=== PATIENT | female | born 1990 | race Caucasian/White ===

== ENCOUNTER → 2016-05-27 | Outpatient (CLI) | payer OTHER ==
[~2016-05-27] MED LIST: CEPH500C PO; FLUO20CA35 PO; IBUP-1050 PO; INSDGI SC; INSUINJ5 SC; LORA10TA5 PO; METF750T PO; MTR/600 PO; ZLF/50 PO; [UNRECOGNIZED DRUG - CODE] SQ
[2016-05-27 14:47] LABS: PREG INTERNAL NEGATIVE QC NEG CLEAR BACKGROUND; PREG INTERNAL POSITIVE QC POS CONTROL LINE
[2016-05-27 15:06] LABS: ALT/SGPT 18 U/L (12-78); AST/SGOT 6 U/L (15-37); BLOOD UREA NITROGEN 17 mg/dl (7-18); BUN/CREATININE RATIO 20.6 (10-20); CALCIUM 9.5 mg/dl (8.5-10.1); CARBON DIOXIDE 21 mmol/L (21-32); CHLORIDE 98 mmol/L (98-107); CHOLESTEROL 294 mg/dl (0-200); CREATININE 0.83 mg/dl (0.60-1.20); GLUCOSE 405 mg/dl (70-99); POTASSIUM 4.3 mmol/L (3.5-5.1); SODIUM 131 mmol/L (136-145); TRIGLYCERIDES 184 mg/dl (0-150); VERY LOW DENSITY LIPOPROT CALC 37 mg/dl
[2016-05-27 15:13] LABS: ALB/GLOB RATIO 0.9 (0.9-2); ALKALINE PHOSPHATASE 130 U/L (45-117); CHOLESTEROL/HDL RATIO 4.9; HDL CHOLESTEROL 60 mg/dl; LDL CHOLESTEROL CALCULATED 197 mg/dl
[2016-05-27 15:18] LABS: BETA-HYDROXYBUTYRATE 2.45 mg/dL (0.2-2.81)
[2016-05-27 19:28] LABS: CREATININE RANDOM URINE < 13.0 mg/dl
[2016-05-28 06:02] LABS: ESTIMATED AVERAGE GLUCOSE 369 mg/dl; HA1C FLAG Normal (Normal)
== END | disposition home or self-care (01) ==
LOC: C.LAB1850 13:49
PROVIDERS: ATTEND Internal Medicine
DX: E11.65 Type 2 diabetes mellitus with hyperglycemia (principal)

== ENCOUNTER → 2016-07-09 | Outpatient (CLI) | payer OTHER ==
[~2016-07-09] MED LIST changes: +BUSP-8 PO; +HYDR-5688 PO
[2016-07-09 16:27] LABS: THYROID STIMULATING HORMONE 1.71 uIu/ml (0.300-4.500)
[2016-07-14 04:22] LABS: ISLET CELL AB NEGATIVE (NEGATIVE); MICROSOMAL AB <1 IU/ML (<9)
== END | disposition home or self-care (01) ==
LOC: C.LAB1850 14:49
PROVIDERS: ATTEND Internal Medicine Endocrinology, Diabetes & Metabolism
DX: E11.65 Type 2 diabetes mellitus with hyperglycemia (principal)

== ENCOUNTER → 2016-08-24 | Outpatient (CLI) | payer OTHER | END | disposition home or self-care (01) | LOC: C.PAPS 07:56 | PROVIDERS: ATTEND Physician Assistant | DX: Z01.419 Encounter for gynecological examination (general) (routine) without abnormal findings (principal) ==

== ENCOUNTER 2016-09-11 18:13 | Emergency (ER) | payer OTHER ==
[~2016-09-11] VITALS: Ht 163.8 cm; Wt 107.9 kg
[~2016-09-11 18:13] MED LIST changes: -BUSP-8 PO; -CEPH500C PO; -HYDR-5688 PO; -INSUINJ5 SC; -LORA10TA5 PO; -METF750T PO; -MTR/600 PO; -ZLF/50 PO
[2016-09-11 18:15] VITALS: TEMP 36.6; Ht 163.8 cm; Wt 107.9 kg
[2016-09-11] MEDS ORDERED: XYLOCAINE 1%/SOD BICARB 20 ML VIAL INFIL ONE (18:31)
--- NOTE | 2016-09-11 18:37 | EMERGENCY ROOM VISIT NOTE ---
History Report prepared by Elva: Massiel Mir Under the Supervision of: Dr. Jagdish Mo M.D. First contact with patient: 18:24 Chief Complaint: WOUND INFECTION Stated Complaint: CYST, LEFT SIDE OF VAGINA Nursing Triage Summary: Pt states, "I have a really bad painful on the left side of my vagina and it got bigger over the past two days. I've had lots of these." Denies drainage. History of Present Illness The patient is a 26 year old female who presents to the Emergency Room with complaints of a worsening cyst to her vagina that appeared five days ago. She currently rates her discomfort as a 6/10 in severity. The patient reports that she has a history of previous cysts, noting that she has had them drained in the emergency department in the past. She states that over the last two days her pain has worsened. The patient states that she typically gets the cysts from ingrown hairs. She denies any fever or chills. The patient states that she is a diabetic and her blood glucose levels have been running 300-400 mg/dL. Source of History: patient Onset: five days ago Position: other (vagina) Symptom Intensity: 6/10 Quality: other (cyst) Timing: worsening Associated Symptoms: No fevers, No chills Review of Systems All systems have been listed, reviewed, and are negative other than those previously mentioned. Please see Additional Medical History Sheet. Past Medical & Surgical Medical Problems: (1) Abscess of labia (2) Abscess packing removal (3) Anxiety (4) Bronchitis (5) delivery delivered (6) De Quervain's tenosynovitis (7) Diab Selena Wo Compl, Type Ii Or Unspec Type, Not Uncntrld (8) Diabetes mellitus affecting in third trimester (9) Encounter for wound re-check (10) Fall (11) Hypertension Nos (12) Left groin pain (13) Lumbar strain (14) Migraine (15) Nausea & vomiting (16) Non-reassuring heart tones complicating , antepartum (17) Obesity (BMI 30.0-34.9) (18) Pain, dental (19) Preeclampsia (20) (21) Proteinuria affecting in third trimester, antepartum (22) Skin abscess (23) Type 2 diabetes mellitus affecting in third trimester, antepartum Surgical Problems: (1) H/O section (2) No significant past surgical history Family History Cancer Diabetes mellitus FATHER MOTHER SISTER, Onset:15's - 20 Heart disease FATHER ([place] MOTHER ( of [place]) GRANDFATHER [place] Hypertension Stroke GRANDMOTHER Social History Smoking Status: Never Smoker Alcohol Use: none Drug Use: none Marital Status: Housing Status: lives with family Occupation Status: unemployed Current/Historical Medications Scheduled Cephalexin Monohydrate (Keflex), 500 MG PO QID Insulin Glargine (Lantus), 50 UNITS SC BID Insulin Glulisine (Apidra), 30 UNITS SC TIDM Loratadine (Claritin), 10 MG PO DAILY Metformin Hcl (Glucophage Er), 750 MG PO DAILY Sertraline HCl (Sertraline HCl), 50 MG PO DAILY Scheduled PRN Ibuprofen (Ibuprofen), 600 MG PO Q6H PRN for Pain Allergies Coded Allergies: No Known Allergies (Unverified , 12/02/15) Physical Exam Vital Signs Date Time Temp Pulse Resp B/P (MAP) Pulse Ox O2 Delivery O2 Flow Rate FiO2 09/11/16 20:07 104 20 159/100 98 09/11/16 18:15 36.6 99 18 149/92 95 Room Air Physical Exam GENERAL: Patient awake, alert, oriented x 3. Patient follows commands. Patient does not appear toxic. Patient is adequately hydrated and well- nourished. SKIN: No erythema, pallor, cyanosis or rash HEENT: Normal head, pupils equal, reactive to light and accommodation. Ears normal. Oral cavity and posterior pharynx appear normal. Neck: Without adenopathy, no neck vein distention. LUNGS: Clear to auscultation. No wheezes, no rales, no rhonchi. HEART: No murmurs. No gallops. No rubs ABDOMEN: No masses, no rebound, no hepatomegaly or splenomegaly. GENITALIA: Small quarter sized sebaceous folliculi cyst just lateral to the labia major on the left. EXTREMITIES: No signs of trauma. No pedal or pretibial edema. No calf or thigh tenderness. NEUROLOGIC: Cranial nerves II-XII within normal limits. No gross motor sensory function deficits. Medical Decision & Procedures Laboratory Results 09/11/16 18:40 Red Blood Count 4.61, Mean Corpuscular Volume 82.9, Mean Corpuscular Hemoglobin 28.2, Mean Corpuscular Hemoglobin Concent 34.0, Mean Platelet Volume 11.5, Neutrophils (%) (Auto) 64.8, Lymphocytes (%) (Auto) 26.8, Monocytes (%) (Auto) 5.7, Eosinophils (%) (Auto) 1.7, Basophils (%) (Auto) 0.8, Neutrophils # (Auto) 5.34, Lymphocytes # (Auto) 2.21, Monocytes # (Auto) 0.47, Eosinophils # (Auto) 0.14, Basophils # (Auto) 0.07 09/11/16 18:40 Test 09/11/16 18:40 White Blood Count 8.25 K/uL (4.8-10.8) Red Blood Count 4.61 M/uL (4.2-5.4) Hemoglobin 13.0 g/dL (12.0-16.0) Hematocrit 38.2 % (37-47) Mean Corpuscular Volume 82.9 fL (80-100) Mean Corpuscular Hemoglobin 28.2 pg (25-34) Mean Corpuscular Hemoglobin Concent 34.0 g/dl (32-36) Platelet Count 267 K/uL (130-400) Mean Platelet Volume 11.5 fL (7.4-10.4) Neutrophils (%) (Auto) 64.8 % Lymphocytes (%) (Auto) 26.8 % Monocytes (%) (Auto) 5.7 % Eosinophils (%) (Auto) 1.7 % Basophils (%) (Auto) 0.8 % Neutrophils # (Auto) 5.34 K/uL (1.4-6.5) Lymphocytes # (Auto) 2.21 K/uL (1.2-3.4) Monocytes # (Auto) 0.47 K/uL (0.11-0.59) Eosinophils # (Auto) 0.14 K/uL (0-0.5) Basophils # (Auto) 0.07 K/uL (0-0.2) RDW Standard Deviation 37.0 fL (36.4-46.3) RDW Coefficient of Variation 12.2 % (11.5-14.5) Immature Granulocyte % (Auto) 0.2 % Immature Granulocyte # (Auto) 0.02 K/uL (0.00-0.02) Anion Gap 8.0 mmol/L (3-11) Est Creatinine Clear Calc Drug Dose 128.5 ml/min Estimated GFR () 117.0 Estimated GFR (Non- 100.9 BUN/Creatinine Ratio 13.4 (10-20) Calcium Level 8.1 mg/dl (8.5-10.1) Beta-Hydroxybutyric Acid 2.13 mg/dL (0.2-2.81) Laboratory results as stated above per my review. Medications Administered Medications (Trade) Dose Ordered Sig/Mercedes Route Start Time Stop Time Status Last Admin Dose Admin Insulin Human Regular (novoLIN-R U-100 PER UNIT) 10 units NOW STAT SC 09/11/16 20:12 09/11/16 20:14 DC 09/11/16 20:22 10 UNITS Cephalexin Monohydrate (Keflex Cap) 500 mg NOW ONCE PO 09/11/16 20:15 09/11/16 20:16 DC 09/11/16 20:20 500 MG Ibuprofen (Motrin Tab) 600 mg NOW STAT PO 09/11/16 20:12 09/11/16 20:14 DC 09/11/16 20:20 600 MG Procedure Incision & Drainage Indication: Abscess. Location: lateral to left labia majora Verbal consent was obtained after the risks and benefits were explained, including but not limited to bleeding, scarring, infection, pain, and bone/joint /nerve damage. At this time, the risks of the procedure are less than the risks of NOT performing the procedure. A time out was taken and the correct patient and site identified. The skin was prepped with betadine and a sterile field set. The wound was anesthetized with 2 ml of 1% lidocaine without epinephrine. The abscess cavity was entered with a number 11 blade and a large amount of white purulent material expressed. Copious irrigation was performed using normal saline. The wound was explored for foreign bodies and none found. 1 cm incision and was bluntly dissected with scissors and packed with plain gauze. Debridement was not performed. Packing placed and a sterile dressing applied. Detailed wound care instructions and signs and symptoms of worsening infection reviewed with the patient. No complications and the patient tolerated the procedure well. ED Course 1824: Past medical records reviewed. The patient was evaluated in room A12B. A complete history and physical examination was performed. 1830: Ordered Lidocaine HCl 20 ml INFIL. 1852: I performed the I&D at this time. See procedure note for further detail. 2008: I reevaluated the patient and she is resting comfortably. I discussed the exam findings with her. 2011: Ordered Motrin Tab 600 mg PO, Insulin Human Regular 10 units SC. 2014: Ordered Keflex Cap 500 mg PO. Medical Decision Nurses notes reviewed. Medical history sheet reviewed. Differential diagnosis includes but is not limited to: cellulitis, abscess, Bartholin's cyst. The patient is assessed near her Vulva. She has had this in that location the past. She is also had cysts on her arms. She has a history hiradenitis suppurativa. This was I&D and a large amount of his release. Culture was sent. A small amount of packing was placed. The patient will be placed on Keflex. I do not believe she needs Bactrim at this time. Patient has had multiple cultures past which has not grown out any MRSA. Labs were also evaluated. Blood sugar is over 400. She was given 10 units of subcutaneous insulin. Patient was taken regular Lantus insulin tonight. This was also given ibuprofen and Keflex. She will continue those medications at home. Medication Reconciliation: I attest that I have personally reviewed the patient' s current medication list. Blood Pressure Screening: Patient was found to have an elevated blood pressure and was referred to their primary doctor for recheck and further treatment. Impression Primary Impression: Hidradenitis Additional Impression: Skin abscess Scribe Attestation The scribe's documentation has been prepared under my direction and personally reviewed by me in its entirety. I confirm that the note above accurately reflects all work, treatment, procedures, and medical decision making performed by me. Departure Information Dispostion Home / Self-Care Prescriptions Cephalexin Monohydrate (Keflex) 500 Mg Cap 500 MG PO QID, #20 CAP Prov: Jagdish Mo M.D. 09/11/16 Referrals Oren Patton M.D. (PCP) Forms HOME CARE DOCUMENTATION FORM, IMPORTANT VISIT INFORMATION, WORK / SCHOOL INSTRUCTIONS Patient Instructions My [facility] Additional Instructions Apply warmth soaks to the affected area 3 times a day. Keflex 4 times a day and return in 2 days to have the packing removed. Have your blood pressure rechecked by your family physician within the next 10 days. Check your blood sugar tonight before going to bed and then recheck your blood sugars frequently over the next 48 hours. Problem Qualifiers
[2016-09-11] MEDS ORDERED: METF750T PO (18:56)
[2016-09-11] MEDS ORDERED: MTR/600 PO (18:56)
[2016-09-11] MEDS ORDERED: LORA10TA5 PO (18:56)
[2016-09-11] MEDS ORDERED: INSUINJ5 SC (18:56)
[2016-09-11] MEDS ORDERED: ZLF/50 PO (18:56)
[2016-09-11] MEDS ORDERED: INSDGI SC (18:56)
[2016-09-11 19:02] LABS: BASO % 0.8 %; BASO ABS # 0.07 K/uL (0-0.2); COMPLETE YES; EOS % 1.7 %; HEMATOCRIT 38.2 % (37-47); IG% 0.2 %; LYMPH % 26.8 %; LYMPH ABS # 2.21 K/uL (1.2-3.4); MEAN CELL VOLUME 82.9 fL (80-100); MEAN CORPUSCULAR HEMOGLOBIN 28.2 pg (25-34); MEAN PLATELET VOLUME 11.5 fL (7.4-10.4); MONO % 5.7 %; NEUT % 64.8 %; PLATELET COUNT 267 K/uL (130-400); RED BLOOD COUNT 4.61 M/uL (4.2-5.4); WHITE BLOOD COUNT 8.25 K/uL (4.8-10.8)
[2016-09-11 19:28] LABS: BUN/CREATININE RATIO 13.4 (10-20); CALCIUM 8.1 mg/dl (8.5-10.1); CREATININE 0.81 mg/dl (0.60-1.20); POTASSIUM 4.2 mmol/L (3.5-5.1)
[2016-09-11 19:41] LABS: BETA-HYDROXYBUTYRATE 2.13 mg/dL (0.2-2.81)
[2016-09-11] MEDS ORDERED: CEPH500C PO (20:05)
[2016-09-11] MEDS ORDERED: NovoLIN-R INSULIN PER UNIT CHARGE SC STA (20:12)
[2016-09-11] MEDS ORDERED: IBUPROFEN 600 MG TAB PO STA (20:12)
[2016-09-11] MEDS ORDERED: CEPHALEXIN MONOHYDRATE 250 MG CAP PO ONE (20:15)
[2016-09-11 20:39] VITALS: BP 132/87; PULSE 84; O2SAT 95
== END 2016-09-11 21:11 | disposition home or self-care (01) ==
LOC: C.EDB 18:14 → C.EDA 21:11
DX: L73.2 Hidradenitis suppurativa (principal); N76.0 Acute vaginitis; E11.9 Type 2 diabetes mellitus without complications; I10 Essential (primary) hypertension; F41.9 Anxiety disorder, unspecified; Z83.3 Family history of diabetes mellitus; Z82.49 Family history of ischemic heart disease and other diseases of the circulatory system; Z82.3 Family history of stroke

== ENCOUNTER 2017-01-31 10:35 | Emergency (ER) | payer OTHER ==
[~2017-01-31] VITALS: Ht 162.6 cm; Wt 104.2 kg
[~2017-01-31 10:35] MED LIST changes: +CEPH500C PO; -FLUO20CA35 PO; -IBUP-1050 PO; +INSUINJ5 SC; +LORA10TA5 PO; +METF750T PO; +MTR/600 PO; +ZLF/50 PO; -[UNRECOGNIZED DRUG - CODE] SQ
[2017-01-31 10:49] VITALS: TEMP 37.1; Ht 162.6 cm; Wt 104.2 kg
[2017-01-31] MEDS ORDERED: HYDROCODONE/ACETAMOPHEN 5/325MG TAB PO STA (10:56)
[2017-01-31] MEDS ORDERED: BUSP-8 PO (11:06)
--- NOTE | 2017-01-31 11:32 | DIAGNOSTIC IMAGING REPORT ---
R KNEE 3 VIEWS CLINICAL HISTORY: R knee pain s/p twisting trauma. Pain. COMPARISON: None. DISCUSSION: The bones and joint spaces appear intact. There is no evidence of dislocation or bony disease. small joint effusion. Small old avulsion from the medial patella. Potential small flake like avulsion medial patella possibly acute to subacute. IMPRESSION: 1. Small flake like avulsion medial patella. Small joint effusion. The above report was generated using voice recognition software. It may contain grammatical, syntax or spelling errors. Electronically signed by: Stone David M.D. 01/31/2017 11:31 AM Dictated Date/Time: 01/31/2017 11:29 AM
[2017-01-31] MEDS ORDERED: HYDR-5688 PO (11:59)
--- NOTE | 2017-01-31 12:00 | EMERGENCY ROOM VISIT NOTE ---
History First contact with patient: 10:51 Chief Complaint: KNEEPAIN Stated Complaint: RIGHT KNEE PAIN-INJURED ON TUESDAY History of Present Illness The patient is a 27 year old female who presents to the Emergency Room via private vehicle with complaints of "right knee pain, injured on Tuesday". The patient states that Tuesday she was going [place] an amusement park, when she was attempting to get into the van and twisted her right knee. She points to the lateral medial aspects as a location of pain that she currently rates as a 5/ 10. She denies any chance of . Review of Systems A complete 6-point Review of Systems was discussed with the patient, with pertinent positives and negatives listed in the History of Present Illness. All remaining Review of Systems questions can be considered negative unless otherwise specified. Past Medical/Surgical History Medical Problems: (1) Abscess of labia (2) Abscess packing removal (3) Anxiety (4) Bronchitis (5) delivery delivered (6) De Quervain's tenosynovitis (7) Diab Selena Wo Compl, Type Ii Or Unspec Type, Not Uncntrld (8) Diabetes mellitus affecting in third trimester (9) Encounter for wound re-check (10) Fall (11) Hypertension Nos (12) Left groin pain (13) Lumbar strain (14) Migraine (15) Nausea & vomiting (16) Non-reassuring heart tones complicating , antepartum (17) Obesity (BMI 30.0-34.9) (18) Pain, dental (19) Preeclampsia (20) (21) Proteinuria affecting in third trimester, antepartum (22) Skin abscess (23) Type 2 diabetes mellitus affecting in third trimester, antepartum Surgical Problems: (1) H/O section (2) No significant past surgical history Family History Cancer Diabetes mellitus FATHER MOTHER SISTER, Onset:15's - 20 Heart disease FATHER ([place]) MOTHER ( of [place]) GRANDFATHER ([place]) Hypertension Stroke GRANDMOTHER Social History Smoking Status: Never Smoker Alcohol Use: none Drug Use: none Marital Status: Housing Status: lives with family Occupation Status: unemployed Current/Historical Medications Scheduled Buspirone Hcl (Buspirone Hcl), 10 MG PO BID Insulin Glargine (Lantus), 50 UNITS SC BID Insulin Glulisine (Apidra), 60 UNITS SC TIDM Loratadine (Claritin), 10 MG PO DAILY Metformin Hcl (Glucophage Er), 750 MG PO DAILY Scheduled PRN Hydrocodone/Acetaminophen 5MG/325MG ([place] 5MG/325MG), 1-2 TABLET PO Q6 PRN for Pain Physical Exam Vital Signs Date Time Temp Pulse Resp B/P (MAP) Pulse Ox O2 Delivery O2 Flow Rate FiO2 01/31/17 12:10 82 16 131/99 98 01/31/17 10:49 37.1 74 18 149/96 98 Room Air Physical Exam VITAL SIGNS - Vital signs and nursing notes were reviewed. Stable. GENERAL - 27-year-old female appearing her stated age who is in no acute distress. Communicates well with provider and answers questions appropriately. SKIN - Without rashes. Skin overlying the right knee is unremarkable. EXTREMITIES - No clubbing or peripheral cyanosis. No pretibial edema present. There is tenderness to palpation overlying the patient's right anterior and medial and lateral aspects of the anterior knee. There is also some posterior knee tenderness. +5/5 strength noted in UE/LE bilaterally. She is neurovascularly intact in the right lower extremity. Medical Decision & Procedures ER Provider Diagnostic Interpretation: R KNEE 3 VIEWS CLINICAL HISTORY: R knee pain s/p twisting trauma. Pain. COMPARISON: None. DISCUSSION: The bones and joint spaces appear intact. There is no evidence of dislocation or bony disease. small joint effusion. Small old avulsion from the medial patella. Potential small flake like avulsion medial patella possibly acute to subacute. IMPRESSION: 1. Small flake like avulsion medial patella. Small joint effusion. The above report was generated using voice recognition software. It may contain grammatical, syntax or spelling errors. Electronically signed by: Stone David M.D. 01/31/2017 11:31 AM Dictated Date/Time: 01/31/2017 11:29 AM Medications Administered Medications (Trade) Dose Ordered Sig/Mercedes Route Start Time Stop Time Status Last Admin Dose Admin Acetaminophen/ Hydrocodone Bitart ([place] 5/325 Tab) 1 tab NOW STAT PO 01/31/17 10:56 01/31/17 10:57 DC 01/31/17 11:08 1 TAB Medical Decision Patient was seen and evaluated as above. She presents to us today with right knee pain status post twisting injury. The posterior knee pain did not start until after the injury. I do not suspect DVT. X-ray was obtained after her verifying no chance of . She was given [place] for her pain while here in the emergency department as well as ice. X-ray results as above. There is a small avulsion which may be acute/subacute. Regardless, she'll be splinted with a knee immobilizer, made nonweightbearing with crutches. She is to follow with her established orthopedic surgeon. She'll be given a small prescription of [place] for pain which was beneficial for her while in the emergency department. She was educated upon management, educated upon worrisome symptoms which to return, had questions answered prior to discharge, and was discharged home in good condition. In the evaluation and treatment of this patient, the following differential diagnoses were considered: Patellar Fracture, Tibial Plateau Fracture, Distal Femur Fracture, ACL Injury, PCL Injury, Collateral Ligament Injury, Pes Anserine Bursitis, Maison[place]uve Fracture. [place] Drug Monitoring Program Search Results: patient reviewed within database, no issues identified Impression Primary Impression: Knee pain Departure Information Dispostion Home / Self-Care Condition GOOD Prescriptions Hydrocodone/Acetaminophen 5MG/325MG ([place] 5MG/325MG) Tab 1-2 TABLET PO Q6 Y for Pain, #15 TAB For Initial Treatment Prov: Carlo Ott PA-C 01/31/17 Referrals Oren Patton M.D. (PCP) Yassine Canela V.D.O. Patient Instructions My [facility] Additional Instructions You have been treated in the Emergency Department for Knee Pain. You have received pain medicine in the emergency department which impairs your ability to operate a vehicle. It is illegal for you to drive after receiving these medicines. You have been prescribed NORCO to be used for pain control. This is a narcotic medication. You cannot drive or consume alcohol while on this medicine. This medicine should only be used for pain that cannot be controlled with over-the- counter pain medicines. For pain control, you can use the following [id number] medicines (if >12 yo): - Regular strength (325mg/tab) Tylenol (acetaminophen) 2 tabs every 4-6 hours as needed. Do not exceed 12 tablets in a 24 hour period. Avoid taking more than 3 grams (3000 mg) of Tylenol per day. This includes any other sources of acetaminophen you may take on a regular basis. Not with NORCO!! - Regular strength (200 mg/tab) Advil (ibuprofen) 1-2 tabs every 4-6 hours as needed. Do not exceed a dose of 3200 mg per day. If this is a recent injury (<24 hrs), ice can be applied to the area of pain for the first 3 days to help decrease pain and inflammation. Ice massages can be performed by freezing water in a paper cup, peeling back the cup to expose the ice and then massaging over the affected area. You have been provided the number for an Orthopaedic Surgeon. You should call this number as soon as possible to establish a follow-up visit from today's Emergency Department visit. Keep the knee brace in place until cleared by Orthopedics. Use the crutches you have been provided to keep ALL weight off of the knee until weight bearing is tolerable. Return to the Emergency Department if your current symptoms worsen despite treatment course outlined above.
[2017-01-31 12:10] VITALS: BP 131/99; PULSE 82; O2SAT 98
== END 2017-01-31 12:10 | disposition home or self-care (01) ==
LOC: C.EDB 10:36 → C.EDD 12:10
DX: M25.561 Pain in right knee (principal); I10 Essential (primary) hypertension; E11.9 Type 2 diabetes mellitus without complications; F41.9 Anxiety disorder, unspecified; Z87.828 Personal history of other (healed) physical injury and trauma; Z86.19 Personal history of other infectious and parasitic diseases; Z91.81 History of falling

== ENCOUNTER 2017-04-23 16:50 | Emergency (ER) | payer OTHER ==
[~2017-04-23] VITALS: Ht 162.6 cm; Wt 101.5 kg
[~2017-04-23 16:50] MED LIST changes: +BUSP-8 PO; -CEPH500C PO; +HYDR-5688 PO; -INSDGI SC; +INSDGI SQ; -LORA10TA5 PO; +LORA10TA6 PO; -MTR/600 PO; -ZLF/50 PO
[2017-04-23 16:59] VITALS: TEMP 37; Ht 162.6 cm; Wt 101.5 kg
[2017-04-23] MEDS ORDERED: BUSP-8 PO (17:16)
[2017-04-23] MEDS ORDERED: HYDR-5688 PO ×2 (17:17→18:21)
[2017-04-23] MEDS ORDERED: LIDO/EPINEPHRINE/SOD BICARB 20 ML VIAL INFIL ONE (17:30)
[2017-04-23] MEDS ORDERED: HYDROCODONE/ACETAMOPHEN 5/325MG TAB PO ONE (17:30)
[2017-04-23] MEDS ORDERED: CEPH500C2 PO (18:21)
--- NOTE | 2017-04-23 18:23 | EMERGENCY ROOM VISIT NOTE ---
ED Visit Note First contact with patient: 17:08 CHIEF COMPLAINT: Infection in the left groin 2 days HISTORY OF PRESENT ILLNESS: Patient is a 27-year-old white female who presents to the emergency department for evaluation of a suspected abscess in her left groin area. She has a history of hidradenitis, and has had multiple abscesses, some of which have required I&D. The patient reports that she wore new underwear about 3 days ago, and they were a little tight. She states that the abscess developed the following day in the crease of her left groin where the underwear was squeezing. She has been sitting in a hot tub, but symptoms are not improving. The area is slowly getting larger, more painful and tender. No fever, chills, or loss of appetite. She found an old prescription for Olga, and has taken a few tablets for discomfort. The patient rates her discomfort a 8/10. REVIEW OF SYSTEMS: Review of systems as per HPI. All other systems reviewed were negative. At least 6 systems reviewed. PMH: Electronic medical records are reviewed and summarized as above/below. See Problem List. SOCIAL HISTORY: Patient lives at home with her family. PHYSICAL EXAM: Vital Signs: Reviewed Nurse's notes. CONSTITUTIONAL: Patient is a well appearing, uncomfortable, 27-year-old white female who is awake and alert and in no acute distress. INTEGUMENTARY: There is an indurated area in the left inguinal crease which measures about 3 x 5 cm. It is tender and fluctuant but there is no pointing or drainage. There is some surrounding erythema, no overt cellulitic changes. EMERGENCY DEPARTMENT COURSE: The patient was seen and examined as above. Old records are reviewed. She does not have a history of MRSA. She was medicated with 2 Olga tablets orally prior to I&D procedure. Using saline and Betadine cleansing, lidocaine anesthesia, and sterile technique, the abscess cavity was incised with a number 11 scalpel blade. Purulent material drained and more was expressed. Culture was obtained and is pending. The abscess cavity was decompressed, irrigated copiously with normal saline solution, and probed for loculations. Abscess was then packed with plain gauze packing in Betadine. Absorbent dressing was applied. The patient was placed on Keflex pending the culture results. She rated her discomfort a 1/10 at discharge. The abscess does not involve the perirectal or perianal areas. The labia are spared. Medication reconciliation: I attest that I have personally reviewed the patient' s current medication list. Blood pressure screening : Patient was found to have normal blood pressure on screening and does not require follow-up. Patient was reviewed in the [facility] Prescription Drug Monitoring Program, and there were no red flags noted. Problem List Medical Problems: (1) Abscess of labia Status: Resolved (2) Abscess packing removal Status: Resolved (3) Anxiety Status: Chronic (4) Bronchitis Status: Resolved (5) delivery delivered Status: Resolved (6) De Quervain's tenosynovitis Status: Chronic (7) Diab Selena Wo Compl, Type Ii Or Unspec Type, Not Uncntrld Status: Chronic (8) Diabetes mellitus affecting in third trimester Status: Resolved (9) Encounter for abscess packing removal Status: Resolved (10) Encounter for wound re-check Status: Resolved (11) Encounter for wound re-check Status: Resolved (12) Fall Status: Resolved (13) Hidradenitis Status: Chronic (14) Hypertension Nos Status: Chronic (15) Insulin dependent diabetes mellitus Status: Resolved (16) Knee pain Status: Resolved (17) Left groin pain Status: Resolved (18) Lumbar strain Status: Resolved (19) Lymphangitis Status: Resolved (20) Migraine Status: Resolved (21) Nausea & vomiting Status: Resolved (22) Non-reassuring heart tones complicating , antepartum Status: Resolved (23) Normal psychiatric assessment Status: Resolved (24) Obesity (BMI 30.0-34.9) Status: Chronic (25) Pain, dental Status: Resolved (26) Paronychia of right ring finger Status: Resolved (27) Paronychia of right ring finger Status: Resolved (28) Preeclampsia Status: Resolved (29) Status: Resolved (30) Proteinuria affecting in third trimester, antepartum Status: Resolved (31) Skin abscess Status: Resolved (32) Type 2 diabetes mellitus affecting in third trimester, antepartum Status: Resolved Surgical Problems: (1) H/O section Status: Chronic (2) No significant past surgical history Status: Resolved Current/Historical Medications Scheduled Buspirone Hcl (Buspirone Hcl), 20 MG PO HS Cephalexin Monohydrate (Keflex), 500 MG PO TID Insulin Glargine (Lantus), 50 UNITS SQ BID Insulin Glulisine (Apidra), 60 UNITS SC TIDM Loratadine (Claritin), 10 MG PO DAILY Metformin Hcl (Glucophage Er), 750 MG PO DAILY Scheduled PRN Hydrocodone/Acetaminophen 5MG/325MG (Olga 5MG/325MG), 1 TAB PO TID PRN for Pain Hydrocodone/Acetaminophen 5MG/325MG (Olga 5MG/325MG), 1-2 TABLETS PO Q4 PRN for Pain Allergies Coded Allergies: No Known Allergies (Unverified , 01/31/17) Vital Signs Date Time Temp Pulse Resp B/P (MAP) Pulse Ox O2 Delivery O2 Flow Rate FiO2 04/23/17 18:40 85 20 149/90 95 Room Air 04/23/17 16:59 37.0 103 20 140/95 96 Room Air Medications Administered Medications (Trade) Dose Ordered Sig/Mercedes Route Start Time Stop Time Status Last Admin Dose Admin Acetaminophen/ Hydrocodone Bitart (Olga 5/325 Tab) 2 tab NOW ONCE PO 04/23/17 17:30 04/23/17 17:31 DC 04/23/17 17:46 2 TAB Cephalexin Monohydrate (Keflex Cap) 500 mg NOW ONCE PO 04/23/17 18:30 04/23/17 18:31 DC 04/23/17 18:40 500 MG Departure Information Impression Primary Impression: Skin abscess Prescriptions Hydrocodone/Acetaminophen 5MG/325MG (Olga 5MG/325MG) Tab 1-2 TABLETS PO Q4 Y for Pain, #20 TAB For Initial Treatment Prov: Paola Ruiz PA 04/23/17 Cephalexin Monohydrate (KEFLEX) 500 Mg Cap 500 MG PO TID, #30 CAP Prov: Paola Ruiz PA 04/23/17 Referrals No Doctor, Assigned (PCP) Patient Instructions My [facility] Additional Instructions DO NOT drive, drink alcohol, operate machinery, or perform dangerous activities today. You were given medications in the ER that can affect your ability to safely function or operate a vehicle. Hydrocodone/Acetaminophen (Olga) 5/325 mg: Take 1-2 pills every four hours for breakthrough pain. Avoid alcohol, operating machinery or dangerous equipment, working on ladders or roofs, DRIVING, or situations where being under the influence may be dangerous. It is recommended to use an ockf-sxd-dtyzjpx stool softener such as Colace, 100mg twice daily while taking this medication to avoid constipation. Cephalexin(Keflex) 500mg: Take one pill 3 times daily for 10 days for your skin infection. All antibiotics can cause diarrhea. If this occurs and you feel worse or it does not resolve in 1-2 days follow up with your doctor or return to the Emergency Department as this could be signs of serious underlying problems. Any medication can cause an allergic reaction, stop the pills immediately and return to the ER for rash, hives, breathing difficulties, or swelling. Ibuprofen(Motrin, Advil) may be used for fever or pain. Use 600mg every six hours as needed. Take with food. Avoid using more than 2400mg in a 24 hour period. Do not use 2400mg per day for more than three consecutive days without physician direction. Prolonged inappropriate use can lead to stomach upset or ulcers. (AND/OR) Acetaminophen(Tylenol) may be used for fever or pain. Use 1000mg every six hours as needed. Avoid using more than 3000mg in a 24 hour period. Warm compresses to the affected area 4 times daily for 15-20 minutes. Dressing changes daily, more often if the area becomes saturated or soiled. May shower, be careful to not inadvertently removed the packing in changes. Rest and drink plenty of fluids. Continue current medications. Packing removal in 48 hours. Return to the ER for severe pain, persistent fevers, spreading redness, or any worsening of your condition. Follow up with your primary physician within 2-3 days for a recheck of the current condition.
[2017-04-23] MEDS ORDERED: CEPHALEXIN MONOHYDRATE 250 MG CAP PO ONE (18:30)
[2017-04-23 18:40] VITALS: BP 149/90; PULSE 85; O2SAT 95
== END 2017-04-23 18:43 | disposition home or self-care (01) ==
LOC: C.EDB 16:51 → C.EDC 18:43
DX: L02.214 Cutaneous abscess of groin (principal); F41.9 Anxiety disorder, unspecified; M65.4 Radial styloid tenosynovitis [de Quervain]; E11.9 Type 2 diabetes mellitus without complications; L73.2 Hidradenitis suppurativa; I10 Essential (primary) hypertension; E66.9 Obesity, unspecified; Z79.4 Long term (current) use of insulin; Z79.84 Long term (current) use of oral hypoglycemic drugs

== ENCOUNTER → 2017-05-03 | Outpatient (CLI) | payer OTHER ==
[~2017-05-03] MED LIST changes: +CEPH500C2 PO
[2017-05-03 10:48] LABS: ALBUMIN 3.6 gm/dl (3.4-5.0); ALKALINE PHOSPHATASE 123 U/L (45-117); ALT/SGPT 16 U/L (12-78); AST/SGOT 4 U/L (15-37); BLOOD UREA NITROGEN 11 mg/dl (7-18); CALCIUM 8.9 mg/dl (8.5-10.1); CARBON DIOXIDE 23 mmol/L (21-32); CHOLESTEROL 223 mg/dl (0-200); CREATININE 0.79 mg/dl (0.60-1.20); GLUCOSE 375 mg/dl (70-99); LDL CHOLESTEROL CALCULATED 156 mg/dl; SODIUM 132 mmol/L (136-145)
[2017-05-03 12:17] LABS: HEMOGLOBIN A1C 13.9 % (4.5-5.6)
[2017-05-05 16:38] LABS: C-PEPTIDE** TC 372 1.33 NG/ML (0.80-3.85)
== END | disposition home or self-care (01) ==
LOC: C.LAB1850 09:21
PROVIDERS: ATTEND Internal Medicine Endocrinology, Diabetes & Metabolism
DX: E11.65 Type 2 diabetes mellitus with hyperglycemia (principal)

== ENCOUNTER → 2017-05-04 | Outpatient (CLI) | payer OTHER ==
--- NOTE | 2017-05-04 12:58 | DIAGNOSTIC IMAGING REPORT ---
SOFT TISS HEAD/NECK-THYROID CLINICAL HISTORY: 27 years-old Female with E04.9 Enlarged [id number]. COMPARISON: CTA of the chest 12/02/2015 TECHNIQUE: Multiple real time sonographic images of the thyroid were obtained accessing vega scale appearance and color doppler flow. FINDINGS: MEASUREMENTS: Right lobe: 5.5 x 1.4 x 1.8 cm Left lobe: 5.0 x 1.4 x 1.4 cm Isthmus: 0.3 cm PARENCHYMA: The thyroid parenchymal echotexture is homogeneous. NODULES: No discrete nodules are appreciated. IMPRESSION: Homogeneous thyroid parenchyma without focal nodule identified. The above report was generated using voice recognition software. It may contain grammatical, syntax or spelling errors. Electronically signed by: Micheal Saldivar M.D. 05/04/2017 12:56 PM Dictated Date/Time: 05/04/2017 12:55 PM
== END | disposition home or self-care (01) ==
LOC: C.ULTR 12:32
PROVIDERS: ATTEND Internal Medicine Endocrinology, Diabetes & Metabolism
DX: E04.9 Nontoxic goiter, unspecified (principal)

== ENCOUNTER → 2017-06-16 | Outpatient (CLI) | payer OTHER ==
[2017-06-16 14:02] LABS: HEP C IGG 13 YRS+OLDER_RFLX NEG (NEG)
== END | disposition home or self-care (01) ==
LOC: C.LAB1850 11:06 → EDBD 11:06
PROVIDERS: ATTEND Physician Assistant
DX: Z11.3 Encounter for screening for infections with a predominantly sexual mode of transmission (principal); L29.8 Other pruritus; R39.9 Unspecified symptoms and signs involving the genitourinary system

== ENCOUNTER 2019-01-19 05:12 | Inpatient (IN) ==
--- NOTE | 2019-01-17 15:28 | PAT Medication Instructions ---
Medication Instructions Date of Service January 17, 2019 Home Medications Medication Instructions Recorded insulin syringe U-100 with needle #200 ea 12/26/18 1 mL 31 gauge x 08/24" loratadine 10 mg tablet 10 mg PO QAM #30 tab 01/16/19 aspirin 81 mg tablet,delayed release 81 mg PO DAILY vitamin,calcium,snuknfno-cziu-hxjpk acid tablet 1 tab PO QAM ranitidine 150 mg tablet 150 mg PO BID insulin glargine [Basaglar KwikPen U-100 Insulin] 40 unit SUBCUT QAM insulin lispro [Admelog U-100 Insulin lispro] See Rx Instructions .ROUTE .COMPLEX insulin glargine [Basaglar KwikPen U-100 Insulin] 50 unit SUBCUT HS levothyroxine 50 mcg PO QAM loratadine 10 mg tablet 10 mg PO QAM ASK your prescriber and surgeon aspirin 81 mg tablet,delayed release 81 mg PO DAILY DO NOT take the morning of surgery vitamin,calcium,teptupfi-zvgh-dkttf acid tablet 1 tab PO QAM insulin lispro [Admelog U-100 Insulin lispro] See Rx Instructions .ROUTE .COM PLEX loratadine 10 mg tablet 10 mg PO QAM Take morning of surgery With a small sip of water, OTHERWISE NOTHING TO EAT OR DRINK AFTER MIDNIGHT: ranitidine 150 mg tablet 150 mg PO BID levothyroxine 50 mcg PO QAM Take evening before surgery ranitidine 150 mg tablet 150 mg PO BID insulin lispro [Admelog U-100 Insulin lispro] See Rx Instructions .ROUTE .COMPLEX insulin glargine [Basaglar KwikPen U-100 Insulin] 50 unit SUBCUT HS Insulin Dependent Diabetic Patients * Test your blood sugar the morning of surgery * If Blood Sugar is GREATER THAN 150, take HALF of your regular dose of: insulin glargine [Basaglar KwikPen U-100 Insulin] take 20 units * If Blood Sugar is LESS THAN 150, DO NOT TAKE ANY: insulin glargine [Basaglar KwikPen U-100 Insulin] Other Notes If you have any questions please call us at [phone] or [phone] or [phone] or [phone]
--- NOTE | 2019-01-18 15:26 | Anesthesiology Consultation ---
Date of Service January 18, 2019 Assessment & Plan (1) Encounter for pre-operative examination: Per OB, no preop labs to be drawn at [facility]- to draw AM DOS. Chart Review Chart Review: Acceptable Risk for Surgery (pending preop labs AM DOS) and Patient seen in Pre Admission Testing Teaching & Discussion Pre-Anesthesia Teaching/Discussion Notes: Instructed NPO after midnight before surgery,except medications with 15 cc of water. Medication instructions provided according to the [facility] guidelines. History Surgery Operation Date: 01/19/19 07:30 Proposed Procedures p Section in LD - Nani Burns MD, FACOG Height/Weight Height: 5 ft 4.5 in Weight: 131 kg Allergies Allergy/AdvReac Type Severity Reaction Status Date / Time No Known Allergies Allergy Verified 01/18/19 13:47 Medications Home Medications Medication Instructions Recorded Confirmed Last Taken aspirin 81 mg tablet,delayed 81 mg PO DAILY 11/08/18 01/18/19 12/29/18 09:30 release 1 tab PO QAM 11/08/18 01/18/19 12/29/18 09:30 vitamin,calcium,ukoottek-vbos-jqrcp acid tablet ranitidine 150 mg tablet 150 mg PO BID 11/15/18 01/18/19 12/29/18 09:30 insulin glargine [Basaglar KwikPen 40 unit SUBCUT QAM 12/16/18 01/18/19 12/29/18 09:30 U-100 Insulin] insulin lispro [Admelog U-100 See Rx Instructions .ROUTE .COMPLEX 12/16/18 01/18/19 12/28/18 20:00 Insulin lispro] insulin syringe U-100 with needle #200 ea 12/26/18 01/18/19 Unknown 1 mL 31 gauge x 5/16" insulin glargine [Basaglar KwikPen 50 unit SUBCUT HS 01/10/19 01/18/19 Unknown U-100 Insulin] levothyroxine 50 mcg PO QAM 01/10/19 01/18/19 Unknown loratadine 10 mg tablet 10 mg PO QAM #30 tab 01/16/19 01/18/19 Unknown Past Medical History Medical History Acid reflux related Anxiety Depression Diabetes dx age 12; IDDM History of pre-eclampsia in prior , currently on ASA Hypothyroidism Morbid obesity Exercise / Class Metabolic Activity III < 4 Walking/Shop/Light housework Past Family History Family History Mother Anxiety Lung disease Myocardial infarction Heart disease Hypertension Hyperlipidemia Diabetes Father Anxiety Lung disease Myocardial infarction Heart disease Hypertension Multiple sclerosis Diabetes Grandmother (Maternal) Cancer Colorectal cancer Ovarian cancer Sister Diabetes Grandmother (Paternal) Transient ischemic attack (TIA) Past Surgical History Surgical History History of hand surgery (Resolved) left for trigger finger H/O section 12/09/2014 2/2 distress; "good pain control" with SAB perioperatively H/O sinus surgery 2006 H/O tooth extraction top 2 wisdom teeth-2010 History of gynecologic surgery CO2 laser ablation of vulvar lesion History of tonsillectomy as a child Past Anesthesia History No Hx of Anesthesia Complications and No Family Hx of Anesthesia Complications History of PONV No Hx of PONV and No Hx of Motion Sickness Social History Smoking Status: Never smoker Do You Dip or Chew Tobacco: No Hx Alcohol Use: No alcohol intake frequency: holidays/special occasions only Hx Substance Use: No substance use type: does not use Review of Systems related reflux. Patient denies chest pain, shortness of breath, cough, wheezing, palpitations. Physical Exam Vital Signs VITALS BP 140/90 (BP 144/100 at OB visit 01/17*) P TEMP 98.5 SP02 94%RA RESP 16 PHYSICAL Full neck and c-spine range of motion. Full TMJ range of motion. TMD 3.5 finger breaths Mallampati Score 2 Dentition: missing sides/molars Lungs: clear throughout to auscultation Cardiac: regular rate and rhythm, no murmurs noted Spine: normal Extremities: no edema Testing Laboratory Results 01/17/19 WBC 7.26 H/H 12.0/36.7 PLATELETS 254 SODIUM 133 POTASSIUM 4.5 CHLORIDE 105 CO2 18 BUN 17 CREATININE 0.96 GLUCOSE 299 12/06/18 TSH 1.020 01/05/19 HGBA1C 8.8%
--- NOTE | 2019-01-18 18:08 | History & Physical Report ---
Date of Service January 18, 2019 Assessment & Plan (1) Gestational hypertension without significant proteinuria: plan repeat C/S at 37 weeks because of gestational HTN & poorly controlled IDDM Present on Admission?: Yes (2) Diabetes mellitus type 2 with complications, uncontrolled: (3) H/O section complicating : patient is a 28 yo white female with Gestational HTN, & IDDM poorly controlled during this resulting in suspected macrosomia plan is to proceed with repeat C/S The procedure & it's risks were reviewed at length with the patient & her & all questions were answered to their satisfaction. Present on Admission?: Yes History of Present Illness Chief Complaint: patient is a 28 yo white female EDC 02/07/19 who presents for repeat C/S at 37 weeks because of gestational HTN & poorly controlled diabetes mellitus pre-dating this .she is now on insulin and blood sugars are still poorly controlled. Patient states that her sugars now are under 200. Besides the gestational HTN, DM & hypothyroidism, this was complicated by mild constriction of the aortic arch in the fetus. After consultaton marina Ulices, the conclusion was that she could be delivered at [facility]. This was also approved by the pediatric hospitalist service. Growth scans have been >75%tile with the last EFW at >98%tile. NST's have been reactive except for 2 incidences of a single moderate variable noted on the NST requiring prolonged monitoring at L&D. Todays NST has been reactive. First C/S was done for NRFHT and she is now agreeable for repeat C/S at 37 weeks. A(+) Rubella- Immune. HIV/RPR/HepB -negative anatomy complete & normal except for heart anatomy as noted above. GC/chlam not detected GBS-positive Primary Care Provider: Oren Patton MD Allergies Allergy/AdvReac Type Severity Reaction Status Date / Time No Known Allergies Allergy Verified 01/18/19 13:47 Home Medications Home Medications Medication Instructions Recorded Confirmed Type aspirin 81 mg tablet,delayed 81 mg PO DAILY 11/08/18 01/18/19 History release 1 tab PO QAM 11/08/18 01/18/19 History vitamin,calcium,rowkwves-snsu-ikfnq acid tablet ranitidine 150 mg tablet 150 mg PO BID 11/15/18 01/18/19 History insulin glargine [Basaglar KwikPen 40 unit SUBCUT QAM 12/16/18 01/18/19 History U-100 Insulin] insulin lispro [Admelog U-100 See Rx Instructions .ROUTE .COMPLEX 12/16/18 01/18/19 History Insulin lispro] insulin syringe U-100 with needle #200 ea 12/26/18 01/18/19 Rx 1 mL 31 gauge x 5/16" insulin glargine [Basaglar KwikPen 50 unit SUBCUT HS 01/10/19 01/18/19 History U-100 Insulin] levothyroxine 50 mcg PO QAM 01/10/19 01/18/19 History loratadine 10 mg tablet 10 mg PO QAM #30 tab 01/16/19 01/18/19 Rx Patient History Medical History Acid reflux related Anxiety Depression Diabetes dx age 12; IDDM History of pre-eclampsia in prior , currently on ASA Hypothyroidism Morbid obesity Surgical History History of hand surgery (Resolved) left for trigger finger H/O section 12/09/2014 2/2 distress; "good pain control" with SAB perioperatively H/O sinus surgery 2006 H/O tooth extraction top 2 wisdom teeth-2010 History of gynecologic surgery CO2 laser ablation of vulvar lesion History of tonsillectomy as a child Family History Mother Anxiety Lung disease Myocardial infarction Heart disease Hypertension Hyperlipidemia Diabetes Father Anxiety Lung disease Myocardial infarction Heart disease Hypertension Multiple sclerosis Diabetes Grandmother (Maternal) Cancer Colorectal cancer Ovarian cancer Sister Diabetes Grandmother (Paternal) Transient ischemic attack (TIA) Social History Preferred Language: Burundian Communication Ability: Effective Visual Impairment: No Limitations Hearing Ability: Normal Can Sterilizer Required: No Beliefs That Will Affect Care: None marital status: Current Living Situation: Spouse Current Living Situation Comment: AND SON current occupational status: other current occupation: Homemaker Other Information That Helps Us Care for You: No Feels Safe at Home: Yes Smoking Status: Never smoker Do You Dip or Chew Tobacco: No ; Second Hand Exposure: Yes ; Hx Alcohol Use: No Hx Substance Use: No caffeine: Yes Dental Care, Regularly: Yes Physical Activity Frequency: Does not Exercise Seatbelt Use: always Review of Systems All systems reviewed & are unremarkable except as noted in HPI & below Physical Exam Constitutional: WD/WN, vitals as above Respiratory: normal respiratory effort, lungs clear to auscultation Cardiovascular: RRR, no murmur, no edema Extremities: + edema (trace pedal edema); no calf tenderness Gastrointestinal (Abdomen): normal bowel sounds, soft, nontender, no hepatosplenomegaly Inspection/Auscultation: + significant pannus and + abdominal surgical scar (low transverse scar well healed- pannus edematous) Psychiatric: A+Ox3, euthymic affect Genitourinary: OB Exam Abdomen: + fundal height (46 cm), + heart tones, + vertex and + estimated weight (9-10 pounds) OB Exam Monitor Tracing: + external FHT monitor used, + external uterine monitor used, + category I and + normal FHT variability cervix exam declined
[2019-01-19] MEDS ORDERED: LACTATED RINGER'S 1,000 ML IV SCH ×3 (05:30→18:00)
[2019-01-19] MEDS ORDERED: CITRIC ACID/SODIUM CITRATE 15 ML UDC PO SCH (06:00)
[2019-01-19] MEDS ORDERED: CEFAZOLIN 3000MG 65 ML IV SCH (06:00)
[2019-01-19 06:11] LABS: Basophils # (auto) 0.06 K/uL (0-0.2); Basophils % (auto) 0.7 %; Eosinophils # (auto) 0.09 K/uL (0-0.5); Eosinophils % (auto) 1.1 %; Hemoglobin 11.4 g/dL (12.0-16.0); Immature Granulocytes # (auto) 0.03 K/uL (0.00-0.02); Immature Granulocytes % (auto) 0.4 %; Lymphocytes # (auto) 2.92 K/uL (1.2-3.4); Lymphocytes % (auto) 34.7 %; Mean Corpuscular Volume 82.7 fL (80-100); Mean Platelet Volume 12.2 fL (7.4-10.4); Monocytes % (auto) 5.9 %; Neutrophils # (auto) 4.81 K/uL (1.4-6.5); Neutrophils % (auto) 57.2 %; Platelet Count 284 K/uL (130-400); RDW Coefficient of Variation 12.6 % (11.5-14.5); RDW Standard Deviation 37.7 fL (36.4-46.3); Red Blood Count 4.23 M/uL (4.2-5.4); White Blood Count 8.41 K/uL (4.8-10.8)
[2019-01-19 06:14] LABS: Mean Corpuscular Hgb Conc 32.6 g/dL (32-36)
[2019-01-19] MEDS ORDERED: fentaNYL citrate 100 MCG/2 ML VIAL ONE (07:31)
[2019-01-19] MEDS ORDERED: MoRPHine SULFATE PF 1 MG/ML 10 ML AMP/VIAL ONE (07:31)
--- NOTE | 2019-01-19 07:39 | History & Physical Bridge Note ---
Date of Service January 19, 2019 History & Physical Bridge Note I have examined the patient, reviewed the History & Physical and in the interval since the performance of the History & Physical I have noted the following changes of clinical significance: no changes noted
[2019-01-19] MEDS ORDERED: ONDANSETRON INJ 2 MG/ML 2 ML VIAL ONE (08:06)
[2019-01-19] MEDS ORDERED: OXYTOCIN 10 UNITS/ML VIAL ONE (08:06)
[2019-01-19] MEDS ORDERED: MoRPHine SULFATE PF 1 MG/ML 10 ML AMP/VIAL INT SPINAL ONE (08:55)
[2019-01-19] MEDS ORDERED: LACTATED RINGER'S 500 ML IV PRN (08:55)
[2019-01-19] MEDS ORDERED: NALOXONE HCL 1 MG in SODIUM CHLORIDE 0.9% 1000ML 1,000 ML IV PRN (08:55)
[2019-01-19] MEDS ORDERED: NALOXONE HCL 0.08 MG in SYRINGE 1.8 ML IV PRN (08:55)
[2019-01-19] MEDS ORDERED: HYDROmorphone INJ 0.5 MG/0.5 ML SYR IV PRN (08:55)
[2019-01-19] MEDS ORDERED: ONDANSETRON INJ 2 MG/ML 2 ML VIAL IV PRN (08:55)
[2019-01-19] MEDS ORDERED: ePHEDrine sulfate 50 MG/ML AMP IV PRN (08:55)
[2019-01-19] MEDS ORDERED: NALOXONE HCL 0.4 MG/1 ML VIAL/CARP IV PRN (08:55)
[2019-01-19] MEDS ORDERED: ACETAMINOPHEN 1000 MG/100 ML IV IV PRN (08:55)
[2019-01-19] MEDS ORDERED: DiphenhydrAMINE HCL 50 MG/ML VIAL IV PRN (08:55)
[2019-01-19] MEDS ORDERED: MAGNESIUM HYDROXIDE SUSP 30 ML UDC PO PRN (08:57)
[2019-01-19] MEDS ORDERED: SENNA 8.6 MG TAB PO PRN (08:57)
[2019-01-19] MEDS ORDERED: HYDROCORTISONE ACETATE 25 MG SUPP PR PRN (08:57)
[2019-01-19] MEDS ORDERED: DIPHTHERIA/TETANUS/PERTUSSIS 0.5 ML SYR/VIAL IM ONE (08:57)
[2019-01-19] MEDS ORDERED: SUPERCREAM 0.870% 15 GM JAR EXT PRN (08:57)
[2019-01-19] MEDS ORDERED: BENZOCAINE 20% AER SPR 82.5 GM CAN EXT PRN (08:57)
[2019-01-19] MEDS ORDERED: SODIUM CHLORIDE 0.9% 1000ML 1,000 ML IV SCH (09:00)
[2019-01-19] MEDS ORDERED: NO NARCOTICS OR SEDATIVES SCH (09:00)
[2019-01-19] MEDS ORDERED: DC INTRASPINAL MORPHINE SCH (09:00)
[2019-01-19] MEDS ORDERED: OXYTOCIN 20 UNITS in LACTATED RINGER'S 1,000 ML IV SCH (09:00)
[2019-01-19] MEDS ORDERED: DiphenhydrAMINE HCL 50 MG/ML VIAL ONE (09:03)
--- NOTE | 2019-01-19 09:12 | Post Operative Brief Note ---
PG Immediate Post Op with CF Date of Surgery January 19, 2019 Pre & Post Diagnosis Operation Date: 01/19/19 07:30 Pre-Op Diagnosis: History of Section Post-Op Diagnosis: History of Section; repeat low transverse section; delivery of live male child at 0824 Procedure Operation Date: 01/19/19 07:30 Actual Procedures p Section in LD - Nani Burns MD, FACOG Surgeon Nani Burns MD, FACOG Relay Worker Nafisa Carlos MD, Brenton cOhoa PGY-1 Estimated Blood Loss 750 Findings Consistent with Post-Op Diagnosis Drains Gonzáles Catheter (inserted after spinal with return of clear yellow urine)
[2019-01-19] MEDS: OXYTOCIN 20 UNITS in LACTATED RINGER'S 1,000 ML IV SCH ×2 (09:47→19:42)
[2019-01-19] MEDS: NALBUPHINE HCL INJ 10 MG/ML AMP IV PRN ×2 (10:10→11:30)
--- NOTE | 2019-01-19 11:45 | Anesthesiology Progress Note ---
Date of Service January 19, 2019 Anesthesia Post Procedure Vital Signs Vital Signs: Temp Pulse Pulse Resp BP Pulse Ox 01/19/19 11:24 77 97 01/19/19 11:19 72 97 01/19/19 11:18 75 160/91 H 01/19/19 11:14 69 97 01/19/19 11:09 66 96 01/19/19 11:04 67 97 01/19/19 10:59 71 95 01/19/19 10:57 84 92 01/19/19 10:54 72 97 01/19/19 10:49 65 151/96 H 96 01/19/19 10:44 63 96 01/19/19 10:39 73 97 01/19/19 10:34 81 87 L 01/19/19 10:29 66 96 01/19/19 10:24 72 97 01/19/19 10:19 61 95 01/19/19 10:15 65 132/92 01/19/19 10:14 63 96 01/19/19 10:11 70 94 01/19/19 10:09 64 96 01/19/19 10:06 70 168/73 H 01/19/19 10:04 80 97 01/19/19 09:59 72 97 01/19/19 09:55 72 149/96 H 01/19/19 09:54 70 96 01/19/19 09:49 72 97 01/19/19 09:45 70 135/92 01/19/19 09:44 77 96 01/19/19 09:39 81 96 01/19/19 09:35 71 134/75 01/19/19 09:34 72 96 01/19/19 09:31 66 92 01/19/19 09:29 65 96 01/19/19 09:25 67 133/71 01/19/19 09:24 68 95 01/19/19 09:19 72 96 01/19/19 09:15 67 133/77 01/19/19 09:14 36.1 C L 69 69 20 97 01/19/19 06:34 83 169/94 H 01/19/19 06:20 81 159/93 H 01/19/19 06:03 96 H 167/90 H 01/19/19 05:28 36.8 C 97 H 18 144/88 H Transfer of Care Handoff Completed per policy Notes Mental Status: alert / awake / arousable and participated in evaluation Nausea / Vomiting: adequately controlled Pain: adequately controlled Airway Patency, RR, SpO2: stable & adequate BP & HR: stable & adequate Hydration State: stable & adequate Neuraxial Anesthesia: was administered and sensory block is resolving Anesthetic Complications: no major complications apparent and Pt Satisfied with anesthetic care
--- NOTE | 2019-01-19 12:08 | Operative Report ---
DATE OF OPERATION: 01/19/2019 SURGEON: Nani Nobles MD. AVIATION NEUROPSYCHOLOGIST: Nafisa Carlos MD and Brenton Ochoa, PGY-1. PREOPERATIVE DIAGNOSES: Intrauterine at 37 weeks, history of gestational hypertension and poorly controlled insulin-dependent diabetes mellitus. POSTOPERATIVE DIAGNOSES: Intrauterine at 37 weeks, history of gestational hypertension and poorly controlled insulin-dependent diabetes mellitus. Delivery of a viable male infant, 10 pounds 5 ounces, Apgars 9 and 9. PROCEDURE: Repeat low transverse section. ESTIMATED BLOOD LOSS: 700 Ml. ANESTHESIA: Subarachnoid block. HISTORY: The patient is a 28-year-old 2, para 1-0-0-1 white female, EDC of 02/07/2019 who presented for repeat section at 37 weeks because of the diagnosis of gestational hypertension and poorly controlled diabetes mellitus. Diabetes mellitus predated this . She is now on insulin, but blood sugars are still poorly controlled, although the patient now states that her sugars are now consistently under 200. She is now presenting for repeat section. First section was done for nonreassuring heart rate pattern. She understands the risks of procedure and is willing to proceed. GROSS FINDINGS: Uterus is gravid and consistent with a term in size. Bilateral ovaries and fallopian tubes are grossly normal. There were some omental adhesions to the anterior abdominal wall, but otherwise there was minimal scar tissue present. DESCRIPTION OF PROCEDURE: After the patient received adequate subarachnoid block, she was prepped and draped in the usual sterile fashion. A low transverse skin incision was made through the scalpel and carried to the fascia with the same scalpel. The fascial incision was then extended with Samuel scissors. The rectus muscles were bluntly divided in the midline and the peritoneum was elevated and entered bluntly. The omental adhesions were taken down off the anterior abdominal wall. The rectus muscles were divided on the midline with Samuel scissors. The Stanley retractor was then placed in the abdomen. The bladder was taken down off the anterior surface of the uterus and placed behind the bladder blade. Lower uterine segment was entered with the scalpel and extended transversely. Clear fluid was obtained when membranes were ruptured. The was delivered from the vertex presentation with moderate fundal pressure, the rest of the infant was delivered through the incision. There was spontaneous crying. The was moving all 4 limbs upon delivery. The cord was then clamped and cut and the was handed off to Dr. Savanah Tian who was in attendance as permanent waver. The placenta was expressed intact with a 3-vessel cord. The uterine cavity was then explored and found to be free of any placental tissue or membranes. The uterus was then closed in 2 layers in a running locking imbricating fashion. Bleeding along the uterine incision site was controlled with the Bovie. The uterus was then gently placed back inside the abdominal cavity and the incision was examined once more and continued to have excellent hemostasis. Some clot was removed from the anterior cul-de-sac. Otherwise, there was no clot or fluid in the cul-de-sac or in the lateral gutters. The rectus muscles were then brought together in the midline with individual stitches of 0 Monocryl. The fascia was closed in a running fashion with 0 Vicryl. The Claire fascia was closed in a running fashion with 3-0 catgut. Skin edges were reapproximated with 4-0 Vicryl in a subcuticular manner after vigorously irrigating the adipose layer. Urine was clear at the end of the case. Mother and infant are doing well after delivery. I attest to the content of the Intraoperative Record and any orders documented therein. Any exception s are noted below.
[2019-01-19] MEDS: KETOROLAC 30 MG/ML VIAL IV PRN ×2 (12:53→19:43)
[2019-01-19] MEDS: SIMETHICONE 80 MG CHEW PO SCH ×3 (12:53→21:06)
[2019-01-19] MEDS ORDERED: DEXTROSE 50% 50 ML SYRINGE IV STA (15:54)
[2019-01-19] MEDS ORDERED: Nursing to Pharmacy Communication ONE (18:35)
[2019-01-19] MEDS ORDERED: DEXTROSE 50% 50 ML SYRINGE IV ONE (18:45)
[2019-01-19] MEDS: DOCUSATE SODIUM 100 MG CAP PO SCH (21:06)
[2019-01-20] MEDS ORDERED: ONDANSETRON INJ 2 MG/ML 2 ML VIAL IV PRN (02:55)
[2019-01-20] MEDS ORDERED: PROMETHAZINE HCL 25 MG in SODIUM CHLORIDE 0.9% 50 ML IV PRN (02:55)
[2019-01-20] MEDS ORDERED: DiphenhydrAMINE HCL 50 MG/ML VIAL IV PRN (02:55)
[2019-01-20] MEDS ORDERED: KETOROLAC 30 MG/ML VIAL IV PRN (02:55)
[2019-01-20] MEDS ORDERED: MEPERIDINE HCL 50 MG/ML CARP IV PRN (02:55)
[2019-01-20] MEDS: OXYCODONE/ACETAMINOPHEN 5mg/325mg TAB PO PRN (03:11)
[2019-01-20] MEDS: GLUCOSE 10 TABS/TUBE PO PRN ×2 (03:18→06:29)
--- NOTE | 2019-01-20 06:34 | Obstetrical Progress Note ---
Date of Service January 20, 2019 Assessment & Plan (1) : 28 yo s/p C/S @ 37w3d, w/ gHTN, IDDM gHTN - Blood pressure 152/98 today - continue to monitor while inpatient IDDM - poorly controlled - some low glucose to the 50's today - not currently getting insulin POD# 1 - GBS positive, Blood Type A+ - Feels well today. Eating well, voiding well, ambulating well. - Pain well controlled. - Routine postoperative care - After discharge will have [address] Max Nobles. Supervising Physician Co-Signing Physician Notes Resident Physician Supervision Note: I interviewed and examined the patient. Discussed with Dr. Ochoa and agree with findings and plan as documented in the note. Any exceptions or clarifications are listed here: [None] Documented By: Nani Burns MD, FACOG Subjective Doing well this morning. Reports some itching that occurred after delivery. She did not want to use Benadryl due to a concern for her breast milk not coming in. is going okay now. Pain is well controlled. Review of Systems Review of Systems: Denies fever, chills, sweats Denies shortness of breath, difficulty breathing, chest pain, palpitations, chest pressure. Denies breast pain. Denies dysuria. Denies headache. Physical Exam Physical Exam: General: Alert, oriented. No acute distress. Cardiac: Regular rate and rhythm, no murmurs/rubs/gallops. Respiratory: Clear to auscultation anterior and posteriorly, no wheezes/rales/rhonchi. No increased work of breathing. Symmetrical chest rise. No respiratory distress. Abdomen: Soft, nontender, nondistended. Bowel sounds present. Uterus: Uterine fundus firm, palpable 1 cm below umbilicus. Lower Extremities: No lower extremity edema or swelling. No deep calf pain. Angeli's negative bilaterally. Results & Data Vital Signs (Past 12 Hours) Vital Signs Temp Pulse Resp BP Pulse Ox 01/20/19 03:00 36.8 C 86 18 152/98 H 96 01/20/19 02:27 16 95 01/20/19 01:36 16 95 01/19/19 23:00 37.2 C 95 H 18 156/96 H 96 01/19/19 22:01 18 95 01/19/19 21:00 16 95 01/19/19 20:10 16 97 01/19/19 19:30 36.5 C 87 16 151/82 H 100 PG Care Time/CCT Total # of Minutes Spent Total Time Spent with Patient: Total time spent is greater than 50% in coordinat ion of care (as documented) at patient's floor/unit and/or counseling patient: Resident Activity Tracking Resident Involvement: Resident Care Provided Care Provided: Adult Hospital Medicine
[2019-01-20] MEDS: LEVOTHYROXINE SODIUM 50 MCG TABLET PO SCH (06:35)
[2019-01-20 06:42] LABS: Basophils # (auto) 0.04 K/uL (0-0.2); Basophils % (auto) 0.4 %; Eosinophils # (auto) 0.13 K/uL (0-0.5); Eosinophils % (auto) 1.4 %; Hematocrit (blood only) 36.8 % (37-47); Hemoglobin 12.1 g/dL (12.0-16.0); Immature Granulocytes # (auto) 0.01 K/uL (0.00-0.02); Immature Granulocytes % (auto) 0.1 %; Lymphocytes # (auto) 1.82 K/uL (1.2-3.4); Lymphocytes % (auto) 19.2 %; Mean Corpuscular Hemoglobin 27.5 pg (25-34); Mean Corpuscular Hgb Conc 32.9 g/dL (32-36); Mean Corpuscular Volume 83.6 fL (80-100); Monocytes # (auto) 0.59 K/uL (0.11-0.59); Monocytes % (auto) 6.2 %; Neutrophils # (auto) 6.87 K/uL (1.4-6.5); Neutrophils % (auto) 72.7 %; Platelet Count 254 K/uL (130-400); RDW Coefficient of Variation 12.8 % (11.5-14.5); RDW Standard Deviation 38.6 fL (36.4-46.3); White Blood Count 9.46 K/uL (4.8-10.8)
[2019-01-20] MEDS: DOCUSATE SODIUM 100 MG CAP PO SCH ×2 (08:18→21:48)
[2019-01-20] MEDS: PRENATAL VITAMIN 1 TAB PO SCH (08:18)
[2019-01-20] MEDS: SIMETHICONE 80 MG CHEW PO SCH ×4 (08:18→22:38)
[2019-01-20] MEDS: FERROUS SULFATE 325 MG TAB PO SCH (08:18)
--- NOTE | 2019-01-20 11:00 | Anesthesiology Progress Note ---
Date of Service January 20, 2019 Anesthesia Post Procedure Vital Signs Vital Signs: Temp Pulse Pulse Resp BP BP Pulse Ox 01/20/19 08:00 98.8 F 86 16 145/86 H 97 01/20/19 03:00 98.2 F 86 18 152/98 H 96 01/20/19 02:27 16 95 01/20/19 01:36 16 95 01/19/19 23:00 99.0 F 95 H 18 156/96 H 96 01/19/19 22:01 18 95 01/19/19 21:00 16 95 01/19/19 20:10 16 97 01/19/19 19:30 97.7 F 87 16 151/82 H 100 01/19/19 18:00 21 96 01/19/19 17:00 19 97 01/19/19 16:00 19 95 01/19/19 15:15 97.7 F 87 20 133/84 94 01/19/19 14:00 18 95 01/19/19 13:00 16 95 01/19/19 12:00 97.3 F L 75 18 142/97 H 95 01/19/19 11:24 77 97 01/19/19 11:19 72 97 01/19/19 11:18 75 160/91 H 01/19/19 11:14 69 97 01/19/19 11:09 66 96 01/19/19 11:04 67 97 Pulse Ox 01/20/19 08:00 01/20/19 03:00 01/20/19 02:27 01/20/19 01:36 01/19/19 23:00 01/19/19 22:01 01/19/19 21:00 01/19/19 20:10 01/19/19 19:30 01/19/19 18:00 01/19/19 17:00 01/19/19 16:00 01/19/19 15:15 94 01/19/19 14:00 01/19/19 13:00 01/19/19 12:00 01/19/19 11:24 01/19/19 11:19 01/19/19 11:18 01/19/19 11:14 01/19/19 11:09 01/19/19 11:04 Transfer of Care Handoff Completed per policy Notes Mental Status: alert / awake / arousable and participated in evaluation Nausea / Vomiting: adequately controlled Pain: adequately controlled Airway Patency, RR, SpO2: stable & adequate BP & HR: stable & adequate Hydration State: stable & adequate Neuraxial Anesthesia: was administered and sensory block resolved Anesthetic Complications: no major complications apparent and Pt Satisfied with anesthetic care
[2019-01-20] MEDS: IBUPROFEN 600 MG TAB PO PRN ×2 (15:37→21:48)
[2019-01-20] MEDS ORDERED: bisacodyL 5 MG TABEC PO SCH (20:00)
[2019-01-20] MEDS ORDERED: PHARMACY GLYCEMIC MGMT CONSULT PRN (20:45)
[2019-01-20] MEDS ORDERED: GLUCAGON FOR INJ 1 MG VIAL IM PRN (21:00)
[2019-01-20] MEDS ORDERED: DEXTROSE 50% 50 ML SYRINGE IV PRN (21:00)
[2019-01-20] MEDS ORDERED: GLUCOSE 10 TABS/TUBE PO PRN (21:00)
[2019-01-20] MEDS ORDERED: INSULIN GLARGINE SOLOSTAR 100 UNITS/ML 3 ML PEN SC ONE (21:00)
[2019-01-20] MEDS ORDERED: GLUCOSE 40% GEL 15 GM TUBE PO PRN (21:00)
[2019-01-20] MEDS ORDERED: CARBOHYDRATES FOR HYPOGLYCEMIA PO PRN (21:00)
[2019-01-20] MEDS: INSULIN ASPART 100 UNITS/ML 3 ML PEN SC SCH (22:38)
[2019-01-21] MEDS: INSULIN ASPART 100 UNITS/ML 3 ML PEN SC SCH ×7 (00:30→20:54)
[2019-01-21] MEDS: IBUPROFEN 600 MG TAB PO PRN ×5 (04:39→23:23)
[2019-01-21] MEDS: OXYCODONE/ACETAMINOPHEN 5mg/325mg TAB PO PRN ×5 (04:40→23:23)
[2019-01-21 06:31] LABS: Hematocrit (blood only) 33.1 % (37-47); Hemoglobin 10.7 g/dL (12.0-16.0)
[2019-01-21] MEDS: LEVOTHYROXINE SODIUM 50 MCG TABLET PO SCH (07:08)
[2019-01-21] MEDS: SIMETHICONE 80 MG CHEW PO SCH ×4 (07:49→20:54)
[2019-01-21] MEDS: FERROUS SULFATE 325 MG TAB PO SCH (07:49)
[2019-01-21] MEDS: PRENATAL VITAMIN 1 TAB PO SCH (07:49)
[2019-01-21] MEDS: DOCUSATE SODIUM 100 MG CAP PO SCH ×2 (07:50→20:54)
--- NOTE | 2019-01-21 08:23 | Obstetrical Progress Note ---
Date of Service January 21, 2019 Assessment & Plan (1) Gestational hypertension: (2) Diabetes mellitus affecting : (3) Delivery by section: (4) Depression, : reviewed mood with pt, will try to look up in allscripts record what was given to her by pcp. will need 2wk pp check for mood, given bps, will need at least that for bps. routine pp care. she is breast pumping. she is enc to move, will consider d/c REUBEN dressing before d/c as not draining anything. pain control adeq. pharmacy helping with her insulin dosing, plan was to get her to 2pm appt with endo tomorrow. will see if that can work out. pt with known poor control. will monitor mood through today. offered support for her concerns. Day #:: 2 Subjective Ambulation: ambulating normally Voiding: no voiding problems Passing Gas:: Yes Diet Tolerance:: regular diet Lochia:: Small Feeding Type:: breast feeding no pain issues. tearful this am as concerned baby may have issue with aorta and [facility] [place] this happened with her first baby and was stressful. has h/o depression and asking to restart med used about a year ago given by PCP--thinks it was buspar. no hi or si. Physical Exam Constitutional WD/WN, vitals as above Respiratory normal respiratory effort, lungs clear to auscultation Cardiovascular Rate/Rhythm: regular rate and regular rhythm Gastrointestinal (Abdomen) Inspection/Auscultation: abdomen normal to inspection and + abdominal surgical incision (with REUBEN dressing, no new drainage for 2 days) Percussion/Palpation: abdomen soft (obese); abdomen nontender fundus firm 2 cm below umbilicus Musculoskeletal nt calves tr edema Neurologic grossly normal Psychiatric Orientation: alert and oriented x 3 Eye Contact: good eye contact Speech: normal rate/rhythm/volume of speech Affect: + tearful affect Mood: + depressed mood Suicidal Thoughts: denies suicidal thoughts Homicidal Thoughts: denies homicidal thoughts Results & Data Vital Signs (Past 12 Hours) Vital Signs Temp Pulse Resp BP Pulse Ox 01/21/19 07:25 97.5 F L 79 18 144/89 H 97 01/20/19 23:55 97.9 F 85 18 144/86 H 01/20/19 21:45 98.1 F 92 H 18 147/98 H 97
[2019-01-21] MEDS ORDERED: bisacodyL 10 MG SUPP PR PRN (08:57)
--- NOTE | 2019-01-21 13:51 | Pharmacy Report ---
Glycemic Control Consultation - Date of Service January 21, 2019 - Scope Scope: Glycemic Pharmacist consulted by Dr Victor on 01/20 for glycemic control and to write orders per [facility] inpatient glycemic control protocol - Objective Weight: 130.635 kg Accuchecks BSG (last 24hrs): 01/20/19 01/20/19 01/21/19 17:07 20:30 00:04 POC Glucose 177 H 249 H 141 H 01/21/19 01/21/19 01/21/19 04:02 04:04 04:33 POC Glucose 54 L* 50 L* 83 01/21/19 07:55 POC Glucose 99 - Recent Pertinent Medications Outpatient Anti-diabetic Regimen: * Basaglar 40 qAM and 50 qPM (note: she thinks this is dosing/likely noncompliance), Admelog/lispro 75 units per sliding scale at meal time * A1c = [] % [date] Risk Factors for Insulin Resistance: * Recent Surgery: s/p C section * Diet: T2DM - Assessment & Plan Assessment & Plan: ASSESSMENT: * 28 year old now s/p C section on 01/19. PMHx significant for gHTN, type 2 diabetes. * Pharmacy consulted for high BSG of 249 mg/dL last evening. Of note, patient's BSGs have been low since admission. Outpatient dose likely too much had taken doses prior to admission on 01/18 pm. * During hospital stay did not require any insulin on 01/19 * 01/20 BSGs starting to rise - novolog scale added for HS on 01/20 pm and also ordered 20 units of Lantus * BSG this AM low at 54 mg/dL, continue to be lower at lunch 77 mg/dL - will loosen CR. Do not feel patient needs any more Lantus for today, will need to reassess tomorrow PLAN FOR INPATIENT GLYCEMIC CONTROL: * Basal insulin * Lantus- reassess 10/14 AM * Bolus insulin * NovoLog per scale ACHS or Q6hrs while NPO * Goal Range: Low 110 mg/dL - High 140 mg/dL * Correction Factor: 20 mg/dL/unit * Nutritional / Prandial insulin per carb ratio of 1 unit per 8 grams CHO consumed PLAN FOR DISCHARGE: * Feel that patient likely noncompliant, would recommend a dose decrease on discharge to help avoid hypoglycemia * Please note that the plan above was derived based on current level of insulin resistance and hospital stress. These recommendations are appropriate for inpatient admission only. Plan of care upon discharge will need to be reassessed to avoid potential outpatient hypo/hyperglycemia. Thank you.
--- NOTE | 2019-01-22 05:28 | Obstetrical Progress Note ---
Date of Service January 22, 2019 Assessment & Plan (1) : 28 yo s/p C/S @ 37w3d, w/ gHTN, IDDM gHTN - Blood pressure 154/98 today - continue to monitor while inpatient PP Depression - Started on Buspirone - Patient states mood improved - given warning signs - close follow up with PCP IDDM - poorly controlled - ISS while inpatient POD# 3 - GBS positive, Blood Type A+ - Feels well today. Eating well, voiding well, ambulating well. - Pain well controlled. - Routine postoperative care - After discharge will have [address] Burns. Supervising Physician Co-Signing Physician Notes Resident Physician Supervision Note: I was present with Dr. Dinero during the history and exam. I discussed the case with the resident and agree with the findings and plan as documented in the note. Any exceptions or clarifications are listed here: doing better today mood heredia, wants to stick with the buspar and have told her to see PCP in next 2wks- 4wks for this medicine management. Looks like her bps are high, will start labetalol bid and will need office apt with us in one wk from d/c. baby not ready to go home and pt will stay in house. she will miss planned apt with endo today for her dm. she will call them and rearrange. pharm helping with her glycemic control which is improved. REUBEN dressing removed, incision c/d/i, obese abdomen, ff 2 down. nt calves. routine care today. discussed above with her nurse as well. Documented By: Nelia Victor MD, FACOG Subjective Doing well this morning. Her son will not need to be transferred to [facility]. She describes her mood as better. She was having some 5/10 pain in her right lower quadrant that she describes as muscular in nature and started yesterday. She has been getting up on the right side of the bed and attributes the pain to this. Review of Systems Review of Systems: Denies fever, chills, sweats Denies shortness of breath, difficulty breathing, chest pain, palpitations, chest pressure. Denies breast pain. Denies dysuria. Denies headache. Physical Exam Physical Exam: General: Alert, oriented. No acute distress. Cardiac: Regular rate and rhythm, no murmurs/rubs/gallops. Respiratory: Clear to auscultation anterior and posteriorly, no wheezes/rales/rhonchi. No increased work of breathing. Symmetrical chest rise. No respiratory distress. Abdomen: Soft, nontender, nondistended. Bowel sounds present. Uterus: Uterine fundus firm, palpable 1 cm below umbilicus. Lower Extremities: No lower extremity edema or swelling. No deep calf pain. Angeli's negative bilaterally. surgical incision: intact, clean, dry. No warmth, erythema, discharge. Results & Data Vital Signs (Past 12 Hours) Vital Signs Temp Pulse Resp BP Pulse Ox 01/21/19 23:20 36.7 C 82 16 154/98 H 99 01/21/19 20:45 36.6 C 89 16 150/90 H 96 PG Care Time/CCT Total # of Minutes Spent Total Time Spent with Patient: Total time spent is greater than 50% in coordination of care (as documented) at patient's floor/unit and/or counseling patient: Resident Activity Tracking Resident Involvement: Resident Care Provided Care Provided: Adult Hospital Medicine
[2019-01-22] MEDS: LEVOTHYROXINE SODIUM 50 MCG TABLET PO SCH (06:40)
[2019-01-22] MEDS: IBUPROFEN 600 MG TAB PO PRN ×4 (06:41→23:14)
[2019-01-22] MEDS: OXYCODONE/ACETAMINOPHEN 5mg/325mg TAB PO PRN ×4 (06:42→23:15)
--- NOTE | 2019-01-22 08:18 | Pharmacy Report ---
Pharmacy Glycemic Short Note 2 - Date of Service January 22, 2019 - Glycemic Short BSG Results (Last 24 hours): 01/21/19 01/21/19 16:31 20:52 POC Glucose 93 175 H OUTPATIENT ANTIDIABETIC REGIMEN: non-compliance noted w/ outpatient regimen * Basaglar 40 units in AM, 50 units in PM * Admelog 75 units ?? with meals + SS * Pre- regimen: * Basaglar 50 units BID (misses doses 50% of the time) * Apidra 10 units with meals (up to 20 units with breakfast) ASSESSMENT: 01/22 * Patient is a type 2 diabetic (confirmed from outpatient records), diagnosed at the age of 12 and follows with [facility] Endocrinology * She has a history of non-compliance with her outpatient doses and heavy CHO consumption as an outpatient * Her pre- insulin regimen is noted above, which was obtained from [employer] * She is POD 3 s/p , and insulin requirements continue to remain low in the period. At about 24-48 hours , the effects of on glucose and insulin tend to subside and insulin therapy can be resumed/increased. 20 units of Lantus ordered 01/20 PM caused hypoglycemia but now BSGs are slowly increasing without basal on board. * Fasting BSG = 139 mg/dL; will resume Lantus at 1/2 the previous dose given. Note that this is still significantly less than pre- outpatient regimen. Will provide an additional order for PM Lantus if her BSGs increase to > 180 mg/dL by this evening. * Postprandial BSGs started to increase once Lantus wore off yesterday so will tighten Novolog parameters to insulin calculator estimates using wt/stress level of 2 01/21 * 28 year old now s/p C section on 01/19. PMHx significant for gHTN, type 2 diabetes. * Pharmacy consulted for high BSG of 249 mg/dL last evening. Of note, patient's BSGs have been low since admission. Outpatient dose likely too much had taken doses prior to admission on 01/18 pm. * During hospital stay did not require any insulin on 01/19 * 01/20 BSGs starting to rise - novolog scale added for HS on 01/20 pm and also ordered 20 units of Lantus * BSG this AM low at 54 mg/dL, continue to be lower at lunch 77 mg/dL - will loosen CR. Do not feel patient needs any more Lantus for today, will need to reassess tomorrow PLAN FOR INPATIENT GLYCEMIC CONTROL: * Basal insulin - resume at 1/2 of previous dose this AM, further dosing tonight if BSGs are > 180 mg/dL * Lantus 10 units this AM, then * Lantus BID per the following scale: * Hold for BSG < 180 * 10 units for BSG 180 or above * Bolus insulin - tighten CR and add 02 check * NovoLog per scale ACHS or Q6hrs while NPO * Goal Range: Low 110 mg/dL - High 140 mg/dL * Correction Factor: 20 mg/dL/unit * Nutritional / Prandial insulin per carb ratio of 1 unit per 6 grams CHO consumed PLAN FOR DISCHARGE: * Recommend to resume pre- regimen on discharge, with close f/u with outpatient endo * It was noted that she missed her endo appt so this will need rescheduled
[2019-01-22] MEDS: PRENATAL VITAMIN 1 TAB PO SCH (08:33)
[2019-01-22] MEDS: DOCUSATE SODIUM 100 MG CAP PO SCH ×2 (08:34→21:03)
[2019-01-22] MEDS: FERROUS SULFATE 325 MG TAB PO SCH (08:34)
[2019-01-22] MEDS: SIMETHICONE 80 MG CHEW PO SCH ×4 (08:34→21:03)
[2019-01-22] MEDS: INSULIN ASPART 100 UNITS/ML 3 ML PEN SC SCH ×4 (08:45→21:01)
[2019-01-22] MEDS ORDERED: LABETALOL HCL 100 MG TAB PO SCH (09:00)
[2019-01-22] MEDS ORDERED: INSULIN GLARGINE SOLOSTAR 100 UNITS/ML 3 ML PEN SC SCH ×2 (09:15→21:00)
[2019-01-22] MEDS: LABETALOL HCL 100 MG TAB PO SCH (19:41)
[2019-01-22 20:20] LABS: Basophils # (auto) 0.06 K/uL (0-0.2); Basophils % (auto) 0.6 %; Eosinophils # (auto) 0.27 K/uL (0-0.5); Eosinophils % (auto) 2.8 %; Hematocrit (blood only) 35.5 % (37-47); Hemoglobin 11.5 g/dL (12.0-16.0); Immature Granulocytes # (auto) 0.02 K/uL (0.00-0.02); Immature Granulocytes % (auto) 0.2 %; Lymphocytes # (auto) 2.78 K/uL (1.2-3.4); Lymphocytes % (auto) 28.9 %; Mean Corpuscular Hemoglobin 27.3 pg (25-34); Mean Corpuscular Hgb Conc 32.4 g/dL (32-36); Mean Corpuscular Volume 84.1 fL (80-100); Mean Platelet Volume 11.2 fL (7.4-10.4); Monocytes # (auto) 0.61 K/uL (0.11-0.59); Monocytes % (auto) 6.3 %; Neutrophils # (auto) 5.89 K/uL (1.4-6.5); Neutrophils % (auto) 61.2 %; Platelet Count 342 K/uL (130-400); RDW Standard Deviation 39.6 fL (36.4-46.3); Red Blood Count 4.22 M/uL (4.2-5.4); White Blood Count 9.63 K/uL (4.8-10.8)
[2019-01-22 20:42] LABS: Albumin Level 2.2 gm/dl (3.4-5.0); BUN Creatinine Ratio 21.9 (10-20); Calcium 9.2 mg/dl (8.5-10.1); Creatinine Clr Calc Pharmacy 112.2 ml/min; Est GFR (African American) 87.3; Est GFR (Non-African American) 75.3; Potassium 4.4 mmol/L (3.5-5.1)
[2019-01-22 20:45] LABS: Albumin Globulin Ratio 0.4 (0.9-2); Bilirubin,Total 0.2 mg/dl (0.2-1); Total Protein 7.2 gm/dl (6.4-8.2)
[2019-01-23] MEDS ORDERED: INSULIN ASPART 100 UNITS/ML 3 ML PEN SC ONE (02:00)
--- NOTE | 2019-01-23 06:04 | Obstetrical Progress Note ---
Date of Service January 23, 2019 Assessment & Plan (1) : 28 yo s/p C/S @ 37w3d, w/ gHTN, IDDM gHTN - Blood pressure 138/82 today - Labetalol BID - follow up appointment with PCP in 2-4 weeks PP Depression - Started on Buspirone - Patient states mood improved - given warning signs, online resources provided - close follow up with PCP and OB IDDM - poorly controlled - ISS while inpatient, pharmacy onboard - rescheduled Endocrine appointment for the 24th - patient in communication with Endocrinology for outpatient insulin management POD# 4 - GBS positive, Blood Type A+ - Feels well today. Eating well, voiding well, ambulating well. - Pain well controlled. - Routine postoperative care - After discharge will have [address] Burns. Supervising Physician Co-Signing Physician Notes Resident Physician Supervision Note: I was present with Dr. Ochoa during the history and exam. I discussed the case with the resident and agree with the findings and plan as documented in the note. Any exceptions or clarifications are listed here: POD#4. Discharge today. In addition to plans as above, patient noted a boil on left labia majora. Rx keflex given. Will need to recheck in office when she presents later this week for BP check. Documented By: Jihan Wilkins, DO Subjective Doing well this morning. Her son will not need to be transferred to [facility] [place]. She describes her mood as better. Her pain is improved. No questions or concerns today. Review of Systems Review of Systems: Denies fever, chills, sweats Denies shortness of breath, difficulty breathing, chest pain, palpitations, chest pressure. Denies breast pain. Denies dysuria. Denies headache. Physical Exam Physical Exam: General: Alert, oriented. No acute distress. Cardiac: Regular rate and rhythm, no murmurs/rubs/gallops. Respiratory: Clear to auscultation anterior and posteriorly, no wheezes/rales/rhonchi. No increased work of breathing. Symmetrical chest rise. No respiratory distress. Abdomen: Soft, nontender, nondistended. Bowel sounds present. Uterus: Uterine fundus firm, palpable 2 cm below umbilicus. Lower Extremities: No lower extremity edema or swelling. No deep calf pain. Angeli's negative bilaterally. surgical incision intact, clean, dry. No warmth, erythema, discharge, or dehiscence. Results & Data Vital Signs (Past 12 Hours) Vital Signs Temp Pulse Resp BP BP Pulse Ox 01/22/19 23:30 36.5 C 89 18 138/82 97 01/22/19 19:05 37 C 84 20 162/89 H 163/95 H 95 PG Care Time/CCT Total # of Minutes Spent Total Time Spent with Patient: Total time spent is greater than 50% in coordination of care (as documented) at patient's floor/unit and/or counseling patient: Resident Activity Tracking Resident Involvement: Resident Care Provided Care Provided: OB Delivery
[2019-01-23] MEDS: LEVOTHYROXINE SODIUM 50 MCG TABLET PO SCH (06:14)
[2019-01-23] MEDS: IBUPROFEN 600 MG TAB PO PRN ×2 (06:16→12:44)
[2019-01-23] MEDS: OXYCODONE/ACETAMINOPHEN 5mg/325mg TAB PO PRN ×2 (06:16→12:43)
[2019-01-23] MEDS: DOCUSATE SODIUM 100 MG CAP PO SCH (08:29)
[2019-01-23] MEDS: PRENATAL VITAMIN 1 TAB PO SCH (08:30)
[2019-01-23] MEDS: SIMETHICONE 80 MG CHEW PO SCH ×2 (08:30→13:12)
[2019-01-23] MEDS: FERROUS SULFATE 325 MG TAB PO SCH (08:30)
[2019-01-23] MEDS: LABETALOL HCL 100 MG TAB PO SCH (08:59)
[2019-01-23] MEDS: INSULIN ASPART 100 UNITS/ML 3 ML PEN SC SCH ×2 (09:40→13:06)
--- NOTE | 2019-01-23 11:14 | Pharmacy Report ---
Pharmacy Glycemic Short Note 2 - Date of Service January 23, 2019 - Glycemic Short BSG Results (Last 24 hours): 01/22/19 01/22/19 01/22/19 08:01 11:36 17:13 Glucose POC Glucose 139 H 173 H 116 H 01/22/19 01/22/19 01/23/19 20:10 20:49 01:53 Glucose 113 H POC Glucose 109 H 141 H 01/23/19 07:43 Glucose POC Glucose 153 H OUTPATIENT ANTIDIABETIC REGIMEN: non-compliance noted w/ outpatient regimen before * Basaglar 40 units in AM, 50 units in PM * Admelog 70 units with meals + SS * Pre- regimen: * Basaglar 50 units BID (misses doses 50% of the time) * Apidra 10 units with meals (up to 20 units with breakfast) ASSESSMENT: 01/23 * Rayna continues to require minimal insulin but needs are slowly increasing * Her total daily dose on 01/21 was 43 units (including 20 units of Lantus given the evening prior). Her total daily dose was 41 units on 01/22. * I spoke to her at length this AM regarding her outpatient requirements. She reports being VERY noncompliant prior to (sometimes only taking basal doses 3x/week), also had a large amount of soda consumption. During , she improved significantly in her compliance with insulin doses and diet. She also started on a CGM a few months ago and this has helped her BSG control. Will plan to discharge her on a conservative regimen since her current needs are reduced secondary to being and . In addition, her glycemic control is significantly improved compared to prepartum control due to changes noted. She does not count carbs but is comfortable with using a sliding scale in addition to her meal doses. I explained to her that her discharge regimen may need to be titrated up over time and use of her CGM will aid in this. CDE also spoke with her and provided additional instructions. She will f/u with CDE upon discharge. 01/22 * Patient is a type 2 diabetic (confirmed from outpatient records), diagnosed at the age of 12 and follows with [facility] [place] [facility] * She has a history of non-compliance with her outpatient doses and heavy CHO consumption as an outpatient * Her pre- insulin regimen is noted above, which was obtained from [employer] * She is POD 3 s/p , and insulin requirements continue to remain low in the period. At about 24-48 hours , the effects of on glucose and insulin tend to subside and insulin therapy can be resumed/increased. 20 units of Lantus ordered 01/20 PM caused hypoglycemia but now BSGs are slowly increasing without basal on board. * Fasting BSG = 139 mg/dL; will resume Lantus at 1/2 the previous dose given. Note that this is still significantly less than pre- outpatient regimen. Will provide an additional order for PM Lantus if her BSGs increase to > 180 mg/dL by this evening. * Postprandial BSGs started to increase once Lantus wore off yesterday so will tighten Novolog parameters to insulin calculator estimates using wt/stress level of 2 01/21 * 28 year old now s/p C section on 01/19. PMHx significant for gHTN, type 2 diabetes. * Pharmacy consulted for high BSG of 249 mg/dL last evening. Of note, patient's BSGs have been low since admission. Outpatient dose likely too much had taken doses prior to admission on 01/18 pm. * During hospital stay did not require any insulin on 01/19 * 01/20 BSGs starting to rise - novolog scale added for HS on 01/20 pm and also ordered 20 units of Lantus * BSG this AM low at 54 mg/dL, continue to be lower at lunch 77 mg/dL - will loosen CR. Do not feel patient needs any more Lantus for today, will need to reassess tomorrow PLAN FOR INPATIENT GLYCEMIC CONTROL: * Basal insulin - increase * Lantus 20 units qAM * Bolus insulin - loosen * NovoLog per scale ACHS or Q6hrs while NPO * Goal Range: Low 110 mg/dL - High 140 mg/dL * Correction Factor: 25 mg/dL/unit * Nutritional / Prandial insulin per carb ratio of 1 unit per 10 grams CHO consumed PLAN FOR DISCHARGE: Basaglar 30 units once daily Admelog 10 units with each meal plus sliding scale Blood Sugar 70-150 administer 0 units Blood Sugar 151-200 administer 2 units Blood Sugar 201-250 administer 4 units Blood Sugar 251-300 administer 6 units Blood Sugar 301-350 administer 8 units Blood Sugar 351-400 administer 10 units Blood Sugar >400 administer 12 units and call MD Resume CGM on discharge for close monitoring of BSG. Patient to f/u with outpatient endo on 02/01, sooner if CDE able to make appt.
[2019-01-23] MEDS ORDERED: INSULIN GLARGINE SOLOSTAR 100 UNITS/ML 3 ML PEN SC SCH (11:15)
--- NOTE | 2019-01-23 22:32 | Discharge Summary ---
PRINCIPAL DIAGNOSES: Intrauterine at 37 weeks, history of gestational hypertension, and poorly controlled insulin-dependent diabetes. PRINCIPAL PROCEDURE: Repeat low transverse section. HISTORY AND HOSPITAL COURSE: The patient is a 28-year-old 2, para 1-0-0-1 white female who presented at 37 weeks because of the diagnosis of gestational hypertension and poorly controlled diabetes, for repeat section. This was done without complications with delivery of a viable male , 10 pounds 5 ounces. Initially her postoperative course was uncomplicated. Her blood sugars remained very low in the 50s, which was symptomatic for her. She was given D50 IV as well as oral glucose. Her sugars now on day 3 had begun to climb and she is being followed by endocrine for management of her blood sugars. Also during this admission, her blood pressures also began to increase and she was begun on labetalol 100 mg b.i.d. initially and then this was increased to 200 mg b.i.d. She remained afebrile throughout her hospital course. Platelet count was 342,000 on the most recent CBC. Hemoglobin on admission was 11.4, first postop day hemoglobin 12.1, second postop day hemoglobin 10.7, and then third postop day hemoglobin 11.5, hematocrit 35.5. Her PIH labs were within normal limits. She had a REUBEN dressing placed at the time of her surgery. This was removed on her third postop day. There was minimal drainage on the dressing and it was felt that it could be removed as there was no significant drainage from the incision. She also was developing symptoms of depression and anxiety. She had been on BuSpar prior to being . The patient still had a prescription of the BuSpar and this was restarted during her hospital stay, which has apparently been effective in controlling her depression and anxiety at this point. She is able to ambulate without difficulty, voiding without any issues. She was eating regular diet by her first postop day. She did have vomiting and nausea on the evening of her surgery. She is being sent home in good condition with prescriptions for her BuSpar, the labetalol 200 mg b.i.d., and insulin per endocrine. She is going to be seen in the office in a week for assessment of her incision as well as a blood pressure check. She is to call for temperature of 101 degrees or higher, heavy vaginal bleeding, burning with urination, increased redness, drainage, or pain in her incision, symptoms of PIH which include visual changes with headache, epigastric pain, sudden increase in facial swelling or peripheral swelling, or any other concerns. [id number]
== END 2019-01-23 13:54 | disposition home or self-care (01) | DRG 786 ==
LOC: 4S1 05:12 → EDSTATUS 08:50 → 4N 12:04 → 4S2 01-20 18:48

== ENCOUNTER 2019-09-16 23:17 | Observation (INO) ==
[2019-09-16] MEDS ORDERED: FAMOTIDINE 20MG IV PUSH 20 MG/5 ML SYR IV STA (23:34)
[2019-09-16] MEDS ORDERED: KETOROLAC 30 MG/ML VIAL IV STA (23:34)
[2019-09-16] MEDS ORDERED: ONDANSETRON INJ 2 MG/ML 2 ML VIAL IV STA (23:34)
[2019-09-16] MEDS ORDERED: SODIUM CHLORIDE 0.9% 1000ML 1,000 ML IV SCH (23:45)
[2019-09-17 00:14] LABS: Basophils # (auto) 0.07 K/uL (0-0.2); Basophils % (auto) 0.6 %; Eosinophils # (auto) 0.17 K/uL (0-0.5); Eosinophils % (auto) 1.3 %; Hematocrit (blood only) 42.6 % (37-47); Hemoglobin 14.3 g/dL (12.0-16.0); Immature Granulocytes # (auto) 0.04 K/uL (0.00-0.02); Immature Granulocytes % (auto) 0.3 %; Lymphocytes % (auto) 17.4 %; Mean Corpuscular Hemoglobin 28.8 pg (25-34); Mean Corpuscular Hgb Conc 33.6 g/dL (32-36); Mean Corpuscular Volume 85.9 fL (80-100); Mean Platelet Volume 12.6 fL (7.4-10.4); Monocytes # (auto) 0.49 K/uL (0.11-0.59); Monocytes % (auto) 3.9 %; Neutrophils # (auto) 9.64 K/uL (1.4-6.5); Neutrophils % (auto) 76.5 %; Platelet Count 328 K/uL (130-400); RDW Coefficient of Variation 12.5 % (11.5-14.5); Red Blood Count 4.96 M/uL (4.2-5.4); White Blood Count 12.61 K/uL (4.8-10.8)
[2019-09-17 00:22] LABS: Appearance Urine Clear (Clear); Bilirubin Urine Negative (Negative); Blood Urine Negative (Negative); Color Urine Yellow; Glucose Urine UA 3+ (Negative); Ketones Urine 1+ (Negative); Leukocyte Esterase Urine Negative (Negative); Nitrite Urine Negative (Negative); Protein Urine Negative (Negative); Specific Gravity Urine 1.042 (1.000-1.030); Urobilinogen Urine Negative (Negative)
[2019-09-17 00:42] LABS: Albumin Globulin Ratio 0.8 (0.9-2); Albumin Level 3.6 gm/dl (3.4-5.0); BUN Creatinine Ratio 18.8 (10-20); Bilirubin,Total 0.2 mg/dl (0.2-1); Calcium 9.1 mg/dl (8.5-10.1); Creatinine Clr Calc Pharmacy 93.3 ml/min; Est GFR (African American) 81.8; Est GFR (Non-African American) 70.6; Globulin 4.5 gm/dl (2.5-4.0); Potassium 4.7 mmol/L (3.5-5.1); Total Protein 8.1 gm/dl (6.4-8.2)
[2019-09-17] MEDS ORDERED: NovoLIN-R INSULIN PER UNIT CHARGE SC STA (00:57)
[2019-09-17] MEDS ORDERED: SODIUM CHLORIDE 0.9% 1000ML 1,000 ML IV SCH (01:00)
--- NOTE | 2019-09-17 02:01 | Emergency Department Note ---
History of Present Illness General Chief complaint: Abdominal Pain Stated complaint: ABD PAIN, BACK PAIN Time Seen by Provider: 09/16/19 23:24 History of Present Illness Maximum Pain Intensity: 3 This is a 29-year-old female presenting to the emergency department for evaluation of abdominal pain that has been slowly worsening over the past 3 to 4 hours. The patient states her symptoms significantly worsened after eating dinner this evening. She feels very bloated and gassy. She has mild nausea but no vomiting. She feels like she is using the bathroom as normal. There is a past history of section x2, but she still has her gallbladder and appendix. She has not had any fevers or chills. She is diabetic. She rates her current discomfort a 3/10. No chest pain, chest tightness, or shortness of breath. She denies chance of . Home Medications Home Medications Medication Instructions Recorded Confirmed Type loratadine 10 mg tablet 10 mg PO QAM #30 tab 01/16/19 09/16/19 Rx blood-glucose sensor #3 ea 04/26/19 08/13/19 History insulin syringe-needle U-100 1 mL ea 04/26/19 08/13/19 History 31 gauge x 5/16" pen needle, diabetic 32 gauge x #500 ea 05/03/19 08/13/19 Rx 5/32" multivitamin 1 tab PO QAM 06/20/19 09/16/19 History insulin glargine 100 unit/mL (3 60 units SQ BID 90 Days #108 ml 08/17/19 09/16/19 Rx mL) subcutaneous pen buspirone 15 mg tablet 15 mg PO BID #60 tab 08/20/19 09/16/19 Rx levothyroxine 50 mcg tablet 50 mcg PO QAM #30 tab 08/22/19 09/16/19 Rx Ranitidine 150 mg PO DAILY PRN 09/16/19 09/16/19 History insulin lispro [Admelog SoloStar 0 units SUBCUT AC 09/16/19 09/16/19 History U-100 Insulin] Allergies Allergy/AdvReac Type Severity Reaction Status Date / Time No Known Allergies Allergy Verified 09/16/19 23:45 Past Med/Surg History Medical History Acid reflux related Anxiety Depression Dermatofibroma Diabetes dx age 12; IDDM Dyslipidemia Hidradenitis suppurativa (Acute) History of hypertension with last and current History of pre-eclampsia PRIOR Hypothyroidism Insomnia Morbid obesity Trigger finger Surgical History H/O section 12/09/2014 2/2 distress; "good pain control" with SAB perioperatively H/O section complicating H/O sinus surgery 2006 H/O tooth extraction top 2 wisdom teeth-2010 History of gynecologic surgery CO2 laser ablation of vulvar lesion History of hand surgery (Resolved) left for trigger finger History of tonsillectomy as a child S/P carpal tunnel release Social History Preferred Language: Icelandic Communication Ability: Effective Visual Impairment: No Limitations Hearing Ability: Normal Mineral Resources Inspector Required: No Beliefs That Will Affect Care: None marital status: Current Living Situation: Spouse Current Living Situation Comment: AND SON current occupational status: other current occupation: Homemaker Feels Safe at Home: Yes Smoking Status: Never smoker Second Hand Exposure: Yes ( CHILD) ; Hx Alcohol Use: No Hx Substance Use: No caffeine: Yes Dental Care, Regularly: Yes Physical Activity Frequency: Does not Exercise Seatbelt Use: always Review of Systems A total of 10 systems reviewed and were otherwise negative Physical Exam Vital Signs Vital Signs - 24 hr 09/16/19 23:20 09/17/19 00:58 09/17/19 02:00 Temperature 37.0 C Temperature Source Oral Pulse Rate 88 Pulse Rate [Finger] 80 83 Respiratory Rate 18 20 18 Respiratory Effort / Characteristics Non-Labored Spontaneous Non-Labored Spontaneous Non-Labored Spontaneous Respiratory Depth Normal Normal Normal Respiratory Pattern Regular Blood Pressure 172/115 H Blood Pressure [Left Arm] 121/80 137/84 Blood Pressure Mean 134 Blood Pressure Mean [Left Arm] 93 101 Blood Pressure Position Sitting Blood Pressure Position [Left Arm] Pulse Oximetry 97 97 96 Oxygen Delivery Method Room Air Room Air Room Air Sepsis Recent Fever Within 48 Hours No Sepsis Action Taken by Nursing No Action Required 09/17/19 03:30 Temperature Temperature Source Pulse Rate Pulse Rate [Finger] 86 Respiratory Rate 18 Respiratory Effort / Characteristics Respiratory Depth Respiratory Pattern Blood Pressure Blood Pressure [Left Arm] 139/88 Blood Pressure Mean Blood Pressure Mean [Left Arm] 105 Blood Pressure Position Blood Pressure Position [Left Arm] Sitting Pulse Oximetry 96 Oxygen Delivery Method Room Air Sepsis Recent Fever Within 48 Hours Sepsis Action Taken by Nursing VITALS: Vitals are noted on the nurse's note and reviewed by myself. Vital signs stable. GENERAL: Well-developed, well-nourished, white female, who mildly uncomfortable but overall pleasant and cooperative. HEAD: Normocephalic atraumatic. EYES: Pupils equal round and reactive to light and accommodation. Conjunctivae without injection, sclerae without icterus. Extraocular movements intact. NOSE: Patent, turbinates without inflammation or discharge. MOUTH: Mucous membranes moist. Tonsils are not enlarged. Pharynx without erythema, blood, or exudate. Uvula midline. Airway patent. NECK: Supple without nuchal rigidity. No lymphadenopathy. No thyromegaly. Cervical spine is nontender. HEART: Regular rate and rhythm without murmurs gallops or rubs. LUNGS: Clear to auscultation bilaterally without wheezes, rales or rhonchi. No retractions or accessory muscle use. ABDOMEN: Positive normal bowel sounds x 4. Soft, nontender, without masses or organomegaly. No guarding or rebound tenderness. MUSCULOSKELETAL: No muscle atrophy, erythema, or edema noted. Full range of motion in all extremities. NEURO: Patient was alert and oriented to person place and time. CN II through XII grossly intact. Course Administered Medications Discontinued Medications Sodium Chloride (Nss 1000ml) 1,000 mls @ 999 mls/hr IV .Q1H1M ANGELITA Stop: 09/17/19 00:45 Last Infusion: 09/17/19 01:06 Dose: 0 mls/hr Documented by: [id number] Admin: 09/16/19 23:54 Dose: 999 mls/hr Documented by: [id number] Famotidine (Pepcid 20mg Iv Push) 20 mg in 5 mls @ 2.5 mls/min IV NOW STA Stop: 09/16/19 23:35 Last Admin: 09/16/19 23:57 Dose: 2.5 mls/min Documented by: [id number] Sodium Chloride (Nss 1000ml) 1,000 mls @ 999 mls/hr IV .Q1H1M ANGELITA Stop: 09/17/19 02:00 Last Infusion: 09/17/19 02:19 Dose: 0 mls/hr Documented by: [id number] Admin: 09/17/19 01:06 Dose: 999 mls/hr Documented by: [id number] Insulin Human Regular (Novolin R U-100 Per Unit) 10 units SC NOW STA Stop: 09/17/19 00:58 Last Admin: 09/17/19 01:05 Dose: 10 units Documented by: [id number] Cosigned by: [id number] Ketorolac Tromethamine (Toradol) 30 mg IV NOW Stop: 09/16/19 23:35 Last Admin: 09/16/19 23:55 Dose: 30 mg Documented by: [id number] Ondansetron HCl (Zofran) 4 mg IV NOW STA Stop: 09/16/19 23:35 Last Admin: 09/16/19 23:55 Dose: 4 mg Documented by: [id number] Medical Decision Making Differential Diagnosis Differential diagnosis: Etiologies such as biliary colic, cholecystitis, hepatitis, pancreatitis, cardiac disease, pancreatitis, gastritis, peptic ulcer disease, appendicitis, cystitis, diverticulitis, mesenteric ischemia, inflammatory bowel disease, ileus, bowel obstruction, testicular/adnexal torsion, aortic pathology, shingles, as well as others were considered Laboratory Data Result diagrams: 09/16/19 23:53 09/16/19 23:53 Lab Results 09/16/19 09/16/19 09/16/19 Range/Units 23:53 23:53 23:58 WBC 12.61 H (4.8-10.8) K/uL RBC 4.96 (4.2-5.4) M/uL Hgb 14.3 (12.0-16.0) g/dL Hct 42.6 (37-47) % MCV 85.9 (80-100) fL MCH 28.8 (25-34) pg MCHC 33.6 (32-36) g/dL RDW Std Deviation 39.0 (36.4-46.3) fL RDW Coeff of [place] 12.5 (11.5-14.5) % Plt Count 328 (130-400) K/uL MPV 12.6 H (7.4-10.4) fL Immature Gran % (Auto) 0.3 % Neut % (Auto) 76.5 % Lymph % (Auto) 17.4 % [place] % (Auto) 3.9 % Eos % (Auto) 1.3 % Baso % (Auto) 0.6 % Immature Gran # (Auto) 0.04 H (0.00-0.02) K/uL Neut # (Auto) 9.64 H (1.4-6.5) K/uL Lymph # (Auto) 2.20 (1.2-3.4) K/uL [place] # (Auto) 0.49 (0.11-0.59) K/uL Eos # (Auto) 0.17 (0-0.5) K/uL Baso # (Auto) 0.07 (0-0.2) K/uL Sodium 129 L (136-145) mmol/L Potassium 4.7 (3.5-5.1) mmol/L Chloride 97 L (98-107) mmol/L Carbon Dioxide 23 (21-32) mmol/L Anion Gap 9.0 (3-11) BUN 20 H (7-18) mg/dl Creatinine 1.07 (0.6-1.2) mg/dl Est Cr Clr Drug Dosing 93.3 ml/min Est GFR ( Amer) 81.8 Est GFR (Non-Af Amer) 70.6 BUN/Creatinine Ratio 18.8 (10-20) Glucose 620 H* (70-99) mg/dl POC Glucose (70-99) mg/dl Calcium 9.1 (8.5-10.1) mg/dl Total Bilirubin 0.2 (0.2-1) mg/dl AST 8 L (15-37) U/L ALT 21 (12-78) U/L Alkaline Phosphatase 133 H (45-117) U/L Total Protein 8.1 (6.4-8.2) gm/dl Albumin 3.6 (3.4-5.0) gm/dl Globulin 4.5 H (2.5-4.0) gm/dl Albumin/Globulin Ratio 0.8 L (0.9-2) Lipase 88 (73-393) U/L Beta-Hydroxybutyric Acd (0.2-2.81) mg/dl Specimen Hemolysis Urine Color Yellow Urine Appearance Clear (Clear) Urine pH 5.0 (4.5-7.5) Ur Specific [place] 1.042 H (1.000-1.030) Urine Protein Negative (Negative) Urine Glucose (UA) 3+ H (Negative) Urine Ketones 1+ H (Negative) Urine Blood Negative (Negative) Urine Nitrite Negative (Negative) Urine Bilirubin Negative (Negative) Urine Urobilinogen Negative (Negative) Ur Leukocyte Esterase Negative (Negative) POC Ur Test (NEG) 09/17/19 09/17/19 09/17/19 Range/Units 01:34 02:10 02:11 WBC (4.8-10.8) K/uL RBC (4.2-5.4) M/uL Hgb (12.0-16.0) g/dL Hct (37-47) % MCV (80-100) fL MCH (25-34) pg MCHC (32-36) g/dL RDW Std Deviation (36.4-46.3) fL RDW Coeff of B[place]heva (11.5-14.5) % Plt Count (130-400) K/uL MPV (7.4-10.4) fL Immature Gran % (Auto) % Neut % (Auto) % Lymph % (Auto) % [place] % (Auto) % Eos % (Auto) % Baso % (Auto) % Immature Gran # (Auto) (0.00-0.02) K/uL Neut # (Auto) (1.4-6.5) K/uL Lymph # (Auto) (1.2-3.4) K/uL [place] # (Auto) (0.11-0.59) K/uL Eos # (Auto) (0-0.5) K/uL Baso # (Auto) (0-0.2) K/uL Sodium (136-145) mmol/L Potassium (3.5-5.1) mmol/L Chloride (98-107) mmol/L Carbon Dioxide (21-32) mmol/L Anion Gap (3-11) BUN (7-18) mg/dl Creatinine (0.6-1.2) mg/dl Est Cr Clr Drug Dosing ml/min Est GFR ( Amer) Est GFR (Non-Af Amer) BUN/Creatinine Ratio (10-20) Glucose (70-99) mg/dl POC Glucose 448 H* 453 H* (70-99) mg/dl Calcium (8.5-10.1) mg/dl Total Bilirubin (0.2-1) mg/dl AST (15-37) U/L ALT (12-78) U/L Alkaline Phosphatase (45-117) U/L Total Protein (6.4-8.2) gm/dl Albumin (3.4-5.0) gm/dl Globulin (2.5-4.0) gm/dl Albumin/Globulin Ratio (0.9-2) Lipase (73-393) U/L Beta-Hydroxybutyric Acd 5.65 H (0.2-2.81) mg/dl Specimen Hemolysis Urine Color Urine Appearance (Clear) Urine pH (4.5-7.5) Ur Specific [place] (1.000-1.030) Urine Protein (Negative) Urine Glucose (UA) (Negative) Urine Ketones (Negative) Urine Blood (Negative) Urine Nitrite (Negative) Urine Bilirubin (Negative) Urine Urobilinogen (Negative) Ur Leukocyte Esterase (Negative) POC Ur Test (NEG) 09/17/19 09/17/19 Range/Units 03:27 Unknown WBC (4.8-10.8) K/uL RBC (4.2-5.4) M/uL Hgb (12.0-16.0) g/dL Hct (37-47) % MCV (80-100) fL MCH (25-34) pg MCHC (32-36) g/dL RDW Std Deviation (36.4-46.3) fL RDW Coeff of B[place]heva (11.5-14.5) % Plt Count (130-400) K/uL MPV (7.4-10.4) fL Immature Gran % (Auto) % Neut % (Auto) % Lymph % (Auto) % [place] % (Auto) % Eos % (Auto) % Baso % (Auto) % Immature Gran # (Auto) (0.00-0.02) K/uL Neut # (Auto) (1.4-6.5) K/uL Lymph # (Auto) (1.2-3.4) K/uL [place] # (Auto) (0.11-0.59) K/uL Eos # (Auto) (0-0.5) K/uL Baso # (Auto) (0-0.2) K/uL Sodium (136-145) mmol/L Potassium (3.5-5.1) mmol/L Chloride (98-107) mmol/L Carbon Dioxide (21-32) mmol/L Anion Gap (3-11) BUN (7-18) mg/dl Creatinine (0.6-1.2) mg/dl Est Cr Clr Drug Dosing ml/min Est GFR ( Amer) Est GFR (Non-Af Amer) BUN/Creatinine Ratio (10-20) Glucose (70-99) mg/dl POC Glucose 366 H* (70-99) mg/dl Calcium (8.5-10.1) mg/dl Total Bilirubin (0.2-1) mg/dl AST (15-37) U/L ALT (12-78) U/L Alkaline Phosphatase (45-117) U/L Total Protein (6.4-8.2) gm/dl Albumin (3.4-5.0) gm/dl Globulin (2.5-4.0) gm/dl Albumin/Globulin Ratio (0.9-2) Lipase (73-393) U/L Beta-Hydroxybutyric Acd (0.2-2.81) mg/dl Specimen Hemolysis Urine Color Urine Appearance (Clear) Urine pH (4.5-7.5) Ur Specific [place] (1.000-1.030) Urine Protein (Negative) Urine Glucose (UA) (Negative) Urine Ketones (Negative) Urine Blood (Negative) Urine Nitrite (Negative) Urine Bilirubin (Negative) Urine Urobilinogen (Negative) Ur Leukocyte Esterase (Negative) POC Ur Test NEG (NEG) Imaging Data Radiologist's Impression: Preliminary Findings Only See Final Report For Complete Findings US RUQ: Fatty liver with sparing around the gallbladder fossa Contracted gallbladder CBD 2 mm Preliminary Findings Only See Final Report For Complete Findings CT ABDOMEN & PELVIS Without Contrast: Mild fatty liver. Mild splenomegaly at 6.3 x 13.3 cm Distended small bowel loops with a caliber of 3.5 cm. Consider ileus versus mid small bowel obstruction. MDM Narrative Physical exam and history were performed. Nursing notes, EMR, and Medication List were personally reviewed. Patient appears to have abdominal pain, nausea, and vomiting bringing her to the ER. On examination she does not appear toxic and her abdomen is fairly benign. Her symptoms seem to have worsened after eating. IV access was established and labs were obtained. She was given IV fluids, IV Pepcid, IV Toradol, and IV Zofran for comfort. She was sent to ultrasound for further evaluation of her symptoms. Patient's blood work is as above and was reviewed. She does have a slightly elevated white blood cell count of 12.6. She does not have a significant anemia. Her glucose is markedly elevated at 620 with an elevated beta hydroxy of 5.65. Urine is with glucose but no gross evidence of infection. She is not . Ultrasound was reviewed by myself and radiology showing no acute process. Because of her symptoms I did elect perform a CT scan, which does reveal some dilated small bowel loops concerning for possible ileus or small bowel obstruction. Clinically I do not suspect a small bowel obstruction, although she does have 2 sections in the past which could be a cause for this. The patient was reevaluated multiple times throughout the course of her stay. She did have a large amount of food emesis x1 episode here in the ER, and this did seem to somewhat improve her abdominal discomfort. The patient was given 10 units subcu insulin as well as additional fluids. I had a lengthy discussion with the patient regarding her findings. Some of her symptoms tonight may be from her not taking her insulin the past 2 weeks. She states that her father unexpectedly, and she has been dealing with the estate. The patient did have improvement of her sugar after fluids and insulin, but overall does not seem well for discharge home. I did discuss the case with the on-call hospitalist who agreed to evaluate the patient here in the department. Please see their dictation for further patient course, plan, and disposition. The chart was completed utilizing [employer] Speech Voice Recognition Software. Grammatical errors, random word insertions, pronoun errors, and incomplete sentences are an occasional consequence of this system due to software limitations, ambient noise, and hardware issues. Any formal questions or concerns about the content, text, or information contained within the body of this dictation should be directly addressed to the provider for clarification. . Impression & Plan Hyperglycemic crisis in diabetes mellitus, Abdominal pain, Nausea and vomiting Discharge Plan Visit Data Chief Complaint: Abdominal Pain Stated Complaint: ABD PAIN, BACK PAIN ED Provider: Grazyna Grant ED Midlevel Provider: Mark Galindo Discharge Problem: Hyperglycemic crisis in diabetes mellitus, Abdominal pain, Nausea and vomiting Patient Disposition: Admitted As Inpatient Discharge Instructions Interventions: ED Discharge Assessment Last Done: 09/17/19 03:52 Forms Stand Alone Forms: [facility] Prescriptions Prescriptions: No Action loratadine [Allergy Relief (loratadine)] 10 mg tablet 10 mg PO QAM Qty: 30 RF: 5 (DME) pen needle, diabetic [BD Ultra-Fine Iza Pen Needle] 32 gauge x 5/32" needle See Rx Instructions .ROUTE .MEDSUPPLY Qty: 500 RF: 3 Basaglar KwikPen U-100 Insulin 100 unit/mL (3 mL) insulin pen 60 units SQ BID 90 Days Qty: 108 RF: 3 buspirone 15 mg tablet 15 mg PO BID Qty: 60 RF: 3 (DME) insulin syringe-needle U-100 [BD Insulin Syringe Ultra-Fine] 1 mL 31 gauge x 5/16 syringe See Dose Instructions [id number] .MEDSUPPLY RF: 0 (DME) Dexcom G6 Sensor Device See Rx Instructions .ROUTE .MEDSUPPLY Qty: 3 RF: 0 levothyroxine 50 mcg tablet 50 mcg PO QAM Qty: 30 RF: 0 Ranitidine 150 mg PO DAILY PRN (Reason: INDIGESTION/HEARTBURN) RF: 0 insulin lispro [Admelog SoloStar U-100 Insulin] 100 unit/mL insulin pen 0 units subcut AC RF: 0 multivitamin Tablet,Chewable 1 tab PO QAM RF: 0 Referrals Referrals: Oren Patton MD [Primary Care Provider] - Discharge Problem: Abdominal pain Qualifiers: Abdominal location: generalized Qualified Code(s): R10.84 - Generalized abdominal pain Nausea and vomiting Qualifiers: Vomiting type: unspecified Vomiting Intractability: non-intractable Qualified Code(s): R11.2 - Nausea with vomiting, unspecified
[2019-09-17 02:21] LABS: Beta-Hydroxybutyrate 5.65 mg/dl (0.2-2.81)
--- NOTE | 2019-09-17 03:48 | History & Physical Report ---
Date of Service September 17, 2019 Assessment & Plan (1) Hyperglycemia: Patient with poorly controlled DM-II presenting with hyperglycemia. Last HgbA1C on 04/26/19 = 12.4. Patient does not seem to routinely check her blood sugars and has been missing her insulin recently. She was unable to tell me how much insulin she is supposed to take daily. She has fatty liver most likely secondary to her diabetes. Blood sugars have come down considerably with IVF and 10u insulin 448 --> 366. No anion gap -Admit to medical floor -Lantus 30u BID - will give first dose on arrival to the floor (she has 60 u listed as home medication but I worry that she may be non-adherent to her regimen and am not comfortably administering this amount for now) -ISS with CF=18, CR=7 -Continue IVF - NSS at 125mL/hr x 2 liters -Check blood sugar q 4 hours -Check A1C -Diabetes Education - reteaching/training appreciated. Patient may also benefit from Nutritional Counseling at a later date Present on Admission?: Yes (2) Abdominal pain: Improved. Patient reports some significant constipation of late, no BM x 1 week. She had a large BM today. CT with concern for SBO. Patient passing gas, normoactive bowel sounds present -Zofran PRN Nausea -NPO for now -IVF and electrolyte repletion -Will defer Surgical Evaluation for now Present on Admission?: Yes (3) Anxiety: Chronic -Continue Buspirone 15mg po BID Present on Admission?: Yes (4) Hypothyroidism: Chronic -Continue Synthroid 50mcg po daily F/E/N - NSS at 125mL/hr, monitor electrolytes and replete as needed, NPO for now given concern for possible bowel obstruction Ppx - Lovenox Code - Full Dispo - Admit to medical floor Admission and Anticipated Discharge Date Admission Date: 09/17/19 Anticipated date of discharge: 09/18/19 History of Present Illness Chief Complaint: Hyperglycemia Primary Care Provider: Oren Patton MD Rayna Nataly is a 29yo C female with history fo DM, HLP, Hypothyroidism presenting with abdominal pain, hyperglycemia. Patient's father recently due to complications from prostate cancer. Since then, Rayna hasn't been taking care of herself. She has not been checking her blood sugars or taking her medications as prescribed. This evening she had dinner around 19:30 consisting of pasta, garlic bread and coca cola after which she developed severe, diffuse crampy abdominal pain, 10/10 in severity. She took TUMS x 4 and Ranitidine with no relief. She had a large episode of emesis in the ER with improvement in abdominal pain. Now with some mild epigastric discomfort only. Patient reports some recent constipation. She had a hard BM today that was her first one in a week - typically has 2-3 BMs per day. She is passing gas but none in the last few hours. No additional complaints at this time. ER Course: Pepcid 20mg IV, Iinsulin 10u SQ, Toradol, NSS x 2 L Allergies Allergy/AdvReac Type Severity Reaction Status Date / Time No Known Allergies Allergy Verified 09/16/19 23:45 Home Medications Home Medications Medication Instructions Recorded Confirmed Type loratadine 10 mg tablet 10 mg PO QAM #30 tab 01/16/19 09/16/19 Rx blood-glucose sensor #3 ea 04/26/19 08/13/19 History insulin syringe-needle U-100 1 mL ea 04/26/19 08/13/19 History 31 gauge x 5/16" pen needle, diabetic 32 gauge x #500 ea 05/03/19 08/13/19 Rx 5/32" multivitamin 1 tab PO QAM 06/20/19 09/16/19 History insulin glargine 100 unit/mL (3 60 units SQ BID 90 Days #108 ml 08/17/19 09/16/19 Rx mL) subcutaneous pen buspirone 15 mg tablet 15 mg PO BID #60 tab 08/20/19 09/16/19 Rx levothyroxine 50 mcg tablet 50 mcg PO QAM #30 tab 08/22/19 09/16/19 Rx Ranitidine 150 mg PO DAILY PRN 09/16/19 09/16/19 History insulin lispro [Admelog SoloStar 0 units SUBCUT AC 09/16/19 09/16/19 History U-100 Insulin] Past Med/Surg History Medical History Acid reflux related Anxiety Depression Dermatofibroma Diabetes dx age 12; IDDM Dyslipidemia Hidradenitis suppurativa (Acute) History of hypertension with last and current History of pre-eclampsia PRIOR Hypothyroidism Insomnia Morbid obesity Trigger finger Surgical History H/O section 12/09/2014 2/2 distress; "good pain control" with SAB perioperatively H/O section complicating H/O sinus surgery 2006 H/O tooth extraction top 2 wisdom teeth-2010 History of gynecologic surgery CO2 laser ablation of vulvar lesion History of hand surgery (Resolved) left for trigger finger History of tonsillectomy as a child S/P carpal tunnel release Social History Preferred Language: Spanish Communication Ability: Effective Visual Impairment: No Limitations Hearing Ability: Normal Clinical Professor Required: No Beliefs That Will Affect Care: None marital status: Current Living Situation: Spouse Current Living Situation Comment: AND SON current occupational status: other current occupation: Homemaker Feels Safe at Home: Yes Smoking Status: Never smoker Second Hand Exposure: Yes ( CHILD) ; Hx Alcohol Use: No Hx Substance Use: No caffeine: Yes Dental Care, Regularly: Yes Physical Activity Frequency: Does not Exercise Seatbelt Use: always Review of Systems Review of Systems: All systems reviewed & are unremarkable except as noted in HPI & below and All systems reviewed & are unremarkable except as noted in Subje ctive Physical Exam Physical Exam: General: obese female patient resting comfortably, NAD, non- toxic in appearance, AA&O x 4 Skin: warm, dry, intact, hyperpigmentation on back and abdomen HEENT: NC/AT, PERRL, EOMI, anicteric sclera, conjunctiva without injection, external ear normal to inspection and nontender, nares patent, moist mucus membranes, dentition intact, no oropharyngeal lesions, neck supple, trachea midline, no LAD, no thyromegaly, no JVD Heart: +S1/S2, regular, no m/r/g Lungs: equal air entry bilaterally, no rales/rhonchi/wheezes Abd: +BS diminished, soft, mildly tender with deep palpation without rebound/guarding/peritoneal signs, ND, no masses/organomegaly/ascites Ext: warm, 2+ pulses in UE/LE bilaterally, no clubbing/cyanosis or edema Neuro: nonfocal, patient AA&O x 4, speech intact, no facial droop, moving all extremities on command with equal strength 5/5 Results & Data Results & Data ([facility]) Vital Signs (Past 12 Hours) Vital Signs Temp Pulse Pulse Resp BP BP Pulse Ox 09/17/19 02:00 83 18 137/84 96 09/17/19 00:58 80 20 121/80 97 09/16/19 23:20 37.0 C 88 18 172/115 H 97 Laboratory Results Lab Results 09/16/19 09/16/19 09/16/19 Range/Units 23:53 23:53 23:58 WBC 12.61 H (4.8-10.8) K/uL RBC 4.96 (4.2-5.4) M/uL Hgb 14.3 (12.0-16.0) g/dL Hct 42.6 (37-47) % MCV 85.9 (80-100) fL MCH 28.8 (25-34) pg MCHC 33.6 (32-36) g/dL RDW Std Deviation 39.0 (36.4-46.3) fL RDW Coeff of [place] 12.5 (11.5-14.5) % Plt Count 328 (130-400) K/uL MPV 12.6 H (7.4-10.4) fL Immature Gran % (Auto) 0.3 % Neut % (Auto) 76.5 % Lymph % (Auto) 17.4 % [place] % (Auto) 3.9 % Eos % (Auto) 1.3 % Baso % (Auto) 0.6 % Immature Gran # (Auto) 0.04 H (0.00-0.02) K/uL Neut # (Auto) 9.64 H (1.4-6.5) K/uL Lymph # (Auto) 2.20 (1.2-3.4) K/uL [place] # (Auto) 0.49 (0.11-0.59) K/uL Eos # (Auto) 0.17 (0-0.5) K/uL Baso # (Auto) 0.07 (0-0.2) K/uL Sodium 129 L (136-145) mmol/L Potassium 4.7 (3.5-5.1) mmol/L Chloride 97 L (98-107) mmol/L Carbon Dioxide 23 (21-32) mmol/L Anion Gap 9.0 (3-11) BUN 20 H (7-18) mg/dl Creatinine 1.07 (0.6-1.2) mg/dl Est Cr Clr Drug Dosing 93.3 ml/min Est GFR ( Amer) 81.8 Est GFR (Non-Af Amer) 70.6 BUN/Creatinine Ratio 18.8 (10-20) Glucose 620 H* (70-99) mg/dl POC Glucose (70-99) mg/dl Calcium 9.1 (8.5-10.1) mg/dl Total Bilirubin 0.2 (0.2-1) mg/dl AST 8 L (15-37) U/L ALT 21 (12-78) U/L Alkaline Phosphatase 133 H (45-117) U/L Total Protein 8.1 (6.4-8.2) gm/dl Albumin 3.6 (3.4-5.0) gm/dl Globulin 4.5 H (2.5-4.0) gm/dl Albumin/Globulin Ratio 0.8 L (0.9-2) Lipase 88 (73-393) U/L Beta-Hydroxybutyric Acd (0.2-2.81) mg/dl Specimen Hemolysis Urine Color Yellow Urine Appearance Clear (Clear) Urine pH 5.0 (4.5-7.5) Ur Specific [place] 1.042 H (1.000-1.030) Urine Protein Negative (Negative) Urine Glucose (UA) 3+ H (Negative) Urine Ketones 1+ H (Negative) Urine Blood Negative (Negative) Urine Nitrite Negative (Negative) Urine Bilirubin Negative (Negative) Urine Urobilinogen Negative (Negative) Ur Leukocyte Esterase Negative (Negative) POC Ur Test (NEG) 09/17/19 09/17/19 09/17/19 Range/Units 01:34 02:10 02:11 WBC (4.8-10.8) K/uL RBC (4.2-5.4) M/uL Hgb (12.0-16.0) g/dL Hct (37-47) % MCV (80-100) fL MCH (25-34) pg MCHC (32-36) g/dL RDW Std Deviation (36.4-46.3) fL RDW Coeff of Batsheva (11.5-14.5) % Plt Count (130-400) K/uL MPV (7.4-10.4) fL Immature Gran % (Auto) % Neut % (Auto) % Lymph % (Auto) % [place] % (Auto) % Eos % (Auto) % Baso % (Auto) % Immature Gran # (Auto) (0.00-0.02) K/uL Neut # (Auto) (1.4-6.5) K/uL Lymph # (Auto) (1.2-3.4) K/uL [place] # (Auto) (0.11-0.59) K/uL Eos # (Auto) (0-0.5) K/uL Baso # (Auto) (0-0.2) K/uL Sodium (136-145) mmol/L Potassium (3.5-5.1) mmol/L Chloride (98-107) mmol/L Carbon Dioxide (21-32) mmol/L Anion Gap (3-11) BUN (7-18) mg/dl Creatinine (0.6-1.2) mg/dl Est Cr Clr Drug Dosing ml/min Est GFR ( Amer) Est GFR (Non-Af Amer) BUN/Creatinine Ratio (10-20) Glucose (70-99) mg/dl POC Glucose 448 H* 453 H* (70-99) mg/dl Calcium (8.5-10.1) mg/dl Total Bilirubin (0.2-1) mg/dl AST (15-37) U/L ALT (12-78) U/L Alkaline Phosphatase (45-117) U/L Total Protein (6.4-8.2) gm/dl Albumin (3.4-5.0) gm/dl Globulin (2.5-4.0) gm/dl Albumin/Globulin Ratio (0.9-2) Lipase (73-393) U/L Beta-Hydroxybutyric Acd 5.65 H (0.2-2.81) mg/dl Specimen Hemolysis Urine Color Urine Appearance (Clear) Urine pH (4.5-7.5) Ur Specific [place] (1.000-1.030) Urine Protein (Negative) Urine Glucose (UA) (Negative) Urine Ketones (Negative) Urine Blood (Negative) Urine Nitrite (Negative) Urine Bilirubin (Negative) Urine Urobilinogen (Negative) Ur Leukocyte Esterase (Negative) POC Ur Test (NEG) 09/17/19 09/17/19 Range/Units 03:27 Unknown WBC (4.8-10.8) K/uL RBC (4.2-5.4) M/uL Hgb (12.0-16.0) g/dL Hct (37-47) % MCV (80-100) fL MCH (25-34) pg MCHC (32-36) g/dL RDW Std Deviation (36.4-46.3) fL RDW Coeff of Batsheva (11.5-14.5) % Plt Count (130-400) K/uL MPV (7.4-10.4) fL Immature Gran % (Auto) % Neut % (Auto) % Lymph % (Auto) % [place] % (Auto) % Eos % (Auto) % Baso % (Auto) % Immature Gran # (Auto) (0.00-0.02) K/uL Neut # (Auto) (1.4-6.5) K/uL Lymph # (Auto) (1.2-3.4) K/uL [place] # (Auto) (0.11-0.59) K/uL Eos # (Auto) (0-0.5) K/uL Baso # (Auto) (0-0.2) K/uL Sodium (136-145) mmol/L Potassium (3.5-5.1) mmol/L Chloride (98-107) mmol/L Carbon Dioxide (21-32) mmol/L Anion Gap (3-11) BUN (7-18) mg/dl Creatinine (0.6-1.2) mg/dl Est Cr Clr Drug Dosing ml/min Est GFR ( Amer) Est GFR (Non-Af Amer) BUN/Creatinine Ratio (10-20) Glucose (70-99) mg/dl POC Glucose 366 H* (70-99) mg/dl Calcium (8.5-10.1) mg/dl Total Bilirubin (0.2-1) mg/dl AST (15-37) U/L ALT (12-78) U/L Alkaline Phosphatase (45-117) U/L Total Protein (6.4-8.2) gm/dl Albumin (3.4-5.0) gm/dl Globulin (2.5-4.0) gm/dl Albumin/Globulin Ratio (0.9-2) Lipase (73-393) U/L Beta-Hydroxybutyric Acd (0.2-2.81) mg/dl Specimen Hemolysis Urine Color Urine Appearance (Clear) Urine pH (4.5-7.5) Ur Specific [place] (1.000-1.030) Urine Protein (Negative) Urine Glucose (UA) (Negative) Urine Ketones (Negative) Urine Blood (Negative) Urine Nitrite (Negative) Urine Bilirubin (Negative) Urine Urobilinogen (Negative) Ur Leukocyte Esterase (Negative) POC Ur Test NEG (NEG) Diagnostic Findings RUQ-US - Per STAT-rad - fatty liver sparing around the gallbladder fossa. Contracted gallbladder. CBD 2mm CT Abd - Per STAT-rad - Mild fatty liver. Mild splenomegaly at 6.3 x 13.3 cm. Distended small bowel loops with a caliber of 3.5cm. Consider ileus versus mid SBO Code Status & VTE Plan Code Status FULL VTE Prophylaxis Plan VTE Prophylaxis will be ordered: Yes PG Care Time/CCT Total # of Minutes Spent Total Time Spent with Patient: Total time spent is greater than 50% in coordination of care (as documented) at patient's floor/unit and/or counseling patient: Coding Level of Care Code 08163 Initial Inpt Care Lvl 3 Diagnoses Hyperglycemia R73.9 Abdominal pain R10.84 Abdominal location: generalized Anxiety F41.9 Hypothyroidism E03.9 Hypothyroidism type: unspecified (1) Abdominal pain Abdominal location: generalized Qualified Code(s): R10.84 - Generalized abdominal pain (2) Hypothyroidism Hypothyroidism type: unspecified Qualified Code(s): E03.9 - Hypothyroidism, unspecified
[2019-09-17] MEDS ORDERED: CARBOHYDRATES FOR HYPOGLYCEMIA PO PRN (04:41)
[2019-09-17] MEDS ORDERED: GLUCOSE 10 TABS/TUBE PO PRN (04:41)
[2019-09-17] MEDS ORDERED: ONDANSETRON INJ 2 MG/ML 2 ML VIAL IV PRN (04:41)
[2019-09-17] MEDS ORDERED: GLUCOSE 40% GEL 15 GM TUBE PO PRN (04:41)
[2019-09-17] MEDS ORDERED: DOCUSATE SODIUM 100 MG CAP PO PRN (04:41)
[2019-09-17] MEDS ORDERED: DEXTROSE 50% 50 ML SYRINGE IV PRN (04:41)
[2019-09-17] MEDS ORDERED: ACETAMINOPHEN 325 MG TAB PO PRN (04:41)
[2019-09-17] MEDS ORDERED: GLUCAGON FOR INJ 1 MG VIAL SQ PRN (04:41)
[2019-09-17 05:08] LABS: Magnesium 2.2 mg/dl (1.8-2.4); Phosphorus 3.7 mg/dl (2.5-4.9)
[2019-09-17] MEDS ORDERED: INSULIN ASPART 100 UNITS/ML 3 ML PEN SC SCH (05:30)
[2019-09-17] MEDS: INSULIN GLARGINE SOLOSTAR 100 UNITS/ML 3 ML PEN SQ SCH ×2 (05:37→20:44)
[2019-09-17] MEDS: SODIUM CHLORIDE 0.9% 1000ML 1,000 ML IV SCH ×2 (05:38→13:07)
[2019-09-17] MEDS: LEVOTHYROXINE SODIUM 50 MCG TABLET PO SCH (05:38)
[2019-09-17] MEDS ORDERED: Nursing to Pharmacy Communication ONE (06:25)
--- NOTE | 2019-09-17 07:05 | CT Scan Report ---
CT OF THE ABDOMEN AND PELVIS WITHOUT CONTRAST CLINICAL HISTORY: Abdominal pain. Elevated WBC. COMPARISON STUDY: Right upper quadrant ultrasound and KUB September 17, 2019. CT of the pelvis March. TECHNIQUE: Axial images of the abdomen and pelvis were obtained without IV contrast. Images were revi ewed in the axial, sagittal, and coronal planes. Automated exposure control was utilized for the jacinta dy. A dose lowering technique was utilized adhering to the principles of ALARA. FINDINGS: Several small right lower lobe pulmonary nodules are unchanged and CT of December 02, 2015. T hese are benign given stability. No pneumatosis, free air or portal venous gas is present. Evaluation of the abdomen and pelvis is suboptimal on this unenhanced examination. The liver, spleen, adrenal g lands, kidneys and pancreas are unremarkable. There is borderline splenomegaly. There is no hydroneph rosis. No biliary or pancreatic ductal dilatation is present. The appendix is normal. Multiple loops of mid small bowel are mildly dilated and fluid-filled. Well-defined transition point is not identifi ed. There is mild associated mesenteric infiltration trace ascites. No lymphadenopathy is present. A suspected 4 cm left ovarian cyst is noted. There are no suspicious osseous lesions. IMPRESSION: Multiple loops of mildly dilated fluid-filled small bowel without well-defined transition point. Mild associated mesenteric infiltration and trace ascites. The findings could reflect a partial small bow el obstruction, enteritis or ileus. ACT 112: Negative or not required by law. Electronically signed by: Danial Thorpe M.D. 09/17/2019 7:04 AM
--- NOTE | 2019-09-17 07:08 | XRay Report ---
KUB CLINICAL HISTORY: Abdominal pain and bloating. COMPARISON STUDY: None. FINDINGS: Multiple loops of mildly dilated small bowel are noted. No urinary calculi are identified. Sensitivity is diminished on this supine exam but there is no evidence for free air. IMPRESSION: Multiple mildly dilated loops of small bowel. The findings favor a partial small bowel o bstruction although an ileus could appear similar. ACT 112: Negative or not required by law. Electronically signed by: Danial Thorpe M.D. 09/17/2019 7:07 AM
[2019-09-17 07:09] LABS: Estimated Average Glucose 324 mg/dl; Hemoglobin A1C 12.9 % (4.5-5.6)
--- NOTE | 2019-09-17 07:32 | Ultrasound Report ---
ABDOMINAL ULTRASOUND, RIGHT UPPER QUADRANT HISTORY: Generalized abd pain after eating. COMPARISON: None. FINDINGS: Pancreas: The pancreatic tail is obscured by overlying bowel gas. The remaining portions of the pancr eas are within normal limits. Liver: Enlarged measuring 24 cm in length. Mild hepatic steatosis with fatty sparing near the renato h epatis. Gallbladder: The gallbladder is contracted. No definite gallbladder wall thickening or gallstones. CBD: 2 mm. Right kidney: No hydronephrosis. IMPRESSION: 1. Hepatomegaly demonstrating mild fatty change. 2. Contracted gallbladder. No gallstones. ACT 112: Negative or not required by law. Electronically signed by: Shashi Nguyen M.D. 09/17/2019 7:31 AM
[2019-09-17] MEDS: INSULIN ASPART 100 UNITS/ML 3 ML PEN SC SCH ×5 (08:01→23:41)
[2019-09-17] MEDS: LORATADINE 10 MG TAB PO SCH (08:01)
[2019-09-17] MEDS: ENOXAPARIN INJ 40 MG/0.4 ML SYR SQ SCH (08:01)
[2019-09-17] MEDS: BusPIRone 15 MG TAB PO SCH ×2 (08:01→20:43)
--- NOTE | 2019-09-17 14:56 | Hospitalist Progress Note ---
Date of Service September 17, 2019 Assessment & Plan (1) Hyperglycemia: Patient with poorly controlled DM-II presenting with hyperglycemia. Last HgbA1C on 04/26/19 = 12.4. Patient does not seem to routinely check her blood sugars and has been missing her insulin recently. She was unable to tell me how much insulin she is supposed to take daily. She has fatty liver most likely secondary to her diabetes. Blood sugars have come down considerably with IVF and 10u insulin 448 --> 366. No anion gap -Admit to medical floor -Lantus 30u BID - will give first dose on arrival to the floor (she has 60 u listed as home medication but I worry that she may be non-adherent to her regimen and am not comfortably administering this amount for now) Has not required insulin drip -A1c 12.9, which is slightly higher than 04/2019 (12.4) Pt suggesting she was noncompliant with her insulin, however seems that her BS were highly varied prior to the of her father as well Also with fatty liver seen on imaging, which is concerning given her age Adv to clears trial given BS and GI sx improving -Diabetes Education - reteaching/training appreciated. Patient may also benefit from Nutritional Counseling at a later date (2) Abdominal pain: Improved. Patient reports some significant constipation of late, no BM x 1 week. She had a large BM today. CT with concern for SBO. Patient passing gas, normoactive bowel sounds present -Zofran PRN Nausea -IVF and electrolyte repletion -Will defer Surgical Evaluation for now (3) Anxiety: Chronic -Continue Buspirone 15mg po BID (4) Hypothyroidism: Chronic -Continue Synthroid 50mcg po daily Ppx - Lovenox Code - Full Dispo - Admit to medical floor Admission and Anticipated Discharge Date Admission Date: September 17, 2019 Subjective Pt feels overall improved, but still with mild epigastric pain. She has not had further n/v. Still no bowel movement. Last was yesterday before coming to the hospital. Pt denies fever, SOB, chest pain, LE pain or swelling. Pt states she has not been taking her insulin due to a change in her schedule. She states that her father on 09/04 and since that time, she and her sister have been going to his home early in the morning to work on his effects. She states that she has been able to remember her HS meds as she is generally home by then. She has not missed any of those. She has not been checking her BS during this time either, but 2-3 weeks ago they had been 90-260. Review of Systems Review of Systems: Pertinent positives and negatives reviewed in HPI--all others negative Physical Exam Constitutional: WD/WN, vitals as above + obese Eyes: normal visual thompson by confrontation and + anicteric sclerae Neck: normal visual inspection and trachea midline Respiratory: normal respiratory effort, lungs clear to auscultation Cardiovascular: Rate/Rhythm: regular rate and regular rhythm Gastrointestinal (Abdomen): Inspection/Auscultation: abdomen not distended Percussion/Palpation: abdomen soft; abdomen nontender Musculoskeletal: Head/Neck/Chest: normocephalic and head atraumatic negative for edema, peripheral pulses intact Skin: no rashes, warm and dry Neurologic: awake; not confused Speech / Cognition: normal speech Psychiatric: A+Ox3, euthymic affect Results & Data Results & Data ([facility]) Vital Signs (Past 12 Hours) Vital Signs Temp Pulse Resp BP Pulse Ox 09/17/19 07:24 36.9 C 86 18 116/70 97 09/17/19 04:43 37.1 C 83 18 145/91 H 95 09/17/19 03:30 86 18 139/88 96 PG Care Time/CCT Total # of Minutes Spent Total Time Spent with Patient: Total time spent is greater than 50% in coordination of care (as documented) at patient's floor/unit and/or counseling patient: Coding Level of Care Code 27475 Subseq Hosp Care Lvl 3 Diagnoses Hyperglycemia R73.9 Abdominal pain R10.84 Abdominal location: generalized Anxiety F41.9 Hypothyroidism E03.9 Hypothyroidism type: unspecified (1) Abdominal pain Abdominal location: generalized Qualified Code(s): R10.84 - Generalized abdominal pain (2) Hypothyroidism Hypothyroidism type: unspecified Qualified Code(s): E03.9 - Hypothyroidism, unspecified
[2019-09-17] MEDS: KETOROLAC 30 MG/ML VIAL IV PRN ×2 (16:39→23:35)
[2019-09-18] MEDS: INSULIN ASPART 100 UNITS/ML 3 ML PEN SC SCH ×6 (03:48→23:34)
[2019-09-18] MEDS: LEVOTHYROXINE SODIUM 50 MCG TABLET PO SCH (05:34)
[2019-09-18] MEDS: LORATADINE 10 MG TAB PO SCH (08:21)
[2019-09-18] MEDS: BusPIRone 15 MG TAB PO SCH ×2 (08:21→20:51)
[2019-09-18] MEDS: INSULIN GLARGINE SOLOSTAR 100 UNITS/ML 3 ML PEN SQ SCH ×2 (08:22→20:50)
[2019-09-18] MEDS: ENOXAPARIN INJ 40 MG/0.4 ML SYR SQ SCH (08:22)
[2019-09-18 09:24] LABS: Hematocrit (blood only) 35.6 % (37-47); Hemoglobin 11.5 g/dL (12.0-16.0); Mean Corpuscular Hemoglobin 27.6 pg (25-34); Mean Corpuscular Hgb Conc 32.3 g/dL (32-36); Mean Corpuscular Volume 85.4 fL (80-100); Mean Platelet Volume 11.6 fL (7.4-10.4); Platelet Count 244 K/uL (130-400); RDW Coefficient of Variation 12.9 % (11.5-14.5); RDW Standard Deviation 39.7 fL (36.4-46.3); Red Blood Count 4.17 M/uL (4.2-5.4); White Blood Count 5.01 K/uL (4.8-10.8)
[2019-09-18 09:44] LABS: BUN Creatinine Ratio 21.1 (10-20); Calcium 7.5 mg/dl (8.5-10.1); Creatinine Clr Calc Pharmacy 168.4 ml/min; Est GFR (Non-African American) 123.4; Potassium 3.5 mmol/L (3.5-5.1)
[2019-09-18 09:53] LABS: Thyroid Stimulating Hormone 0.995 uIu/ml (0.300-4.500)
[2019-09-18] MEDS: KETOROLAC 30 MG/ML VIAL IV PRN ×2 (11:35→21:56)
--- NOTE | 2019-09-18 12:59 | Hospitalist Progress Note ---
Date of Service September 18, 2019 Assessment & Plan (1) Constipation: CT abd/pelvis at admission with mildly dilated loops of small bowel. Clinical picture was not c/w SBO but perhaps ileus vs obstipation. She has had no further vomiting. abdominal x-rays today with COPIOUS stool especially in the transverse colon and distal colon/rectal region. no ileus or obstruction on x-rays. milk of mag and dulcolax suppos x 1 without any results. plan - restart IV fluids. clear liquid diet as tolerated. senna x 2 tabs now. miralax x 5 doses q1h. if no improvement with such then consider go-lytely prep in am and/or repeat CT abd/pelvis with contrast. LFTs noted to be normal this admission. will repeat a lipase in am to be complete. avoid narcotics if possible. (2) Abdominal pain: see discussion above (3) Diabetes mellitus type 2 with complications, uncontrolled: improved cont lantus 30 units BID cont novolog ac/hs uncertain why she is not on metformin - will d/w patient tomorrow (4) Hypothyroidism: TSH wnl cont synthroid (5) Morbid obesity with BMI of 40.0-44.9, adult: BMI 42 (6) Anxiety: cont home meds (7) DVT prophylaxis: lovenox Admission and Anticipated Discharge Date Admission Date: September 17, 2019 Subjective patient c/o generalized abdominal pain - worst around the umbilical region. crampy, stabbing - having to use pain meds for such. in the last 10 days has only had 1 small bowel movement. usually stools daily. passing little flatus. able to keep liquids down but this makes abdominal pain worse. no unusual vaginal bleeding or discharge. denies vomiting. no fevers or chills. Review of Systems Constitutional: no fever Respiratory: no cough and no dyspnea Cardiovascular: no chest pain Gastrointestinal: + constipation; no diarrhea/loose stools and no blood in stools Genitourinary: no dysuria Physical Exam Constitutional: + morbidly obese; no acute distress and no altered mental status ENMT: external ear and nose normal, oropharynx normal Respiratory: normal respiratory effort, lungs clear to auscultation Cardiovascular: Rate/Rhythm: regular rate and regular rhythm Heart Sounds: normal S1 and normal S2; no murmur Vessels: posterior tibial pulses present and dorsalis pedis pulses present; no JVD Extremities: no edema Gastrointestinal (Abdomen): Inspection/Auscultation: normal bowel sounds; abdomen not distended Percussion/Palpation: + abdomen tender, abdomen soft and + hepatomegaly; no guarding, abdomen not rigid, no splenomegaly and no hernia Skin: no rashes, warm and dry Psychiatric: Orientation: alert and oriented x 3 Results & Data Results & Data ([facility]) Vital Signs (Past 12 Hours) Vital Signs Temp Pulse Resp BP Pulse Ox 09/18/19 07:11 36.6 C 76 18 118/77 94 Laboratory Results Laboratory Results - last 24 hr 09/17/19 09/17/19 09/17/19 16:28 20:17 23:41 WBC RBC Hgb Hct MCV MCH MCHC RDW Std Deviation RDW Coeff of Batsheva Plt Count MPV Sodium Potassium Chloride Carbon Dioxide Anion Gap BUN Creatinine Est Cr Clr Drug Dosing Est GFR ( Amer) Est GFR (Non-Af Amer) BUN/Creatinine Ratio Glucose POC Glucose 278 H 145 H 129 H Calcium TSH 09/18/19 09/18/19 09/18/19 03:47 07:33 08:56 WBC 5.01 RBC 4.17 L Hgb 11.5 L Hct 35.6 L MCV 85.4 MCH 27.6 MCHC 32.3 RDW Std Deviation 39.7 RDW Coeff of Batsheva 12.9 Plt Count 244 MPV 11.6 H Sodium Potassium Chloride Carbon Dioxide Anion Gap BUN Creatinine Est Cr Clr Drug Dosing Est GFR ( Amer) Est GFR (Non-Af Amer) BUN/Creatinine Ratio Glucose POC Glucose 120 H 133 H Calcium TSH 09/18/19 09/18/19 08:56 11:30 WBC RBC Hgb Hct MCV MCH MCHC RDW Std Deviation RDW Coeff of Batsheva Plt Count MPV Sodium 142 D Potassium 3.5 D Chloride 113 H Carbon Dioxide 24 Anion Gap 5.0 BUN 13 Creatinine 0.61 D Est Cr Clr Drug Dosing 168.4 Est GFR ( Amer) 143.0 Est GFR (Non-Af Amer) 123.4 BUN/Creatinine Ratio 21.1 H Glucose 136 H POC Glucose 150 H Calcium 7.5 L D TSH 0.995 PG Care Time/CCT Total # of Minutes Spent Total Time Spent with Patient: Total time spent is greater than 50% in coordination of care (as documented) at patient's floor/unit and/or counseling patient: Coding Level of Care Code 95488 Subseq Hosp Care Lvl 2 Diagnoses Constipation K59.09 Constipation type: other constipation type Abdominal pain R10.84 Abdominal location: generalized Diabetes mellitus type 2 with complications, uncontrolled E11.8; E11.65 Hypothyroidism E03.9 Hypothyroidism type: unspecified Morbid obesity with BMI of 40.0-44.9, adult E66.01; Z68.41 Anxiety F41.9 DVT prophylaxis Z29.9 (1) Abdominal pain Abdominal location: generalized Qualified Code(s): R10.84 - Generalized abdominal pain (2) Hypothyroidism Hypothyroidism type: unspecified Qualified Code(s): E03.9 - Hypothyroidism, unspecified (3) Constipation Constipation type: other constipation type Qualified Code(s): K59.09 - Other constipation
[2019-09-18] MEDS ORDERED: bisacodyL 10 MG SUPP PR STA (14:30)
[2019-09-18] MEDS ORDERED: MAGNESIUM HYDROXIDE SUSP 30 ML UDC PO ONE (14:36)
--- NOTE | 2019-09-18 14:36 | XRay Report ---
XR abdomen 2V w PA chest CLINICAL HISTORY: ?fecal impaction/stasis? pSBO? ABDOMINAL DISTENTION COMPARISON STUDY: 09/17/2019 FINDINGS: The heart is normal in size. There is no failure. There is no focal pulmonary consolidation . There are no pleural effusions. There is no free intraperitoneal air. There are no abnormally dilat ed loops of large or small bowel. There is moderate fecal retention. IMPRESSION: 1. No evidence of bowel obstruction. No evidence of free air 2. No active disease in the chest 3. Moderate fecal retention ACT 112: Negative or not required by law. Electronically signed by: Rolo Gregory M.D. 09/18/2019 2:34 PM
[2019-09-18] MEDS: NSS + 20MEQ KCL 20 MEQ/1,000 ML BAG IV SCH ×2 (15:26→23:32)
[2019-09-18] MEDS ORDERED: SENNA 8.6 MG TAB PO ONE (17:30)
[2019-09-18] MEDS: POLYETHYLENE (MIRALAX) 17 GM PACK PO SCH ×5 (17:35→21:52)
[2019-09-19] MEDS: INSULIN ASPART 100 UNITS/ML 3 ML PEN SC SCH ×3 (03:06→12:39)
[2019-09-19] MEDS: LEVOTHYROXINE SODIUM 50 MCG TABLET PO SCH (06:07)
[2019-09-19 07:06] LABS: BUN Creatinine Ratio 15.2 (10-20); Calcium 7.7 mg/dl (8.5-10.1); Creatinine Clr Calc Pharmacy 193.8 ml/min; Est GFR (African American) 149.8; Est GFR (Non-African American) 129.2; Potassium 3.9 mmol/L (3.5-5.1)
[2019-09-19] MEDS: BusPIRone 15 MG TAB PO SCH (08:27)
[2019-09-19] MEDS: LORATADINE 10 MG TAB PO SCH (08:27)
[2019-09-19] MEDS: ENOXAPARIN INJ 40 MG/0.4 ML SYR SQ SCH (08:27)
[2019-09-19] MEDS: INSULIN GLARGINE SOLOSTAR 100 UNITS/ML 3 ML PEN SQ SCH (08:28)
[2019-09-19] MEDS: NSS + 20MEQ KCL 20 MEQ/1,000 ML BAG IV SCH (08:29)
--- NOTE | 2019-09-19 13:31 | Discharge Summary ---
Date of Service date of admission - September 17, 2019 date of discharge - September 19, 2019 Admission HPI Per Admitting Provider Rayna Ingram is a 29yo C female with history fo DM, HLP, Hypothyroidism presenting with abdominal pain, hyperglycemia. Patient's father recently due to complications from prostate cancer. Since then, Rayna hasn't been taking care of herself. She has not been checking her blood sugars or taking her medications as prescribed. This evening she had dinner around 19:30 consisting of pasta, garlic bread and coca cola after which she developed severe, diffuse crampy abdominal pain, 10/10 in severity. She took TUMS x 4 and Ranitidine with no relief. She had a large episode of emesis in the ER with improvement in abdominal pain. Now with some mild epigastric discomfort only. Patient reports some recent constipation. She had a hard BM today that was her first one in a week - typically has 2-3 BMs per day. She is passing gas but none in the last few hours. No additional complaints at this time. ER Course: Pepcid 20mg IV, Iinsulin 10u SQ, Toradol, NSS x 2 L Principal Diagnosis 1. abdominal pain likely 2nd to severe constipation - resolved 2. hyperglycemia/uncontrolled T2DM - improved Discharge Exam Constitutional + morbidly obese; no acute distress and no altered mental status ENMT external ear and nose normal, oropharynx normal Respiratory normal respiratory effort, lungs clear to auscultation Cardiovascular Rate/Rhythm: regular rate and regular rhythm Heart Sounds: normal S1 and normal S2; no murmur Vessels: posterior tibial pulses present and dorsalis pedis pulses present; no JVD Extremities: no edema Gastrointestinal (Abdomen) Inspection/Auscultation: normal bowel sounds; abdomen not distended Percussion/Palpation: abdomen soft and + hepatomegaly; abdomen nontender, no guarding, abdomen not rigid, no splenomegaly and no hernia Skin no rashes, warm and dry Psychiatric Orientation: alert and oriented x 3 Discharge Data Allergies Allergy/AdvReac Type Severity Reaction Status Date / Time No Known Allergies Allergy Verified 09/16/19 23:45 Ordered Studies 09/16/19 23:34 US gallbladder - IMPRESSION: 1. Hepatomegaly demonstrating mild fatty change. 2. Contracted gallbladder. No gallstones. 09/17/19 01:09 CT abd pelvis wo con - IMPRESSION: Multiple loops of mildly dilated fluid-filled small bowel without well-defined transition point. Mild associated mesenteric infiltration and trace ascites. The findings could reflect a partial small bowel obstruction, enteritis or ileus. Abdominal x-rays - moderate constipation; no bowel dilatation Hospital Course (1) Constipation: CT abd/pelvis at admission with mildly dilated loops of small bowel. Clinical picture was not c/w SBO but perhaps ileus vs obstipation. She had no further vomiting during the hospitalization. abdominal x-rays after admission showed COPIOUS stool especially in the transverse colon and distal colon/rectal region. no ileus or obstruction on x-rays. She received a "miralax bowel prep" along with suppositories and other oral stimulant laxatives with several stools thereafter. Her abdominal pain and constipation both resolved with such. She was tolerating a diet without any GI symptoms following the resolution of her constipation. Patient should remain on a bowel regimen post-discharge (miralax +/- senakot). (2) Abdominal pain: Likely 2nd to severe constipation - resolved. In fact, patient only had had 1 small bowel movement in the 7-10 days before a dmission. LFTs and lipase were normal. NO evidence of any infectious process of the abdomen. Clinical picture was not consistent with any pSBO or SBO. (3) Diabetes mellitus type 2 with complications, uncontrolled: improved during the stay with stable BSGs cont lantus 30 units BID cont novolog ac/hs patient openly admitted that due to several stressors over the weeks/months prior to admission she had not been compliant with diet, insulin, etc. hemoglobin a1c was 12.9% f/u with PCP for ongoing DM management (4) Hypothyroidism: TSH wnl at 0.9 cont synthroid (5) Morbid obesity with BMI of 40.0-44.9, adult: BMI 42 (6) Anxiety: cont home meds patient with multiple psychosocial stressors in her life leading up to this admission if symptoms persist consider addition of SSRI or similar agent post-discharge defer to PCP Total Time Total Time Spent Total Time Spent (In Minutes): 40 Total Time Includes: Examination of the Patient, Discharge Planning and Medication Reconciliation Discharge Plan Discharge Items Patient Disposition: Home - Self-Care Reason For Visit: HYPERGLYCEMIA Discharge Diagnosis: 1. hyperglycemia (high blood sugars) - MUCH improved 2. severe constipation leading to abdominal pain - resolved Activity: Resume your previous activity Non-emergency contact: Primary Care Provider Call non-emergency contact if: you have any medication questions, your symptoms worsen, your pain is not controlled, your pain is worsening, your pain is unusual for you, your pain is concerning for you and you have a fever Follow-up/Referrals: Oren Patton MD [Primary Care Provider] - 09/24/19 2:15 pm (see Dr Patton within 1 week ) Diet: Carb Consistent or DM2 Addtl Attending Provider Instructions: You were treated for uncontrolled diabetes as well as abdominal pain. The abdominal pain was likely due to severe constipation as your symptoms resolved with multiple doses of laxatives. The recent stress of the loss of your father coupled with your abdominal pain may have caused your sugars to go high at home. Recommendations - 1. type 2 diabetes - * please take lantus 30 units twice a day - first dose tonight at bedtime * you may need a higher dose of lantus (example - 35 units twice a day) if your MORNING BLOOD SUGAR continues to run higher than 125 consistently over the next few days * please use your short-acting insulin with meals, 15-20 units each time * check your blood sugars at least 3-4 times each day 2. diet - right now you are on full liquid diet. This includes all liquids - juices, jello, milk, coffee, tea, chicken broth, cream-based soups, yogurt, etc. Late tonight you can gradually reintroduce solids back into your diet. Stay away from fried foods, fast foods, etc. 3. constipation - for prevention and treatment take - * vvan-ovv-djzhiul miralax (glycolax) 1 serving daily * if you need additional help with constipation you can also take senna (senakot) 2 tablets daily * I would do the miralax for a minimum of 2-3 weeks Follow-up - see your family doctor within 1 week Return to [facility] if - * you have fevers over 100.4 degrees * you have recurrent abdominal pains * you have worsening nausea and/or vomiting * you develop severe constipation * any other concerns My condolences for the loss of your father, Please stay well, Dr Valdes Pending Studies at Discharge: No Stand-Alone Forms: My [facility], Smoking Cessation Medications and DC Order Prescriptions: New polyethylene glycol 3350 [Miralax] 17 gram powder in packet 17 gm PO DAILY Qty: 30 RF: 1 Continued loratadine [Allergy Relief (loratadine)] 10 mg tablet 10 mg PO QAM Qty: 30 RF: 5 (DME) pen needle, diabetic [BD Ultra-Fine Iza Pen Needle] 32 gauge x 5/32" needle See Rx Instructions .ROUTE .MEDSUPPLY Qty: 500 RF: 3 buspirone 15 mg tablet 15 mg PO BID Qty: 60 RF: 3 levothyroxine 50 mcg tablet 50 mcg PO QAM Qty: 30 RF: 0 (DME) insulin syringe-needle U-100 [BD Insulin Syringe Ultra-Fine] 1 mL 31 gauge x 5/16 syringe See Dose Instructions [id number] .MEDSUPPLY RF: 0 (DME) Dexcom G6 Sensor Device See Rx Instructions .ROUTE .MEDSUPPLY Qty: 3 RF: 0 multivitamin Tablet,Chewable 1 tab PO QAM RF: 0 Changed insulin lispro [Admelog SoloStar U-100 Insulin] 100 unit/mL insulin pen 15 - 20 units subcut AC Qty: 0 RF: 0 Basaglar KwikPen U-100 Insulin 100 unit/mL (3 mL) insulin pen 30 units SQ BID 90 Days Qty: 108 RF: 3 No Action (DME) blood sugar diagnostic [Accu-Chek Kaila Plus test strp] Strip See Rx Instructions .ROUTE .MEDSUPPLY Qty: 150 RF: 6 (DME) lancets 33 gauge misc See Rx Instructions .ROUTE .MEDSUPPLY Qty: 150 RF: 6 Discharge Orders: Discharge Order (Routine); Ordered 09/19/19 Ordered By: Deng García/Other Patient Handouts: Diabetes and Heart Disease, Diabetes Set Painter Complications, Diabetes Healthy Meals, Diabetes Exercise Benefits, Diabetes Manage A1C Test Admission Data Admit Date/Time: 09/17/19 03:25 Attending Provider: Deng Valdes Admit Provider: Massiel Gomez Primary Care Provider: Oren Patton Other Providers: Massiel Gomez Other Interventions: Discharge Summary Assessment (RN) Last Done: 09/19/19 13:16 DC Date/Time DO NOT enter until pt leaves facility: 09/19/19 14:18 Coding Level of Care Code D/C Day Management >30 mins Diagnoses Constipation K59.09 Constipation type: other constipation type Abdominal pain R10.84 Abdominal location: generalized Diabetes mellitus type 2 with complications, uncontrolled E11.8; E11.65 Hypothyroidism E03.9 Hypothyroidism type: unspecified Morbid obesity with BMI of 40.0-44.9, adult E66.01; Z68.41 Anxiety F41.9
== END 2019-09-19 14:18 | disposition home or self-care (01) ==
LOC: ED 23:17 → SUATTDRO 09-17 03:25 → 2N 09-17 03:25 → INTOOBSV 09-17 03:25 → 2N 09-17 03:52

== ENCOUNTER 2022-09-10 14:21 | Observation (INO) ==
[2022-09-10] MEDS ORDERED: ACETAMINOPHEN 500 MG TAB PO ONE (14:47)
--- NOTE | 2022-09-10 14:49 | Obstetrical Progress Note ---
Date of Service September 10, 2022 Assessment & Plan (1) Chronic hypertension affecting : (2) with 34 completed weeks gestation: Plan First blood pressure with incorrect cuff. This was a large cuff, but actually needs a thigh cuff. Better with this cuff. Check labs and urine. Treat graves with tylenol. Monitor. Difficulty tracing fetus while sitting taking blood pressures. Patient had a reactive nst in the office. No labor symptoms. Subjective Patient is a 32yowf with iup at 34 1/7 weeks who presents to labor and delivery from the clinic for monitoring for elevated BP in the office, new graves and increased swelling. Patient has multiple medical issues including CHTN on Nifedipine, uncontolled diabetes, hx of c/s x 2. Patient presented for her normal visit and bp was 144/88. She normally runs in the 130s/80s. Has +1 protein in urine today. She notes she had onset of a graves today. She notes it is over her whole head. Notes was able to continue to do activities today. Notes trying to stay hydrated. Notes she took her BP meds this am. Has not taken anything for the GRAVES. Also notes she is a little more swollen today. no vision changes. no n/v , no ruq pain. Physical Exam Physical Exam: cx--deferred toco--none efm--130s with mod variability dtrs--barely can ilicit +1/2 ext--+1-2 edema, not tender, no redness abd--obese, soft, gravid Results & Data Vital Signs (Past 12 Hours) Vital Signs Pulse BP 09/10/22 14:42 97 H 147/80 H 09/10/22 14:34 99 H 160/100 H PG Care Time/CCT Total # of Minutes Spent Total Time Spent with Patient: Total time spent is greater than 50% in coordination of care (as documented) at patient's floor/unit and/or counseling patient: Coding Level of Care Code None Diagnoses Chronic hypertension affecting O10.919 with 34 completed weeks gestation Z3A.34
[2022-09-10 15:10] LABS: Basophils # (auto) 0.07 K/uL (0-0.2); Basophils % (auto) 0.6 %; Eosinophils # (auto) 0.12 K/uL (0-0.50); Eosinophils % (auto) 1.1 %; Hematocrit (blood only) 36.7 % (37.0-47.0); Hemoglobin 12.3 g/dl (12.0-16.0); Immature Granulocytes # (auto) 0.04 K/uL (0.01-0.20); Immature Granulocytes % (auto) 0.4 %; Lymphocytes # (auto) 2.59 K/uL (1.2-3.4); Lymphocytes % (auto) 23.9 %; Mean Corpuscular Hemoglobin 27.6 pg (25.0-34.0); Mean Corpuscular Hgb Conc 33.5 g/dL (32.0-36.0); Mean Corpuscular Volume 82.3 fL (80.0-100.0); Mean Platelet Volume 12.3 fL (9.4-12.4); Monocytes # (auto) 0.58 K/uL (0.11-0.59); Monocytes % (auto) 5.4 %; Neutrophils # (auto) 7.44 K/uL (1.40-6.50); Neutrophils % (auto) 68.6 %; Platelet Count 319 K/uL (130-400); RDW Coefficient of Variation 12.8 % (11.5-14.5); RDW Standard Deviation 38.5 fL (36.4-46.3); Red Blood Count 4.46 M/uL (4.20-5.40); White Blood Count 10.84 K/ul (4.8-10.8)
[2022-09-10 15:24] LABS: Albumin Globulin Ratio 0.8 (0.9-2); Albumin Level 3.2 gm/dl (3.4-5.0); BUN Creatinine Ratio 22.8 (10-20); Bilirubin,Total 0.2 mg/dl (0.2-1.0); Calcium 9.1 mg/dl (8.6-10.3); Est GFR (African American) 115.6 ml/min; Est GFR (Non-African American) 99.8 ml/min; Globulin 3.9 gm/dl (2.5-4.0); Potassium 4.2 mmol/L (3.5-5.1); Total Protein 7.1 gm/dl (6.0-8.3)
[2022-09-10 16:15] LABS: Total Protein Urine Random 31.1 mg/dl (0-11.9)
[2022-09-10 16:21] LABS: Protein Creatinine Ratio Urine 0.3 (0-0.2)
--- NOTE | 2022-09-10 16:52 | History & Physical Report ---
Date of Service September 10, 2022 Assessment & Plan (1) Chronic hypertension affecting : (2) Controlled type 2 diabetes mellitus, with long-term current use of insulin: (3) with 34 completed weeks gestation: Plan Labs are normal, p/c ratio 0.3, fetus category one. Unfortunately BPs are a bit labile. Has had one severe blood pressure of 168/67. Started monitoring blood pressures around 1:30pm. Discussed the case with Dr. Maier with [facility] MFM. difficult to tell if this is a chtn exacerbation or onset of pet. Plan to monitor at least overnight and see how she does. If she has more severe level blood pressures 4 hours apart, or develops any other severe symtpoms, will call back [facility] and likely will transfer for evaluation in case of needing to be delivered. Will give steroids now because of concern for need for delivery soon. Fetus is overall reassuring, but difficult to monitor secondary to patient habitus. Will monitor closely. Explained to the patient and her who express understanding. History of Present Illness Chief Complaint: elevated blood pressures Primary Care Provider: Oren Patton MD Patient is a 32yowf with iup of 34 1/7 weeks. She came to her ob appt today noting she had a gonzalez that started today 4/10 and some increased swelling. Her pressure was a little high for her in the office and so she was sent over for evaluation and labs. Patient denies other s/s of pet. Patient notes that her Nifedipine was increased from 75-90mg yesterday by her manager therapy as she was having some slightly higher blood pressures at home and had some chest pressure yesterday. She notes no chest pressure or pain today. Patient notes her blood sugars have been running in the 200s for the most part which is her normal. Her most recent A1C was 7.9 in 08/2021. Patient received tylenol and now her gonzalez is 1/10, barely there at all. Blood pressures here have been slighly elevated for her but not in the severe range. she had on pressure of 168/67. Her labs today are normal. Had a 24 hr urine 04/2022 of 163mg. Had p/c ratio today of 0.3. and Delivery Plans Previous x2 Schedule RCS at 28wk visit C/S SCHEDULED FOR 10/11/[address] RANDALL AND DR. MALDONADO ASSIST CHTN - on Nifedipine ER 30mg daily pre-preg, to continue *Baby ASA daily start 12-28 wks, continue until delivery *wkly NST's @32wks and twice wkly @36 wks *Serial Growth US @ 24 (doppler only if abnml) -First growth scan tbd at [facility] 07/16/22 with f/u anatomy *Baseline 24hr urine (additioinal PRN) -04/30 163.6 *weekly ROLO's @ 32wk(if on meds) *Deliver [id number] [facility] consult for Multiple Medical Concerns *[facility] consult (03/23/22 @ [facility]) DM Protocol *Baby ASA daily, start 12-28wks, continue until del *Ophthalmology consult *Dietary consult *Qmonthly urine cultures * [id number] Anatomy and echo normal *Twice weekly NST's @32 *Serial Growth US starting 28wks *Baseline 24hr Urine and Q trimester-04/30 163.6 *EKG (Cardio [id number]) *Deliver by EDC Obesity (BMI 40 and higher @ beginning of ) *Growth US @ 32wks *Weekly NSTs @ 34wks *BMI 40 or greater offer detailed/level II anatomy at [facility] *Anatomy and Echo scheduled with [facility] on 06/16/22 - Per Dr. Bryan on 03/02/22: Was on Aldactone early High risk for coronary disease Hypothyroid *Check TFTs Q4wks Rubella equivocal-offer MMR pp Polyhydramnios - Resolved at 30W, return at 33wks *Weekly NSTs @ Dx *Weekly AFIs @ Dx *If pocket >16 refer to [facility] *Deliver between [id number] OB Labs: Blood Type A Positive 03/10/22 Antibody Screen NEGATIVE 03/10/22 Hemoglobin 11.5 g/dl (12.0-16.0) L 08/30/22 Hematocrit 35.1 % (37.0-47.0) L 08/30/22 Mean Corpuscular Volume 84.4 fL (80.0-100.0) 08/30/22 Platelet Count 283 K/uL (130-400) 08/30/22 Rubella IgG Antibody Equivocal (Immune) L 03/10/22 Rapid Plasma Reagin Nonreactive (Nonreactive) 03/10/22 Hepatitis B Surface Antigen Neg (Neg) 07/13/18 Hepatitis B Surface Antigen. NON-REACTIVE (NON-REACTIVE) 03/10/22 Hepatitis C Antibody Neg (Neg) 03/27/18 Hepatitis C Antibody (EIA) NON-REACTIVE (NON-REACTIVE) 03/10/22 HIV (1&2) Ab and P24 Ag, 4th Gener Neg (Neg) 07/13/18 HIV (1&2) Ag and Ab Confirmation NON-REACTIVE (NON-REACTIVE) 03/10/22 Maternal Serum Alpha Fetoprotein 15.1 ng/mL 05/03/22 OB Optional Labs: Chlamydia trachomatis RNA Not Detected (NotDetected) 03/10/22 Neisseria gonorrhoeae RNA Not Detected (NotDetected) 03/10/22 Thyroid Stimulating Hormone (TSH) 1.620 uIu/ml (0.300-4.500) 08/10/22 Alpha Fetoprotein Triple Screen SEE NOTE 05/03/22 low risk panorama. neg afp Allergies Allergy/AdvReac Type Severity Reaction Status Date / Time No Known Allergies Allergy Verified 09/10/22 12:50 Home Medications Medication Instructions Recorded Confirmed Type blood-glucose sensor (Dexcom G6 #3 ea 04/26/19 09/10/22 History Sensor device) prenat.vits,brittanie,[id number]-mwjwn 1 tab PO DAILY 02/26/22 09/10/22 History blood pressure test kit-large #1 ea 03/01/22 09/10/22 Rx Omnipod 5 G6 Intro Kit (Gen 5) #1 ea 03/15/22 09/10/22 Rx subcutaneous cartridge with controller (insulin pump cart,auto,BT-cntr) [employer] Verio test strips (blood #200 ea 04/15/22 09/10/22 Rx sugar diagnostic) lancets 30 gauge (OneTouch Delica #200 ea 04/15/22 09/10/22 Rx Lancets) cholecalciferol (vitamin D3) 50 4,000 unit PO DAILY 05/03/22 09/10/22 History mcg (2,000 unit) capsule insulin glargine 100 unit/mL (3 50 unit subcut BID 06/09/22 09/10/22 History mL) subcutaneous pen (Lantus Solostar U-100 Insulin) breast pump #1 ea 06/17/22 09/10/22 Rx fluticasone propionate 50 1 spray intranasal DAILY #16 grams 07/06/22 09/10/22 Rx mcg/actuation nasal spray,suspension (Flonase Allergy Relief) blood-glucose meter (OneTouch 07/13/22 09/10/22 History Verio Meter) docusate sodium 100 mg capsule 100 mg PO DAILY PRN Constipation 07/13/22 09/10/22 History (Colace) levothyroxine 175 mcg tablet 175 mcg PO DAILY #30 tabs 07/13/22 09/10/22 Rx nifedipine 60 mg tablet,extended 60 mg PO DAILY #30 tabs 07/13/22 09/10/22 Rx release 24 hr pen needle, diabetic 32 gauge x #500 ea 07/13/22 09/10/22 Rx 5/32" (BD Ultra-Fine Iza Pen Needle) omeprazole 20 mg capsule,delayed 40 mg PO QAM #90 caps 08/10/22 09/10/22 Rx release insulin aspart U-100 100 unit/mL See Rx Instructions subcut 08/13/22 09/10/22 Rx (3 mL) subcutaneous pen .COMPLEX #26 syringes Omnipod 5 G6 Pods (Gen 5) (insulin #30 ea 08/27/22 09/10/22 Rx pump cart,automated,BT) loratadine 10 mg tablet (Allergy 10 mg PO QAM PRN Allergy Symptoms 09/10/22 09/10/22 History Relief (loratadine)) nifedipine 30 mg tablet,extended 90 mg PO DAILY 09/10/22 09/10/22 History release omeprazole 40 mg capsule,delayed 40 mg PO DAILY 09/10/22 09/10/22 History release Patient History Medical History (Updated 09/10/22 @ 16:56 by Nafisa Carlos MD, FACOG) Acid reflux Anxiety Background diabetic retinopathy associated with type 1 diabetes mellitus Chronic constipation Chronic hypertension affecting Controlled type 2 diabetes mellitus, with long-term current use of insulin Depression Diabetic nephropathy associated with type 1 diabetes mellitus Fatty infiltration of liver liver ultrasound 09/16/2019 Hidradenitis suppurativa History of pre-eclampsia Hypertension Hypothyroidism Morbid obesity Trigger finger Left 5th finger Surgical History H/O section 12/09/2014 2/2 distress; "good pain control" with SAB perioperatively H/O sinus surgery 2006 H/O tooth extraction top 2 wisdom teeth-2010 History of gynecologic surgery CO2 laser ablation of vulvar lesion History of hand surgery left for trigger finger History of tonsillectomy as a child S/P carpal tunnel release HX RIGHT. 06/27/2019 done at [facility]. ASA 3. sedation without issue. No issues. Family History Mother Diabetes Anxiety Heart disease Hyperlipidemia Myocardial infarction Lung disease Hypertension Father Diabetes Anxiety Heart disease Myocardial infarction Multiple sclerosis Lung disease Cancer Hypertension Prostate cancer Grandmother (Maternal) Ovarian cancer Cancer Sister Diabetes Grandmother (Paternal) Transient ischemic attack (TIA) Other Colorectal cancer Denies family history of Breast cancer Social History Smoking Status: Never smoker Second Hand Exposure: Yes (Parents smoked); Do You Dip or Chew Tobacco: No; Tobacco Cessation Education Requested by Patient: No Hx Alcohol Use: No Hx Substance Use: No Preferred Language: [place] Communication Ability: Effective Visual Impairment: No Limitations Hearing Ability: Normal Dredge Operator Required: No Beliefs That Will Affect Care: None marital status: marital status details: Tiago Jarvis (27) [phone] Current Living Situation: Spouse and Family Current Living Situation Comment: lives with spouse and 2 kids. no pets current occupational status: other current occupation: Homemaker Feels Safe at Home: Yes Safety Concerns: Feels Safe At This Time caffeine: Yes Dental Care, Regularly: Yes Physical Activity Frequency: Does not Exercise Seatbelt Use: always Assistive Devices: None OB History Past Pregnancies Del. Date GA wks Lbr Lgth wt Sex Type del Anes Place Del Prov ? Comment 12/09/14 37 8lb 14oz M Spinal [facility] Dr. Yeung No Pre eclampsia 01/19/19 37 10lb 5.8oz M C-Secti on Spinal [facility] [place] 12/13/19 11 Aborted-Spontaneous [employer] History noncontributory Physical Exam Constitutional: WD/WN, vitals as above Cardiovascular: Rate/Rhythm: regular rate and regular rhythm Extremities: + edema (+2); no calf tenderness Gastrointestinal (Abdomen): obese, soft, nt, gravid, no ruq tenderness Psychiatric: A+Ox3, euthymic affect Genitourinary: cx-- deferred toco--none efm--130s wtih mod variability, reactive nst in the office today. difficult tracing because of bodyy habitus Results & Data Vital Signs (Past 12 Hours) Vital Signs Temp Pulse Resp BP 09/10/22 15:10 36.8 C 18 141/64 H 09/10/22 16:32 90 146/70 H 09/10/22 16:18 90 141/71 H 09/10/22 16:02 98 H 140/78 09/10/22 15:53 108 H 146/87 H 09/10/22 15:43 100 H 146/74 H 09/10/22 15:32 108 H 151/71 H 09/10/22 15:22 103 H 168/67 H 09/10/22 15:12 111 H 166/70 H 09/10/22 15:02 121 H 154/64 H 09/10/22 14:52 108 H 141/64 H 09/10/22 14:42 97 H 147/80 H 09/10/22 14:34 99 H 160/100 H Coding Level of Care Code None Diagnoses Chronic hypertension affecting O10.919 Controlled type 2 diabetes mellitus, with long-term current use of insulin E11.9; Z79.4 with 34 completed weeks gestation Z3A.34
[2022-09-10] MEDS ORDERED: BETAMETH SOD PHOS/ACETATE IA 6 MG/ML IM STA (17:08)
--- NOTE | 2022-09-10 21:17 | Obstetrical Progress Note ---
Date of Service September 10, 2022 Assessment & Plan (1) Chronic hypertension affecting : Plan Pressures are remaining in mild range. No further severe pressures. Fetus category one with reactive nst. Plan to d/c monitoring overnight as baby has been reassuring and very active. Admission and Anticipated Discharge Date Admission Date: September 10, 2022 Subjective Feels well. Feeling better after dinner and shower. GRAVES resolved. Managing her BS as she would at home. no s/s of pet. Physical Exam Physical Exam: bps 130s-150s/70-80 Results & Data Vital Signs (Past 12 Hours) Vital Signs Temp Pulse Resp BP 09/10/22 19:15 36.8 C 18 09/10/22 15:10 36.8 C 18 141/64 H 09/10/22 21:09 88 132/69 09/10/22 19:51 88 138/73 09/10/22 18:32 82 151/83 H 09/10/22 17:32 88 158/83 H 09/10/22 17:17 91 H 151/86 H 09/10/22 17:03 103 H 151/91 H 09/10/22 16:48 93 H 151/79 H 09/10/22 16:32 90 146/70 H 09/10/22 16:18 90 141/71 H 09/10/22 16:02 98 H 140/78 09/10/22 15:53 108 H 146/87 H 09/10/22 15:43 100 H 146/74 H 09/10/22 15:32 108 H 151/71 H 09/10/22 15:22 103 H 168/67 H 09/10/22 15:12 111 H 166/70 H 09/10/22 15:02 121 H 154/64 H 09/10/22 14:52 108 H 141/64 H 09/10/22 14:42 97 H 147/80 H 09/10/22 14:34 99 H 160/100 H PG Care Time/CCT Total # of Minutes Spent Total Time Spent with Patient: Total time spent is greater than 50% in coordination of care (as documented) at patient's floor/unit and/or counseling patient: Coding Level of Care Code 51079 SUB INP/OBS CARE 05/05MIN Diagnoses Chronic hypertension affecting O10.919
--- NOTE | 2022-09-11 07:34 | Obstetrical Progress Note ---
Date of Service September 11, 2022 Assessment & Plan (1) Chronic hypertension affecting : (2) Diabetes mellitus affecting : Plan Pressures have actually been pretty good overnight. RNST. Plan nst this am. Will get her meds at 8am. Will then get some blood pressures when more active and sitting. If they are good, plan d/c home with continued same plan and f/u in the office on Tuesday with me. If pressures concerning, may need to consider transfer to tertiary care center. Is due for her second dose of steriods at 5pm tonight. Admission and Anticipated Discharge Date Admission Date: September 10, 2022 Subjective Patient slept overnight. Currently sleeping and I did not wake the patient. She had resolution of her gonzalez yesterday with tylenol and diet. tolerating a regular diet and managing her own BS/pump. She has no s/s of pet. no s/s of labor Physical Exam Constitutional: WD/WN, vitals as above Respiratory: normal respiratory effort Cardiovascular: Rate/Rhythm: regular rate Extremities: + edema (+1-2); no calf tenderness Results & Data Vital Signs (Past 12 Hours) Vital Signs Temp Pulse Resp BP 09/11/22 07:10 85 127/56 L 09/11/22 06:10 88 139/83 09/11/22 05:10 85 130/89 09/11/22 04:10 85 120/55 L 09/11/22 03:08 16 09/11/22 03:08 36.8 C 16 09/11/22 03:10 85 139/65 09/11/22 02:10 87 149/68 H 09/11/22 01:12 85 139/72 09/11/22 00:10 88 127/62 09/10/22 23:10 88 148/70 H 09/10/22 22:10 36.8 C 84 18 139/66 09/10/22 21:09 88 132/69 09/10/22 19:51 88 138/73 PG Care Time/CCT Total # of Minutes Spent Total Time Spent with Patient: Total time spent is greater than 50% in coordination of care (as documented) at patient's floor/unit and/or counseling patient: Coding Level of Care Code 54499 SUB INP/OBS CARE 25MIN Diagnoses Chronic hypertension affecting O10.919 Diabetes mellitus affecting O24.919
[2022-09-11] MEDS ORDERED: LEVOTHYROXINE SODIUM 175 MCG TABLET PO SCH (08:00)
[2022-09-11] MEDS ORDERED: NIFEdipine EXTENDED REL 30 MG TABCR PO SCH (09:00)
[2022-09-12] MEDS ORDERED: LEVOTHYROXINE SODIUM 175 MCG TABLET PO SCH (06:30)
== END 2022-09-11 11:15 | disposition home or self-care (01) ==
LOC: 4S1 14:21 → OPB 14:21 → 4S1 14:22

== ENCOUNTER 2022-10-01 05:41 | Inpatient (IN) ==
--- NOTE | 2022-09-28 09:39 | Anesthesiology Consultation ---
Date of Service September 28, 2022 Assessment & Plan (1) Encounter for pre-operative examination: Chart Review Chart Review: administrative assistant data entry initiated -COVID screening: Per PAT nursing assessment on 09/28/22. No known COVID-19 positive contacts or current COVID-19 related symptoms. Travel screen negative. Patient vaccinated for Covid. At surgeon discretion if preop Covid testing being done. Per OB note 09/22/2022 = previous history of x2. Plan for repeat C- section. Chronic hypertensionon nifedipine daily prepregnancypatient continuing. Got betamethasone September 2022no superimposed preeclampsia. Preeclampsia/gestational hypertensionOB following. Diabetes protocol. Obesitygetting weekly NSTs. Hypothyroidism. Polyhydramniosresolved at 30 weeksreturn at 33 weeks. ECHO 06/16/22= echocardiogram performed at 23 weeks gestation. heart appears structurally normal. Normal biventricular systolic function. History Surgery Operation Date: 10/04/22 07:30 Proposed Procedures p Section (Delivery of Baby Through Abdominal Incision) - Nafisa Carlos MD, FACOG Height/Weight Height: 5 ft 4.5 in Weight: 142.428 kg Allergies Allergy/AdvReac Type Severity Reaction Status Date / Time No Known Allergies Allergy Verified 09/28/22 08:18 Medications Home Medications Medication Instructions Recorded Confirmed Last Taken blood-glucose sensor (Dexcom G6 #3 ea 04/26/19 09/16/22 Unknown Sensor device) prenat.vits,brittanie,awk-aryu-undxt 1 tab PO DAILY 02/26/22 09/28/22 09/16/22 00:00 blood pressure test kit-large #1 ea 03/01/22 09/16/22 Unknown Omnipod 5 G6 Intro Kit (Gen 5) #1 ea 03/15/22 09/16/22 Unknown subcutaneous cartridge with controller (insulin pump cart,auto,BT-cntr) [employer] Verio test strips (blood #200 ea 04/15/22 09/16/22 Unknown sugar diagnostic) lancets 30 gauge (OneTouch Delica #200 ea 04/15/22 09/16/22 Unknown Lancets) cholecalciferol (vitamin D3) 50 4,000 unit PO DAILY 05/03/22 09/28/22 09/16/22 00:00 mcg (2,000 unit) capsule insulin glargine 100 unit/mL (3 50 unit subcut BID 06/09/22 09/28/22 Unknown mL) subcutaneous pen (Lantus Solostar U-100 Insulin) fluticasone propionate 50 1 spray intranasal DAILY #16 grams 07/06/22 09/28/22 09/15/22 10:00 mcg/actuation nasal spray,suspension (Flonase Allergy Relief) blood-glucose meter (OneTouch 07/13/22 09/16/22 Unknown Verio Meter) docusate sodium 100 mg capsule 100 mg PO DAILY PRN Constipation 07/13/22 09/28/22 09/13/22 08:00 (Colace) pen needle, diabetic 32 gauge x #500 ea 07/13/22 09/16/22 Unknown 5/32" (BD Ultra-Fine Iza Pen Needle) insulin aspart U-100 100 unit/mL See Rx Instructions subcut 08/13/22 09/28/22 09/16/22 08:00 (3 mL) subcutaneous pen .COMPLEX #26 syringes Omnipod 5 G6 Pods (Gen 5) (insulin #30 ea 08/27/22 09/16/22 Unknown pump cart,automated,BT) aspirin 81 mg chewable tablet 81 mg PO DAILY 09/10/22 09/28/22 09/16/22 00:00 loratadine 10 mg tablet (Allergy 10 mg PO QAM PRN Allergy Symptoms 09/10/22 09/28/22 Unknown Relief (loratadine)) nifedipine 30 mg tablet,extended 90 mg PO QAM 09/10/22 09/28/22 09/16/22 00:00 release levothyroxine 175 mcg tablet 175 mcg PO QAM 09/28/22 09/28/22 Unknown omeprazole 20 mg capsule,delayed 20 mg PO BID 09/28/22 09/28/22 Unknown release phenyleph-shark liver [address] UD PRN Pain 09/28/22 09/28/22 Unknown [id number] rectal cream Past Medical History Medical History Acid reflux Anxiety Background diabetic retinopathy associated with type 1 diabetes mellitus Chronic constipation Chronic hypertension affecting Controlled type 2 diabetes mellitus, with long-term current use of insulin Diabetic nephropathy associated with type 1 diabetes mellitus Elevated cholesterol no meds Fatty infiltration of liver liver ultrasound 09/16/2019 Hidradenitis suppurativa History of pre-eclampsia Hx of migraines Hypertension Hypothyroidism Insulin pump in place Morbid obesity Past Family History Family History Mother Diabetes Anxiety Heart disease Hyperlipidemia Myocardial infarction Lung disease Hypertension Father Prostate cancer Diabetes Anxiety Heart disease Myocardial infarction Multiple sclerosis Lung disease Cancer Hypertension Grandmother (Maternal) Ovarian cancer Cancer Sister Diabetes Grandmother (Paternal) Transient ischemic attack (TIA) Other Colorectal cancer No family history of adverse response to anesthesia Denies family history of Breast cancer Past Surgical History Surgical History H/O section x 2 H/O sinus surgery 2006 H/O tooth extraction top 2 wisdom teeth-2010 History of gynecologic surgery CO2 laser ablation of vulvar lesion History of tonsillectomy as a child S/P carpal tunnel release rt S/P trigger finger release Social History Smoking Status: Never smoker Do You Dip or Chew Tobacco: No Hx Alcohol Use: Yes Alcohol type: beer, wine and hard liquor alcohol intake frequency: holidays/special occasions only Hx Substance Use: No substance use type: does not use Lab Results Anesthesia Preop Results Results Anesthesia Widget: WBC 10.84 K/ul (4.8-10.8) H 09/10/22 Hgb 12.3 g/dl (12.0-16.0) 09/10/22 Hct 36.7 % (37.0-47.0) L 09/10/22 Plt 319 K/uL (130-400) 09/10/22 Na 135 mmol/L (136-145) L 09/10/22 K 4.2 mmol/L (3.5-5.1) 09/10/22 Cl 106 mmol/L (98-107) 09/10/22 CO2 20 mmol/L (21-32) L 09/10/22 BUN 18 mg/dl (6-23) 09/10/22 Creat 0.79 mg/dl (0.6-1.2) 09/10/22 Glucose Level 60 mg/dl (70-99(Fasting)) L 09/10/22 POC Glucose 113 mg/dl (70-99) H 09/10/22 TSH 1.620 uIu/ml (0.300-4.500) 08/10/22 HA1c 7.9 % (4.5-5.6) H 08/30/22 Testing Laboratory Results 08/30/22= URINE CULTURE: More than 3 types of organisms present, all low counts mixed verbal skin candido Electrocardiogram Date: 03/10/22 NSR at 85bpm Normal EKG per cardio
--- NOTE | 2022-09-30 17:36 | History & Physical Report ---
Date of Service September 30, 2022 Assessment & Plan (1) Pre-eclampsia added to pre-existing hypertension: Plan: Plan for delivery by . Reviewed consent in office, questions answered. Discussed risks of surgery, including risk with damage to bowel/bladder/baby/fa llopian tubes/uterus/ovaries. Will plan to proceed with repeat section. History of Present Illness Chief Complaint: preeclampsia Primary Care Provider: Oren Patton MD 32yo with EDC 10/21/22. 37w0d on 09/30/22. and Delivery Plans Previous x2 Schedule RCS at 28wk visit C/S SCHEDULED FOR 10/11/[address] RANDALL AND DR. MALDONADO ASSIST C/S RESCHEDULED FOR 10/04/[address] ALVARADO AND DR[address] RANDALL ASSIST C/S RESCHEDULED FOR 10/01/[address] ZENG AND DR. LAWRENCE ASSIST CHTN - on Nifedipine ER 30mg daily pre-preg, to continue - got betamethasone 09/10-09/11, now superimposed pre-eclampsia w/o SF by UP:C 0.3 *Baby ASA daily start 12-28 wks, continue until delivery *wkly NST's @32wks and twice wkly @36 wks *Serial Growth US @ 24 (doppler only if abnml) -First growth scan tbd at [facility] 07/16/22 with f/u anatomy *Baseline 24hr urine (additioinal PRN) -04/30 163.6 *weekly ROLO's @ 32wk(if on meds) *Deliver [id number] Preeclampsia, Gest HTN *Weekly BP chk's with Doc *Weekly CBC, LFTs *Weekly NSTs @32wks and twice wkly @36wks *Growth US Q4wks *If IUGR: ROLO w/UAD's weekly *Deliver 37-38wks *(If Gestational HTN<28wks bring to [facility]) MFM consult for Multiple Medical Concerns *[place] [facility] [place] Protocol *Baby ASA daily, start 12-28wks, continue until del *Ophthalmology consult *Dietary consult *Qmonthly urine cultures * [id number] Anatomy and echo normal *Twice weekly NST's @32 *Serial Growth US starting 28wks *Baseline 24hr Urine and Q trimester-04/30 163.6 *EKG (Cardio [id number]) *Deliver by EDC Obesity (BMI 40 and higher @ beginning of ) *Growth US @ 32wks *Weekly NSTs @ 34wks *BMI 40 or greater offer detailed/level II anatomy at [facility] *Anatomy and Echo scheduled with [facility] on 06/16/22 - Per Dr. Bryan on 03/02/22: Was on Aldactone early High risk for coronary disease Hypothyroid *Check TFTs Q4wks Rubella equivocal-offer MMR pp Polyhydramnios - Resolved at 30W, return at 33wks *Weekly NSTs @ Dx *Weekly AFIs @ Dx *If pocket >16 refer to [facility] *Deliver between [id number] Allergies Allergy/AdvReac Type Severity Reaction Status Date / Time No Known Allergies Allergy Verified 09/30/22 10:25 Home Medications Medication Instructions Recorded Confirmed Type blood-glucose sensor (Dexcom G6 #3 ea 04/26/19 09/30/22 History Sensor device) prenat.vits,brittanie,ion-vauk-repux 1 tab PO DAILY 02/26/22 09/30/22 History blood pressure test kit-large #1 ea 03/01/22 09/30/22 Rx Omnipod 5 G6 Intro Kit (Gen 5) #1 ea 03/15/22 09/30/22 Rx subcutaneous cartridge with controller (insulin pump cart,auto,BT-cntr) OneTouch Verio test strips (blood #200 ea 04/15/22 09/30/22 Rx sugar diagnostic) lancets 30 gauge (OneTouch Delica #200 ea 04/15/22 09/30/22 Rx Lancets) cholecalciferol (vitamin D3) 50 4,000 unit PO DAILY 05/03/22 09/30/22 History mcg (2,000 unit) capsule insulin glargine 100 unit/mL (3 50 unit subcut BID 06/09/22 09/30/22 History mL) subcutaneous pen (Lantus Solostar U-100 Insulin) fluticasone propionate 50 1 spray intranasal DAILY #16 grams 07/06/22 09/30/22 Rx mcg/actuation nasal spray,suspension (Flonase Allergy Relief) blood-glucose meter (OneTouch 07/13/22 09/30/22 History Verio Meter) docusate sodium 100 mg capsule 100 mg PO DAILY PRN Constipation 07/13/22 09/30/22 History (Colace) pen needle, diabetic 32 gauge x #500 ea 07/13/22 09/30/22 Rx 5/32" (BD Ultra-Fine Iza Pen Needle) insulin aspart U-100 100 unit/mL See Rx Instructions subcut 08/13/22 09/30/22 Rx (3 mL) subcutaneous pen .COMPLEX #26 syringes Omnipod 5 G6 Pods (Gen 5) (insulin #30 ea 08/27/22 09/30/22 Rx pump cart,automated,BT) aspirin 81 mg chewable tablet 81 mg PO DAILY 09/10/22 09/30/22 History loratadine 10 mg tablet (Allergy 10 mg PO QAM PRN Allergy Symptoms 09/10/22 09/30/22 History Relief (loratadine)) nifedipine 30 mg tablet,extended 90 mg PO QAM 09/10/22 09/30/22 History release omeprazole 20 mg capsule,delayed 20 mg PO BID 09/28/22 09/30/22 History release phenyleph-shark liver 1 applic SC UD PRN Pain 09/28/22 09/30/22 History aau-ujzciv-kee rectal cream levothyroxine 200 mcg tablet 200 mcg PO QAM #30 tabs 09/29/22 09/30/22 Rx Patient History Medical History Acid reflux Anxiety Background diabetic retinopathy associated with type 1 diabetes mellitus Chronic constipation Chronic hypertension affecting Controlled type 2 diabetes mellitus, with long-term current use of insulin Diabetic nephropathy associated with type 1 diabetes mellitus Elevated cholesterol no meds Fatty infiltration of liver liver ultrasound 09/16/2019 Hidradenitis suppurativa History of pre-eclampsia Hx of migraines Hypertension Hypothyroidism Insulin pump in place Morbid obesity Surgical History H/O section x 2 H/O sinus surgery 2006 H/O tooth extraction top 2 wisdom teeth-2010 History of gynecologic surgery CO2 laser ablation of vulvar lesion History of tonsillectomy as a child S/P carpal tunnel release rt S/P trigger finger release Family History Mother Diabetes Anxiety Heart disease Hyperlipidemia Myocardial infarction Lung disease Hypertension Father Prostate cancer Diabetes Anxiety Heart disease Myocardial infarction Multiple sclerosis Lung disease Cancer Hypertension Grandmother (Maternal) Ovarian cancer Cancer Sister Diabetes Grandmother (Paternal) Transient ischemic attack (TIA) Other Colorectal cancer No family history of adverse response to anesthesia Denies family history of Breast cancer Social History Smoking Status: Never smoker Second Hand Exposure: Yes (as a child); Do You Dip or Chew Tobacco: No; Hx Alcohol Use: Yes Alcohol type: beer, wine and hard liquor Hx Substance Use: No Preferred Language: [place] Communication Ability: Effective Visual Impairment: Limited Hearing Ability: Normal [employer] Infrastructure Consultant Required: No Beliefs That Will Affect Care: None marital status: marital status details: Tiago Jarvis (27) [phone] Current Living Situation: Family Current Living Situation Comment: lives with spouse and 2 kids. no pets current occupational status: other current occupation: Homemaker Feels Safe at Home: Yes caffeine: Yes Dental Care, Regularly: Yes Physical Activity Frequency: Does not Exercise Seatbelt Use: always Assistive Devices: Glasses Review of Systems All systems reviewed & are unremarkable except as noted in HPI & below Physical Exam Constitutional: WD/WN, vitals as above Respiratory: normal respiratory effort, lungs clear to auscultation no respiratory distress Cardiovascular: Rate/Rhythm: regular rate and regular rhythm Gastrointestinal (Abdomen): Inspection/Auscultation: abdomen normal to inspection Percussion/Palpation: abdomen soft; abdomen nontender Gravid. No s/s chorio or abruption. Skin: no rashes, warm and dry Psychiatric: A+Ox3, euthymic affect Coding Level of Care Code None Diagnoses Pre-eclampsia added to pre-existing hypertension O11.9
[2022-10-01] MEDS ORDERED: SODIUM CHLORIDE 0.9% 250 ML IV PRN (05:50)
[2022-10-01] MEDS ORDERED: LACTATED RINGER'S 1,000 ML IV SCH ×2 (06:00→09:45)
[2022-10-01] MEDS ORDERED: CITRIC ACID/SODIUM CITRATE 15 ML UDC PO SCH (06:00)
[2022-10-01] MEDS ORDERED: ceFAZolin 3,000 MG in DEXTROSE 5% 50 ML IV SCH (06:00)
[2022-10-01 06:13] LABS: Basophils # (auto) 0.09 K/uL (0-0.2); Basophils % (auto) 0.8 %; Eosinophils # (auto) 0.16 K/uL (0-0.50); Eosinophils % (auto) 1.4 %; Hematocrit (blood only) 36.7 % (37.0-47.0); Hemoglobin 12.4 g/dl (12.0-16.0); Immature Granulocytes # (auto) 0.05 K/uL (0.01-0.20); Immature Granulocytes % (auto) 0.4 %; Lymphocytes # (auto) 3.93 K/uL (1.2-3.4); Lymphocytes % (auto) 33.2 %; Mean Corpuscular Hemoglobin 27.3 pg (25.0-34.0); Mean Corpuscular Hgb Conc 33.8 g/dL (32.0-36.0); Mean Corpuscular Volume 80.7 fL (80.0-100.0); Mean Platelet Volume 12.6 fL (9.4-12.4); Monocytes % (auto) 4.2 %; Platelet Count 332 K/uL (130-400); RDW Standard Deviation 37.5 fL (36.4-46.3); Red Blood Count 4.55 M/uL (4.20-5.40); White Blood Count 11.83 K/ul (4.8-10.8)
[2022-10-01] MEDS ORDERED: OXYTOCIN 10 UNITS/ML VIAL ONE (06:52)
[2022-10-01] MEDS ORDERED: MoRPHine SULFATE PF 1 MG/ML 10 ML AMP/VIAL ONE (06:53)
[2022-10-01] MEDS ORDERED: fentaNYL citrate PF 100 MCG/2 ML VIAL ONE (06:53)
[2022-10-01] MEDS ORDERED: ONDANSETRON INJ 2 MG/ML 2 ML VIAL IV PRN ×2 (07:16→09:45)
[2022-10-01] MEDS ORDERED: NALBUPHINE HCL INJ 10 MG/ML AMP IV PRN (07:16)
[2022-10-01] MEDS ORDERED: NALOXONE HCL 1 MG in SODIUM CHLORIDE 0.9% 1000ML 1,000 ML IV PRN (07:16)
[2022-10-01] MEDS ORDERED: LACTATED RINGER'S 500 ML IV PRN (07:16)
[2022-10-01] MEDS ORDERED: ePHEDrine sulfate 50 MG/ML AMP IV PRN (07:16)
[2022-10-01] MEDS ORDERED: NALOXONE HCL 0.4 MG/1 ML VIAL/CARP IV PRN (07:16)
[2022-10-01] MEDS ORDERED: NALOXONE HCL 0.08 MG in SYRINGE 1.8 ML IV PRN (07:16)
[2022-10-01] MEDS ORDERED: diphenhydrAMINE 50 MG/ML VIAL IV PRN ×2 (07:16→09:45)
[2022-10-01] MEDS ORDERED: MoRPHine SULFATE PF 1 MG/ML 10 ML AMP/VIAL INT SPINAL ONE (07:16)
[2022-10-01] MEDS ORDERED: KETOROLAC 30 MG/ML VIAL IV PRN (07:16)
[2022-10-01] MEDS ORDERED: DEXTROSE 50% 50 ML SYRINGE IV PRN (07:26)
[2022-10-01] MEDS ORDERED: SODIUM CHLORIDE 0.9% 1000ML 1,000 ML IV PRN (07:26)
[2022-10-01] MEDS ORDERED: DEXTROSE 5% 1,000 ML IV PRN (07:26)
[2022-10-01] MEDS ORDERED: INSULIN REGULAR 250 UNITS in SODIUM CHLORIDE 0.9% 247.5 ML IV PRN (07:26)
--- NOTE | 2022-10-01 07:27 | History & Physical Bridge Note ---
Date of Service October 01, 2022 History & Physical Bridge Note I have examined the patient, reviewed the History & Physical and in the interval since the performance of the History & Physical I have noted the following changes of clinical significance: no changes noted
[2022-10-01] MEDS ORDERED: SODIUM CHLORIDE 0.9% 1000ML 1,000 ML IV SCH (07:30)
[2022-10-01] MEDS ORDERED: DC INTRASPINAL MORPHINE SCH (07:30)
[2022-10-01] MEDS ORDERED: NO NARCOTICS OR SEDATIVES SCH (07:30)
[2022-10-01 08:19] LABS: Albumin Globulin Ratio 0.8 (0.9-2); Albumin Level 2.9 gm/dl (3.4-5.0); BUN Creatinine Ratio 17.7 (10-20); Bilirubin,Total 0.2 mg/dl (0.2-1.0); Calcium 8.3 mg/dl (8.6-10.3); Est GFR (African American) 91.3 ml/min; Est GFR (Non-African American) 78.8 ml/min; Globulin 3.6 gm/dl (2.5-4.0); Potassium 5.3 mmol/L (3.5-5.1); Total Protein 6.5 gm/dl (6.0-8.3)
[2022-10-01] MEDS ORDERED: PHENYLEPHRINE 100MCG/ML 5ML SYR ONE ×2 (08:21→08:59)
[2022-10-01 09:12] LABS: Base Excess Cord Arterial Bld -5.5 mEq/L (-9-1.8); CO2 Cord Arterial Blood 84 mmHg (39.1-73.5); HCO3 Cord Arterial Blood 26 mmol/L (19.7-28.5); Oxygen Sat Cord Arterial Blood < 60.0 % (<60); PO2 Cord Arterial Blood 7 mmHg (4.1-31.7)
[2022-10-01 09:19] LABS: Base Excess Cord Venous Blood -5.8 mEq/L (-7.7-1.9); Cord Venous Blood HCO3 23 mmol/L (18.4-26.8); Cord Venous Blood PCO2 61 mmHg (30.4-57.2); Cord Venous Blood PO2 23 mmHg (14.1-43.3); Cord Venous Blood pH 7.19 (7.20-7.44); O2 Saturation Cord Venous Bld < 60.0 % (<68)
--- NOTE | 2022-10-01 09:27 | Operative Report ---
PG Post Operative Report Pre & Post Diagnosis Operation Date: 10/01/22 07:30 Pre-Op Diagnosis: Previous x2 Chronic hypertension with superimposed pre-eclampsia without severe features Pregestational diabetes Obesity Hypothyroidism Rubella Equivocal Postop Diagnosis: Same I identified the patient and participated in the time-out.: Yes Procedure Operation Date: 10/01/22 07:30 Repeat low transverse section Surgeon Jihan Wilkins DO Ceramic Capacitor Processor Crispin Rivera MD Estimated Blood Loss 500 Findings Consistent with Post-Op Diagnosis Viable female , Apgars 8/9. Weight pending, please see nursery records. Normal appearing uterus, fallopian tubes, ovaries. Specimens placenta, cord blood, cord gas Drains mckeon clear yellow Anesthesia Type Spinal Complications none Disposition Accompanied Patient To Recovery: Yes Indications 32yo @ 37 04/17, chronic hypertension with superimposed preeclampsia and history of x 2. Description of Procedure The patient was seen in her labor and delivery room, risks benefits and alternatives to surgery were reviewed. Informed consent obtained. Questions were answered. She was taken to the operating room, spinal anesthesia was administered. She was then prepared and draped in the usual sterile fashion in the supine position with a leftward tilt. Timeout was confirmed. A Pfannenstiel skin incision was made with a scalpel, and carried through to the underlying layer of fascia. Fascia was nicked at midline, and this incision was extended bilaterally. The superior aspect of the fascial incision was grasped with Don clamps x2, elevated off the underlying rectus abdominis muscles, and dissected sharply and bluntly. In similar fashion, the inferior aspect of the fascial incision was dissected. The rectus abdominis muscles were , and the peritoneum was entered bluntly digitally. This was extended bilaterally. The bladder flap was taken d own carefully using Metzenbaum scissors. Using a new scalpel, a low transverse uterine incision was created. Clear amniotic fluid noted. The infant was delivered from a cephalic presentation. The head delivered, followed by shoulders and body. Spontaneous cry on the field. The cord was doubly clamped and cut, and the infant was handed off to the waiting terminal manager. A segment was retained for cord gases. Cord blood was obtained. The placenta was delivered spontaneously intact. The uterus was exteriorized, and cleared of all clots and debris. The hysterotomy incision was reapproximated using 0 Vicryl in a running locked stitch. A second layer of the same suture was used to imbricate the incision. Posterior uterus was evaluated and normal. The uterus was returned to the abdomen, and gutters were cleared of clots and debris. Excellent hemostasis was observed. The fascial incision was reapproximated using 0 Vicryl in a running stitch. The subcutaneous tissue was irrigated, and reapproximated using 2-0 plain gut in a running stitch. The skin was reapproximated using 4-0 Vicryl in a running subcuticular stitch. REUBEN dressing applied. The patient tolerated the procedure well, and will be taken to the recovery area in stable and good condition. Sponge, needle, instrument counts correct at conclusion of delivery. I attest to the content of the Intraoperative Record and any orders documented therein. Any exceptions are noted below. OB Procedure Charges 25061
--- NOTE | 2022-10-01 09:33 | Anesthesiology Progress Note ---
Date of Service October 01, 2022 Anesthesia Post Procedure Vital Signs Vital Signs: Temp Pulse Resp BP Pulse Ox 10/01/22 07:17 36.5 C 20 10/01/22 09:27 82 97 10/01/22 09:23 82 133/77 10/01/22 07:17 79 158/76 H 10/01/22 06:06 90 158/81 H 10/01/22 05:59 36.6 C 18 Transfer of Care Handoff Completed per policy Notes Mental Status: alert / awake / arousable and participated in evaluation Patient Amnestic to Procedure: Yes Nausea / Vomiting: adequately controlled Pain: adequately controlled Airway Patency, RR, SpO2: stable & adequate BP & HR: stable & adequate Hydration State: stable & adequate Neuraxial Anesthesia: was administered and sensory block is resolving Anesthetic Complications: no major complications apparent and Pt Satisfied with anesthetic care
[2022-10-01] MEDS ORDERED: DIPHTHERIA/TETANUS/PERTUSSIS Vaccine (Tdap, Age 7+yrs) 0.5mL SYR/VL IM ONE (09:45)
[2022-10-01] MEDS ORDERED: LORATADINE 10 MG TAB PO PRN (09:45)
[2022-10-01] MEDS ORDERED: diphenhydrAMINE Capsule 25 MG CAP PO PRN (09:45)
[2022-10-01] MEDS ORDERED: PHARMACY GLYCEMIC MGMT CONSULT PRN (09:45)
[2022-10-01] MEDS ORDERED: HYDROCORTISONE ACETATE 25 MG SUPP PR PRN (09:45)
[2022-10-01] MEDS ORDERED: BENZOCAINE 20% AER SPR 82.5 GM CAN EXT PRN (09:45)
[2022-10-01] MEDS ORDERED: SENNA 8.6 MG TAB PO PRN (09:45)
[2022-10-01] MEDS: OXYTOCIN 30 UNITS in LACTATED RINGER'S 1,000 ML IV SCH ×2 (11:24→19:22)
[2022-10-01] MEDS ORDERED: LANTUS PER UNIT CHARGE SC ONE (11:30)
--- NOTE | 2022-10-01 12:20 | Communication Note ---
Date of Service: October 01, 2022 I spoke with Radha by phone, for recommendations for patient's insulin pump when she starts eating tomorrow: Midnight 2.15u basal 4am 3.05 8am 3.35 10am 2.45 Then insulin to carb ratio, 1u insulin to 4 carbs. Correction 11. Correct if >110. Will plan to ask pharmacy (managing insulin needs currently) to check in with insulin needs during hospital stay, will plan for telehealth visit for further endocrine followup when at home next week.
--- NOTE | 2022-10-01 12:29 | Pharmacy Report ---
Pharmacy Glycemic Short Note 2 - Date of Service October 01, 2022 - Glycemic Short BSG Results (Last 24 hours): 10/01/22 10/01/22 10/01/22 06:16 07:42 07:46 Glucose 212 H POC Glucose 230 H 210 H 10/01/22 10/01/22 10/01/22 08:56 09:58 10:59 Glucose POC Glucose 231 H 228 H 198 H 10/01/22 12:05 Glucose POC Glucose 193 H OUTPATIENT ANTIDIABETIC REGIMEN: * insulin pump/omnipod - follows [facility] for DM management * Pump settings taken from 08/07/22 note - basal 58 units/day / CF / CR 2 ASSESSMENT: * 32 year old now s/p C - section. Started on insulin drip per protocol - currently running at 2.5 units/hr. Follows [facility] for DM management outpatient. Discussed with Dr. Victor and she plans to discuss insulin pump settings with outpatient provider prior to discharge. Plan is for patient to attach insulin pump tomorrow and to manage with SQ insulin for today * Prior to - per outpatient DM notes, patient requiring 50-60 units of basal insulin and daily bolus of 15 units with meals. * Plan to give Lantus 20 units x 1 now and will d/c insulin drip and manage with SQ insulin ACHS. This will be about a ~50% reduction in prior pre- insulin needs as unclear of PO status * Plan to start novolog stress of 2 dosing PLAN FOR INPATIENT GLYCEMIC CONTROL: * Hold outpatient oral diabetes medications * Basal insulin * Lantus 20 units x 1 now * Bolus insulin * NovoLog per scale ACHS or Q6hrs while NPO * Goal Range: Low 110 mg/dL - High 140 mg/dL * Correction Factor: 25 mg/dL/unit * Nutritional / Prandial insulin per carb ratio of 1 unit per 9 grams CHO consumed
[2022-10-01] MEDS: INSULIN ASPART PER UNIT CHARGE SC SCH ×3 (12:53→21:45)
[2022-10-01] MEDS: SIMETHICONE 80 MG CHEW PO SCH ×3 (15:14→21:22)
[2022-10-01] MEDS: LABETALOL HCL 100 MG TAB PO SCH (17:53)
[2022-10-01] MEDS ORDERED: NON-FORMULARY MEDICATION (Insulin Glargine [Lantus Solostar U-100 Insulin] 100 unit/mL (3 SQ SCH (21:00)
[2022-10-01] MEDS: DOCUSATE SODIUM 100 MG CAP PO SCH (21:22)
[2022-10-01] MEDS: PANTOprazole 40 MG TAB PO SCH (23:15)
[2022-10-02] MEDS ORDERED: diphenhydrAMINE 50 MG/ML VIAL IV PRN (01:18)
[2022-10-02] MEDS ORDERED: KETOROLAC 30 MG/ML VIAL IV PRN ×2 (01:18→09:45)
[2022-10-02] MEDS ORDERED: diphenhydrAMINE Capsule 25 MG CAP PO PRN (01:18)
[2022-10-02] MEDS ORDERED: PROMETHAZINE HCL 25 MG in SODIUM CHLORIDE 0.9% 50 ML IV PRN ×2 (01:18→09:45)
[2022-10-02] MEDS ORDERED: ONDANSETRON INJ 2 MG/ML 2 ML VIAL IV PRN (01:18)
[2022-10-02] MEDS: oxyCODONE/ACETAMINOPHEN 5mg/325mg TAB PO PRN ×4 (04:29→23:42)
[2022-10-02] MEDS: LEVOTHYROXINE SODIUM 200 MCG TABLET PO SCH (06:26)
[2022-10-02] MEDS: INSULIN ASPART PER UNIT CHARGE SC SCH ×2 (07:45→12:28)
[2022-10-02 08:10] LABS: Basophils # (auto) 0.07 K/uL (0-0.2); Basophils % (auto) 0.5 %; Eosinophils # (auto) 0.13 K/uL (0-0.50); Hematocrit (blood only) 36.4 % (37.0-47.0); Hemoglobin 11.7 g/dl (12.0-16.0); Immature Granulocytes # (auto) 0.05 K/uL (0.01-0.20); Immature Granulocytes % (auto) 0.4 %; Lymphocytes # (auto) 3.02 K/uL (1.2-3.4); Lymphocytes % (auto) 23.3 %; Mean Corpuscular Hgb Conc 32.1 g/dL (32.0-36.0); Mean Corpuscular Volume 83.9 fL (80.0-100.0); Mean Platelet Volume 12.2 fL (9.4-12.4); Monocytes # (auto) 0.62 K/uL (0.11-0.59); Monocytes % (auto) 4.8 %; Neutrophils # (auto) 9.05 K/uL (1.40-6.50); Platelet Count 254 K/uL (130-400); RDW Standard Deviation 39.7 fL (36.4-46.3); Red Blood Count 4.34 M/uL (4.20-5.40); White Blood Count 12.94 K/ul (4.8-10.8)
[2022-10-02] MEDS ORDERED: MEASLES, MUMPS & RUBELLA VIRUS VIAL SQ ONE (08:29)
--- NOTE | 2022-10-02 08:29 | Obstetrical Progress Note ---
Date of Service October 02, 2022 Assessment & Plan (1) Pre-eclampsia added to pre-existing hypertension: (2) Previous delivery affecting , antepartum: (3) Controlled type 2 diabetes mellitus, with long-term current use of insulin: Plan POD#1 doing well. Incision covered with REUBEN dressing. Patient aware she will need to have this removed in office this coming TUESDAY. She will make an appointment for this and BP check. BP elevated yesterday - she is already taking Procardia XL 90mg, therefore I added a second agent - labetalol 100mg BID. Will continue to monitor BPs today, patient is aware that she might need dose adjustments of this. For diabetes, she will replace her Dexcom and insulin pump today. She is going to start eating today. I provided her with the pump settings from endocrine, and she is comfortable placing, and programming her pump herself. She is aware that endocrine (Radha) has recommended a telehealth visit this week to recheck how she is doing with her diabetes. Will continue her Zoloft 50mg QD, as well as order MMR vaccine for Rubella Equivocal. Subjective Ambulation: ambulating normally Voiding: no voiding problems Diet Tolerance:: regular diet Lochia:: Moderate Review of Systems All systems reviewed & are unremarkable except as noted in HPI & below Physical Exam Constitutional WD/WN, vitals as above no acute distress Respiratory normal respiratory effort Cardiovascular Rate/Rhythm: regular rate and regular rhythm Gastrointestinal (Abdomen) Inspection/Auscultation: abdomen normal to inspection; abdomen not distended Percussion/Palpation: abdomen soft Genitourinary OB Exam Abdomen: + fundal height Fundus: + firm; not tender Results & Data Vital Signs (Past 12 Hours) Vital Signs Temp Pulse Pulse Resp BP Pulse Ox O2 Del Method 10/02/22 04:50 36.6 C 90 20 145/82 H 97 Room Air 10/02/22 01:30 37.0 C 103 H 18 152/85 H 95 Room Air 10/02/22 01:20 18 95 10/02/22 00:50 18 95 10/02/22 00:50 37.0 C 103 H 18 152/85 H 95 Room Air 10/02/22 00:24 18 93 10/01/22 23:20 18 93 10/01/22 22:20 20 98 10/01/22 21:20 18 98
[2022-10-02] MEDS: SIMETHICONE 80 MG CHEW PO SCH ×4 (08:31→21:03)
[2022-10-02] MEDS: DOCUSATE SODIUM 100 MG CAP PO SCH ×2 (08:32→21:03)
[2022-10-02] MEDS: LABETALOL HCL 100 MG TAB PO SCH ×2 (08:32→21:03)
[2022-10-02] MEDS: PRENATAL VITAMIN 1 TAB PO SCH (08:32)
[2022-10-02] MEDS: PANTOprazole 40 MG TAB PO SCH ×2 (08:32→21:02)
[2022-10-02] MEDS: FERROUS SULFATE 325 MG TAB PO SCH (08:32)
[2022-10-02] MEDS: FLUTICASONE PROPIONATE NA SPR 16 GM BTL SCH (08:33)
[2022-10-02] MEDS ORDERED: oxyCODONE/ACETAMINOPHEN 5mg/325mg TAB PO PRN (09:45)
[2022-10-02] MEDS: SERTRALINE HCL 50 MG TABLET PO SCH (09:55)
[2022-10-02] MEDS: NIFEdipine EXTENDED REL 30 MG TABCR PO SCH (09:55)
[2022-10-02] MEDS: IBUPROFEN 600 MG TAB PO PRN ×3 (11:38→23:43)
--- NOTE | 2022-10-02 12:25 | Pharmacy Report ---
Pharmacy Glycemic Short Note 2 - Date of Service October 02, 2022 - Glycemic Short BSG Results (Last 24 hours): 10/01/22 10/01/22 10/02/22 17:11 21:26 07:39 POC Glucose 152 H 177 H 238 H OUTPATIENT ANTIDIABETIC REGIMEN: * insulin pump/omnipod - follows [facility] for DM management * Pump settings taken from 08/07/22 note - basal 58 units/day / CF 9 / CR 2 ASSESSMENT: 10/02 * Patient received total of 38 units of insulin drip (in addition to insulin drip - on for ~4 hours only) * Fasting BSG 238 mg/dL - spoke with RN and patient attached insulin pump back on and will be managing herself. Patient signed patient agreement for pump management. * 32 year old now s/p C - section. Started on insulin drip per protocol - currently running at 2.5 units/hr. Follows [facility] for DM management outpatient. Discussed with Dr. Victor and she plans to discuss insulin pump settings with outpatient provider prior to discharge. Plan is for patient to attach insulin pump tomorrow and to manage with SQ insulin for today * Prior to - per outpatient DM notes, patient requiring 50-60 units of basal insulin and daily bolus of 15 units with meals. * Plan to give Lantus 20 units x 1 now and will d/c insulin drip and manage with SQ insulin ACHS. This will be about a ~50% reduction in prior pre- insulin needs as unclear of PO status * Plan to start novolog stress of 2 dosing PLAN FOR INPATIENT GLYCEMIC CONTROL: * Hold outpatient oral diabetes medications * Continue insulin pump - Pharmacy to sign off glycemic consult as patient self managing insulin pump
[2022-10-02] MEDS: INSULIN, Rapid-Acting PUMP SCH ×3 (12:30→21:04)
[2022-10-02] MEDS ORDERED: INSULIN ASPART 100 UNITS/ML VIAL SC PRN (12:30)
[2022-10-02] MEDS ORDERED: bisacodyL 5 MG TABEC PO SCH (20:00)
[2022-10-03] MEDS: IBUPROFEN 600 MG TAB PO PRN ×3 (03:59→21:20)
[2022-10-03] MEDS: oxyCODONE/ACETAMINOPHEN 5mg/325mg TAB PO PRN ×2 (03:59→10:28)
[2022-10-03] MEDS: LEVOTHYROXINE SODIUM 200 MCG TABLET PO SCH (06:28)
[2022-10-03 07:22] LABS: Hematocrit (blood only) 31.2 % (37.0-47.0); Hemoglobin 10.3 g/dl (12.0-16.0)
[2022-10-03] MEDS: INSULIN, Rapid-Acting PUMP SCH ×4 (08:07→21:04)
[2022-10-03] MEDS: FLUTICASONE PROPIONATE NA SPR 16 GM BTL SCH (08:20)
[2022-10-03] MEDS: SIMETHICONE 80 MG CHEW PO SCH ×4 (08:21→21:05)
[2022-10-03] MEDS: PRENATAL VITAMIN 1 TAB PO SCH (08:21)
[2022-10-03] MEDS: DOCUSATE SODIUM 100 MG CAP PO SCH ×2 (08:21→21:03)
[2022-10-03] MEDS: LABETALOL HCL 100 MG TAB PO SCH ×2 (08:21→21:04)
[2022-10-03] MEDS: FERROUS SULFATE 325 MG TAB PO SCH (08:21)
[2022-10-03] MEDS: SERTRALINE HCL 50 MG TABLET PO SCH (08:22)
[2022-10-03] MEDS: NIFEdipine EXTENDED REL 30 MG TABCR PO SCH (08:22)
[2022-10-03] MEDS: PANTOprazole 40 MG TAB PO SCH ×2 (08:22→21:04)
--- NOTE | 2022-10-03 08:57 | Obstetrical Progress Note ---
Date of Service October 03, 2022 Assessment & Plan (1) examination following delivery: routine care. breast feeding, rhpos, mmr given. (2) Pre-eclampsia added to pre-existing hypertension: on meds, added labetalol during this admission and bps are stable, will watch. (3) Diabetes mellitus affecting : using her own pump and settings per endocrine, aware she needs to do a telehealth visit with them early this week. (4) Hypothyroid in , antepartum: endocrine also made adjustments to her meds and are following. Day #:: 2 Subjective Ambulation: ambulating normally Voiding: no voiding problems Passing Gas:: Yes Diet Tolerance:: regular diet Lochia:: Small Feeding Type:: breast feeding baby in nursery, requiring insulin. pt sitting up eating well. her own insulin pump on, settings per endocrine. notes bsgs much better. she notes fbs today in 80s. pain control adequate. denies concerns. Constitutional: + as per Subjective / HPI Physical Exam Constitutional WD/WN, vitals as above Respiratory normal respiratory effort, lungs clear to auscultation Cardiovascular Rate/Rhythm: regular rate and regular rhythm Gastrointestinal (Abdomen) Inspection/Auscultation: abdomen normal to inspection, normal bowel sounds and + abdominal surgical incision (ERUBEN dressing in place. ) Percussion/Palpation: abdomen soft; abdomen nontender and no guarding Fundus firm 2cm down Musculoskeletal nt calves trace edema Neurologic grossly normal Psychiatric A+Ox3, euthymic affect Results & Data Vital Signs (Past 12 Hours) Vital Signs Temp Pulse Resp BP Pulse Ox O2 Del Method 10/03/22 07:57 97.5 F L 90 20 147/80 H 97 Room Air 10/03/22 04:00 130/84 10/03/22 00:22 135/85 10/02/22 23:46 97.7 F 90 22 154/94 H 96 Room Air
[2022-10-03] MEDS ORDERED: bisacodyL 10 MG SUPP PR PRN (09:30)
[2022-10-03] MEDS ORDERED: MEASLES, MUMPS & RUBELLA VIRUS VIAL ONE (12:48)
[2022-10-03] MEDS: MAGNESIUM HYDROXIDE SUSP 30 ML UDC PO PRN (18:34)
[2022-10-04] MEDS: IBUPROFEN 600 MG TAB PO PRN ×4 (01:25→20:51)
[2022-10-04] MEDS: LEVOTHYROXINE SODIUM 200 MCG TABLET PO SCH (06:23)
[2022-10-04] MEDS: oxyCODONE/ACETAMINOPHEN 5mg/325mg TAB PO PRN ×3 (06:23→20:50)
--- NOTE | 2022-10-04 07:04 | Obstetrical Progress Note ---
Date of Service <Yogi Shen DO - Last Filed: 10/04/22 07:18> October 04, 2022 Assessment & Plan <Yogi Shen DO - Last Filed: 10/04/22 07:18> (1) examination following delivery: - Feels well today. Eating well, voiding well, ambulating well. - Pain well controlled with ibuprofen 600mg Q4H PRN and Percocet Q4H PRN. - Routine care -- OOB, ambulation, diet progression as tolerated - After discharge will have 6 week follow-up with Dr. Wilkins. (2) Pre-eclampsia added to pre-existing hypertension: - Blood pressure is fairly well controlled during admission - Currently on nifedipine 90 mg every morning, added on labetalol 100 mg twice daily during this admission. (3) Hypothyroidism: -endocrine also made adjustments to her meds and are following. (4) Hidradenitis suppurativa: - 2 cyst/nodules found on physical exam today. - Patient states that it has drained - Use Panoxyl-10 cleanser once daily and applying clindamycin 1% lotion to affected areas once daily after washing. - Patient brought in her own supplies that she will use. (5) Diabetes mellitus affecting : - Using her own pump and settings per endocrine, aware she needs to do a telehealth visit with them early this week. Day #:: 3 <Nelia Victor MD, FACOG - Last Filed: 10/04/22 07:34> (1) examination following delivery: - Feels well today. Eating well, voiding well, ambulating well. - Pain well controlled with [ibuprofen 600mg Q4H PRN] - Routine care -- OOB, ambulation, diet progression as tolerated - After discharge will have 6 week follow-up (2) Pre-eclampsia added to pre-existing hypertension: (3) Hypothyroidism: (4) Hidradenitis suppurativa: (5) Diabetes mellitus affecting : Subjective <Yogi Shen DO - Last Filed: 10/04/22 07:18> Ambulation: ambulating normally Voiding: no voiding problems Passing Gas:: Yes Diet Tolerance:: regular diet Lochia:: Small Feeding Type:: breast feeding Current Pain Level(1-10): 2 Review of Systems Denies fever, chills, sweats Denies shortness of breath, difficulty breathing, chest pain, palpitations, ches t pressure. Denies breast pain. Denies dysuria. Denies headache or changes in vision. Physical Exam <Yogi Shen DO - Last Filed: 10/04/22 07:18> General: Alert, oriented. No acute distress. Cardiac: Regular rate and rhythm, no murmurs/rubs/gallops. Respiratory: Clear to auscultation bilaterally a/p, no wheezes/rales/rhonchi. No increased work of breathing. Symmetrical chest rise. No respiratory distress. Abdomen: Soft, nontender, nondistended. Bowel sounds present. Uterus: Uterine fundus firm, palpable 2 cm below umbilicus. Lower Extremities: Slight bilateral lower extremity edema. No deep calf pain. Angeli's negative bilaterally. Skin: Tender nonerythematous nodules/cysts on the right groin fold and inner right thigh Results & Data <Yogi Shen DO - Last Filed: 10/04/22 07:18> Vital Signs (Past 12 Hours) Vital Signs Temp Pulse Pulse Resp BP Pulse Ox O2 Del Method 10/04/22 03:50 36.5 C 85 18 141/84 H 98 Room Air 10/04/22 00:20 36.4 C L 86 16 134/80 97 Room Air 10/03/22 20:35 Room Air 10/03/22 20:35 36.5 C 102 H 17 137/84 98 Room Air Laboratory Results 10/03/22 06:48 10/01/22 07:42 <Nelia Victor MD, FACOG - Last Filed: 10/04/22 07:34> Co-Signing Physician Notes Resident Physician Supervision Note: I was present with Dr. Shen during the history and exam. I discussed the case with the resident and agree with the findings and plan as documented in the note. Any exceptions or clarifications are listed here: stable doing well however baby in nursery requiring interventions. eating, voiding, ambulating. no pain issues. had mmr. she has HS and using her typical topicals to help, does no feel any new concerns. using insulin pump and monitoring bsgs. bps stable on current regimen. abd soft ff 2 down, ext nt calves. maia dressing in place. HS lesions at right groin noted. right thigh dressed. pod#3, s/p repeat c/s. will cont current care. breast pumping and bottle feeding. c/w current meds. add usual trts for HS. Documented By: Nelia Victor MD, FACOG
[2022-10-04] MEDS: INSULIN, Rapid-Acting PUMP SCH ×4 (07:36→21:43)
[2022-10-04] MEDS: FLUTICASONE PROPIONATE NA SPR 16 GM BTL SCH (08:09)
[2022-10-04] MEDS: PRENATAL VITAMIN 1 TAB PO SCH (08:09)
[2022-10-04] MEDS: DOCUSATE SODIUM 100 MG CAP PO SCH ×2 (08:09→20:50)
[2022-10-04] MEDS: SIMETHICONE 80 MG CHEW PO SCH ×4 (08:09→20:50)
[2022-10-04] MEDS: FERROUS SULFATE 325 MG TAB PO SCH (08:09)
[2022-10-04] MEDS: LABETALOL HCL 100 MG TAB PO SCH ×2 (08:10→20:50)
[2022-10-04] MEDS: SERTRALINE HCL 50 MG TABLET PO SCH (08:11)
[2022-10-04] MEDS: NIFEdipine EXTENDED REL 30 MG TABCR PO SCH (09:05)
[2022-10-04] MEDS: PANTOprazole 40 MG TAB PO SCH ×2 (09:09→20:50)
[2022-10-04] MEDS: MAGNESIUM HYDROXIDE SUSP 30 ML UDC PO PRN (22:43)
[2022-10-05] MEDS: oxyCODONE/ACETAMINOPHEN 5mg/325mg TAB PO PRN ×2 (05:34→13:37)
[2022-10-05] MEDS: IBUPROFEN 600 MG TAB PO PRN ×2 (05:34→13:36)
--- NOTE | 2022-10-05 06:32 | Obstetrical Progress Note ---
Date of Service <Yogi Shen DO - Last Filed: 10/05/22 07:10> October 05, 2022 Assessment & Plan <Yogi Shen DO - Last Filed: 10/05/22 07:10> (1) examination following delivery: - Feels well today. Eating well, voiding well, ambulating well. - Pain well controlled with ibuprofen 600mg Q4H PRN and Percocet Q4H PRN. - Routine care -- OOB, ambulation, diet progression as tolerated - After discharge will have 6 week follow-up with Dr. Wilkins. - Will Discharge today. (2) Pre-eclampsia added to pre-existing hypertension: - Blood pressure is fairly well controlled during admission - Currently on nifedipine 90 mg every morning, added on labetalol 100 mg twice daily during this admission. - BP check in one week after discharge. (3) Hypothyroidism: -endocrine also made adjustments to her meds and are following. (4) Hidradenitis suppurativa: - 2 cyst/nodules found on physical exam today. - Patient states that it has drained - Use Panoxyl-10 cleanser once daily and applying clindamycin 1% lotion to affected areas once daily after washing. - Sent in both medications to pharmacy. (5) Diabetes mellitus affecting : - Using her own pump and settings per endocrine, aware she needs to do a telehealth visit with them early this week. (6) Depression: Restarted sertraline 50 mg . Day #:: 4 <Nafisa Carlos MD, FACOG - Last Filed: 10/05/22 07:17> (1) examination following delivery: (2) Pre-eclampsia added to pre-existing hypertension: (3) Hypothyroidism: (4) Hidradenitis suppurativa: (5) Diabetes mellitus affecting : (6) Depression: Subjective <Yogi Shen DO - Last Filed: 10/05/22 07:10> Ambulation: ambulating normally Voiding: no voiding problems Passing Gas:: Yes Diet Tolerance:: regular diet Lochia:: Small Feeding Type:: breast feeding Current Pain Level(1-10): 0 Review of Systems Denies fever, chills, sweats Denies shortness of breath, difficulty breathing, chest pain, palpitations, chest pressure. Denies breast pain. Denies dysuria. Denies headache or changes in vision. Physical Exam <Yogi Shen DO - Last Filed: 10/05/22 07:10> General: Alert, oriented. No acute distress. Cardiac: Regular rate and rhythm, no murmurs/rubs/gallops. Respiratory: Clear to auscultation bilaterally a/p, no wheezes/rales/rhonchi. No increased work of breathing. Symmetrical chest rise. No respiratory distress. Abdomen: Soft, nontender, nondistended. Bowel sounds present. Uterus: Uterine fundus firm, palpable 3 cm below umbilicus. Lower Extremities: Slight bilateral lower extremity edema. No deep calf pain. Angeli's negative bilaterally. Skin: Tender nonerythematous nodules/cysts on the right groin fold and inner right thigh Results & Data <Yogi Shen DO - Last Filed: 10/05/22 07:10> Vital Signs (Past 12 Hours) Vital Signs Temp Pulse Resp BP Pulse Ox O2 Del Method 10/05/22 03:40 36.7 C 87 18 138/83 96 Room Air 10/05/22 00:00 Room Air 10/05/22 00:00 36.6 C 85 20 130/81 97 Room Air 10/04/22 20:51 37.0 C 89 18 154/88 H <Nafisa Carlos MD, FACOG - Last Filed: 10/05/22 07:17> Co-Signing Physician Notes Resident Physician Supervision Note: I interviewed and examined the patient. Discussed with Dr. Shen and agree with findings and plan as documented in the note. Any exceptions or clarifications are listed here: Doing well overall. BS are better controlled and f/u visit with endocrine planned. BPs fairly well controlled, continue current management. cont synthroid. HS is flaring and being managed as noted. f/u on Tuesday in the office. Her dressing is c/d/i. Plan for change on Tuesday. Documented By: Nafisa Carlos MD, FACOG Resident Activity Tracking <Yogi Shen DO - Last Filed: 10/05/22 07:10> Resident Involvement: Resident Care Provided Care Provided: OB Delivery
[2022-10-05] MEDS: LEVOTHYROXINE SODIUM 200 MCG TABLET PO SCH (06:34)
[2022-10-05] MEDS: PRENATAL VITAMIN 1 TAB PO SCH (08:16)
[2022-10-05] MEDS: FLUTICASONE PROPIONATE NA SPR 16 GM BTL SCH (08:16)
[2022-10-05] MEDS: LABETALOL HCL 100 MG TAB PO SCH (08:16)
[2022-10-05] MEDS: DOCUSATE SODIUM 100 MG CAP PO SCH (08:16)
[2022-10-05] MEDS: SIMETHICONE 80 MG CHEW PO SCH ×2 (08:16→13:36)
[2022-10-05] MEDS: FERROUS SULFATE 325 MG TAB PO SCH (08:16)
[2022-10-05] MEDS: NIFEdipine EXTENDED REL 30 MG TABCR PO SCH (08:17)
[2022-10-05] MEDS: PANTOprazole 40 MG TAB PO SCH (08:17)
[2022-10-05] MEDS: SERTRALINE HCL 50 MG TABLET PO SCH (08:17)
[2022-10-05] MEDS: INSULIN, Rapid-Acting PUMP SCH ×2 (08:18→11:54)
== END 2022-10-05 14:53 | disposition home or self-care (01) | DRG 788 ==
LOC: 4S1 05:41 → 4E2 15:00 → EDSTATUS 10-11 08:55

== ENCOUNTER 2024-11-03 19:32 | Inpatient (IN) ==
[2024-11-03] MEDS ORDERED: OXYTOCIN 30 UNITS/NSS 30 UNITS/500 ML BAG IV PRN (19:49)
[2024-11-03] MEDS ORDERED: LIDOCAINE 1% LOCAL 20 ML VIAL INFIL PRN (19:49)
[2024-11-03] MEDS ORDERED: LACTATED RINGER'S 1,000 ML IV PRN (19:49)
[2024-11-03] MEDS ORDERED: SODIUM CHLORIDE 0.9% 100 ML IV PRN (19:54)
[2024-11-03] MEDS: ceFAZolin 3000MG 3,000 MG/72.5 ML BAG IV SCH (20:05)
[2024-11-03] MEDS ORDERED: AZITHROMYCIN 500 MG/255 ML BAG IV ONE (20:13)
[2024-11-03] MEDS ORDERED: ONDANSETRON INJ 2 MG/ML 2 ML VIAL ONE (20:19)
[2024-11-03] MEDS ORDERED: PROPOFOL IV EMULSION 10 MG/ML 20 ML VIAL IV ONE (20:19)
[2024-11-03] MEDS ORDERED: ROCURONIUM BROMIDE 10 MG/ML 5 ML VIAL IV ONE (20:19)
[2024-11-03] MEDS ORDERED: SUCCINYLCHOLINE CHLORIDE 20 MG/ML 10 ML VIAL IV ONE (20:19)
--- NOTE | 2024-11-03 20:19 | Labor Progress Brief Note ---
Date of Service November 03, 2024 Subjective Briefly: 34yo morbidly obese cHTN / T1DM / 3 prior sections, presented to L&D with c/o strong constant pelvic cramp beginning at 6pm followed by onset of bloody fluid per vagina. Confirmed ROM with dark bloody fluid on L&D. FT/TH/HI cervix FHT 155 mod tosin no accels +late decels [place] tracing Q2-3min Dx: PPROM/PTL with strong suspicion for abruption given dark bloody amniotic fluid and Cat 2 FHT. Explained to patient, urgency [facility]. Needs emergent repeat section. Patient agrees, consent completed, and inquired about concurrent BTL which patient declines. Labs including PIH labs, coags, T&C, glucose status all ordered. FSBG 190s at bedside just now. Dr. Guillen was notified to come to assist and is en route to hospital. Dr. Tavarez notified and en route to hospital. Assessment & Plan Admission and Anticipated Discharge Date Admission Date: November 03, 2024 Results & Data Vital Signs (Past 12 Hours) Vital Signs Temp Pulse Resp BP 11/03/24 19:50 98.4 F 100 H 20 142/67 H 11/03/24 19:49 100 H 142/67 H Coding Level of Care Code None
[2024-11-03] MEDS ORDERED: OXYTOCIN 10 UNITS/ML VIAL ONE ×3 (20:25→20:55)
[2024-11-03] MEDS ORDERED: LIDOCAINE 2% MPF LOCAL 5 ML VIAL ONE (20:26)
[2024-11-03 20:33] LABS: Hematocrit (blood only) 28.2 % (37.0-47.0); Hemoglobin 9.3 g/dl (12.0-16.0); Mean Corpuscular Hemoglobin 28.3 pg (25.0-34.0); Mean Corpuscular Volume 85.7 fL (80.0-100.0); Platelet Count 309 K/uL (130-400); RDW Standard Deviation 45.2 fL (36.4-46.3); Red Blood Count 3.29 M/uL (4.20-5.40); White Blood Count 10.06 K/ul (4.8-10.8)
[2024-11-03 20:52] LABS: Alanine Aminotransferase 10.0 U/L (7-52); Albumin Globulin Ratio 0.8 (0.9-2); Alkaline Phosphatase 127.0 U/L (34-104); Anion Gap 8.0 (3-11); Bilirubin,Total 0.2 mg/dl (0.2-1.0); Blood Urea Nitrogen 14.0 mg/dl (6-23); Calcium 9.0 mg/dl (8.6-10.3); Carbon Dioxide 21.0 mmol/L (21-32); Chloride 106.0 mmol/L (98-107); Creatinine Clr Calc Pharmacy 167.3 ml/min; Globulin 3.6 gm/dl (2.5-4.0); Glucose 187.0 mg/dl (70-99(Fasting)); Potassium 4.0 mmol/L (3.5-5.1); Sodium 135.0 mmol/L (136-145); Total Protein 6.5 gm/dl (6.0-8.3)
[2024-11-03] MEDS ORDERED: HYDROmorphone INJ 2 MG/ML SYR/VIAL ONE (20:55)
[2024-11-03] MEDS ORDERED: SODIUM CHLORIDE 0.9% PF INJ 10 ML VIAL ONE (21:01)
[2024-11-03 21:02] LABS: INR 0.9 (0.9-1.1); Partial Thromboplastin Time 28 Seconds (21-31); Prothrombin Time 10.1 Seconds (9.0-12.0)
[2024-11-03 21:05] LABS: Fibrinogen 713 mg/dl (184-400)
[2024-11-03] MEDS ORDERED: KETOROLAC 30 MG/ML VIAL ONE (21:05)
[2024-11-03 21:07] LABS: Hemoglobin A1C 7.6 % (4.5-5.6)
[2024-11-03 21:12] LABS: Base Excess Cord Arterial Bld -2.5 mEq/L (-9-1.8); Base Excess Cord Venous Blood -3.1 mEq/L (-7.7-1.9); CO2 Cord Arterial Blood 65 mmHg (39.1-73.5); Cord Venous Blood PO2 27 mmHg (14.1-43.3); HCO3 Cord Arterial Blood 27 mmol/L (19.7-28.5); O2 Saturation Cord Venous Bld < 60.0 % (<68); Oxygen Sat Cord Arterial Blood < 60.0 % (<60); PO2 Cord Arterial Blood < 20 mmHg (4.1-31.7); pH Cord Arterial Blood 7.22 (7.1-7.38)
[2024-11-03] MEDS ORDERED: OXYTOCIN 20 UNITS/1002ML LR IV ONE (21:16)
--- NOTE | 2024-11-03 21:29 | Operative Report ---
PG Post Operative Report Pre & Post Diagnosis Operation Date: 11/03/24 20:30 Encarnacion IUP @ 31w0d PPROM Suspected abruption cHTN with superimposed severe preeclampsia T1DM Morbid obesity Prior section x3 Postop: Confirmed placental abruption Liveborn infant I identified the patient and participated in the time-out.: Yes Procedure Operation Date: 11/03/24 20:30 Repeat low transverse section Surgeon Dory Yeung MD Distribution Estimator Mindy Estimated Blood Loss 700 Findings Consistent with Post-Op Diagnosis Specimens Cord blood Cord gases Placenta Anesthesia Type General Complications none Disposition Accompanied Patient To Recovery: Yes Disposition: L&D Description of Procedure The patient was placed operating table in the supine position with a leftward tilt. She was prepped and draped in standard sterile fashion. A time-out was held, identifying correct patient, procedure, positioning and preoperative antibiotics. There were no concerns. The anesthetic was established and once intubation was accomplished, incision was made promptly. A Pfannenstiel skin incision was made with a knife and taken down to the underlying layer of fascia. The fascia was incised in the midline with the knife and taken out laterally with scissors. The superior edge of the fascial incision was grasped, elevated and dissected off the underlying rectus both superiorly and inferiorly. The muscles were bluntly in the midline. The peritoneum was entered bluntly. The incision was then stretched. The Stanley O-Ring retractor was placed. The vesicouterine peritoneum was identified but not dissected. Above the vesicouterine junction, a hysterotomy incision was created transversely in the lower uterine segment, final entry being accomplished in a blunt manner with the link and link knitting machine operator's fingers. Burgundy- colored bloody amniotic fluid was encountered. The link and link knitting machine operator's hand was used to elevate the head to the hysterotomy. The head was delivered using mild fundal pressure, and the shoulders and body followed without difficulty. The cord was clamped and cut and the infant was then handed off to the awaiting fructose loader. Cord blood was obtained. A segment of cord was isolated for cord gas collection. The placenta was manually extracted. The uterus was left in-situ and cleared of all clot and debris with moistened laparotomy sponges. The hysterotomy incision was repaired in two layers, the first in a running locked layer, the second in an imbricating layer. The gutters were cleared of clot and debris. A final inspection of the hysterotomy revealed good hemostasis. The rectus muscles were allowed to reapproximate naturally. The fascia was then reapproximated with looped PDS suture in a running nonlocked manner. The fascia was examined and found to be free of defect following closure. The subcutaneous tissue was copiously irrigated and reapproximated with 0-chromic in two layers, then the skin edges were closed with ying. A REUBEN dressing was applied. The mckeon was found to be draining clear yellow urine at completion of the procedure. I attest to the content of the Intraoperative Record and any orders documented therein. Any exceptions are noted below.
--- NOTE | 2024-11-03 21:29 | Anesthesiology Consultation ---
Date of Service November 03, 2024 Assessment & Plan Chart Review Chart Review: Acceptable Risk for Surgery Consults Requested none History Surgery Operation Date: 11/03/24 20:30 Proposed Procedures p Section in LD - Dory Yeung MD Height/Weight Height: 5 ft 4 in Weight: 136.531 kg Allergies Allergy/AdvReac Type Severity Reaction Status Date / Time No Known Allergies Allergy Verified 10/31/24 09:17 Medications Home Medications Medication Instructions Recorded Confirmed Last Taken blood pressure test kit-large #1 ea 03/01/22 10/31/24 Unknown OneTouch Verio test strips (blood #200 ea 04/15/22 10/31/24 Unknown sugar diagnostic) lancets 30 gauge (OneTouch Delica #200 ea 04/15/22 10/31/24 Unknown Lancets) blood-glucose meter (OneTouch 07/13/22 10/31/24 Unknown Verio Meter) pen needle, diabetic 32 gauge x #500 ea 07/13/22 10/31/24 Unknown 5/32" (BD Ultra-Fine Iza Pen Needle) blood-glucose sensor (Dexcom G7 04/30/24 10/31/24 Unknown Sensor device) loratadine 10 mg tablet (Allergy 10 mg PO QAM PRN Allergy Symptoms 05/01/24 10/31/24 Unknown Relief (loratadine)) #30 tabs insulin glargine 100 unit/mL (3 50 unit (0.5 mL) subcut BID #30 mL 05/03/24 10/31/24 Unknown mL) subcutaneous pen fluticasone propionate 50 1 spray intranasal QAM #16 grams 05/08/24 11/03/24 11/03/24 mcg/actuation nasal spray,suspension (Flonase Allergy Relief) insulin pump cart,auto,BT,G6/7 #30 ea 05/08/24 10/31/24 Unknown (Omnipod 5 G6-G7 Pods (Gen 5) subcutaneous cartridge) 21-iron fu-folic acid PO 05/25/24 10/31/24 Unknown [ Complete] aspirin 81 mg chewable tablet 81 mg PO DAILY 08/01/24 11/03/24 11/03/24 insulin lispro 200 unit/mL (3 mL) See Rx Instructions subcut DAILY 08/03/24 10/31/24 11/02/24 subcutaneous pen (Humalog KwikPen #30 mL U-200 Insulin) acetone (urine) test (Ketone Urine #50 ea 09/18/24 10/31/24 Unknown Test strips) levothyroxine 200 mcg tablet 200 mcg PO QAM #30 tabs 09/18/24 10/31/24 Unknown levothyroxine 75 mcg tablet 75 mcg PO DAILY #30 tabs 09/18/24 10/31/24 Unknown breast pump #1 ea 09/19/24 10/31/24 Unknown labetalol 100 mg tablet 100 mg PO BID #60 tabs 10/02/24 10/31/24 Unknown clindamycin phosphate 1 % topical 1 applic topical BID PRN Itching 11/03/24 11/03/24 10/27/24 gel Active Medications Generic Name Dose Route Start Last Admin Trade Name Freq PRN Reason Stop Dose Admin Cefazolin Sodium 3,000 mg in 72.5 mls @ 130 mls/hr 11/03/24 20:15 11/03/24 20:05 Ancef 3000mg IV 11/03/24 23:59 130 mls/hr PREOP ANGELITA Administration Protocol Past Medical History Medical History (Updated 06/29/24 @ 14:39 by Radha Toney) Vitamin B12 deficiency Trigger finger, left index finger Left carpal tunnel syndrome Acute cholecystitis due to biliary calculus Pre-eclampsia added to pre-existing hypertension URI (upper respiratory infection) Need for rubella vaccination Albuminuria Vitamin D deficiency Vaccination hesitancy by patient Acid reflux Anxiety Tension headache, chronic Vitamin D deficiency Constipation Dyslipidemia Condyloma acuminatum Carpal tunnel syndrome of right wrist Dermatofibroma Insomnia Depression Insulin pump in place Elevated cholesterol no meds Hx of migraines Chronic constipation History of pre-eclampsia Anxiety Past Family History Family History Mother Diabetes Anxiety Heart disease Hyperlipidemia Myocardial infarction Lung disease Hypertension Father Prostate cancer Diabetes Anxiety Heart disease Myocardial infarction Multiple sclerosis Lung disease Cancer Hypertension Grandmother (Maternal) Cancer Sister Diabetes Grandmother (Paternal) Transient ischemic attack (TIA) Other Colorectal cancer No family history of adverse response to anesthesia Ovarian cancer Denies family history of Breast cancer Past Surgical History Surgical History Hx laparoscopic cholecystectomy (10/22/22) S/P trigger finger release S/P carpal tunnel release History of gynecologic surgery H/O section H/O tooth extraction H/O sinus surgery History of tonsillectomy Social History Smoking Status: Never smoker Hx Alcohol Use: Yes Alcohol type: beer, wine and hard liquor alcohol intake frequency: holidays/special occasions only Hx Substance Use: No substance use type: does not use Physical Exam Vital Signs Last Vital Signs Temp 36.9 C 11/03/24 19:50 Pulse 88 11/03/24 21:27 Resp 20 11/03/24 19:50 BP 130/70 11/03/24 21:19 Pulse Ox 96 11/03/24 21:27 Testing Laboratory Results 11/03/24 20:10 11/03/24 20:10 PT 10.1 Seconds (9.0-12.0) 11/03/24 20:10 INR 0.9 (0.9-1.1) 11/03/24 20:10 APTT 28 Seconds (21-31) 11/03/24 20:10 Hemoglobin A1c 7.6 % (4.5-5.6) H 11/03/24 20:10 Blood Type A Positive 11/03/24 20:10 Antibody Screen NEGATIVE 11/03/24 20:10 11/03/24 20:03 POC Glucose 192 H
[2024-11-03] MEDS ORDERED: MoRPHine SULFATE 10 MG/ML CARP/VIAL IV PRN (21:32)
[2024-11-03] MEDS ORDERED: HYDROmorphone INJ 2 MG/ML SYR/VIAL IV PRN (21:32)
[2024-11-03] MEDS ORDERED: PROMETHAZINE HCL 6.25 MG in SODIUM CHLORIDE 0.9% 50 ML IV PRN (21:32)
[2024-11-03] MEDS ORDERED: ATROPINE SULFATE 0.1 MG/ML 10ML SYR IV PRN (21:32)
[2024-11-03] MEDS ORDERED: ONDANSETRON INJ 2 MG/ML 2 ML VIAL IV PRN (21:32)
[2024-11-03] MEDS ORDERED: KETOROLAC 30 MG/ML VIAL IV PRN (21:32)
[2024-11-03] MEDS: MAGNESIUM SULFATE 40GM / WTR 1,000 ML BAG IV ONE (21:39)
[2024-11-03] MEDS ORDERED: CALCIUM CARBONATE 500 MG CHEWABLE TAB PO PRN (21:59)
[2024-11-03] MEDS ORDERED: [UNRECOGNIZED DRUG - SUPPLY] SCH (21:59)
[2024-11-03] MEDS ORDERED: DIPHTHER/TETAN/PERTUS Vaccine (Tdap, Adol/Adult) 0.5mL IM ONE (21:59)
[2024-11-03] MEDS ORDERED: HYDROCORTISONE ACETATE 25 MG SUPP PR PRN (21:59)
[2024-11-03] MEDS ORDERED: LORATADINE 10 MG TAB PO PRN (21:59)
[2024-11-03] MEDS ORDERED: MAGNESIUM HYDROXIDE SUSP 30 ML UDC PO PRN (21:59)
[2024-11-03] MEDS ORDERED: SENNA 8.6 MG TAB PO PRN (21:59)
[2024-11-03] MEDS ORDERED: NON-FORMULARY MEDICATION (Blood-Glucose Sensor [Dexcom G7 Sensor] device) ONE (21:59)
[2024-11-03] MEDS ORDERED: diphenhydrAMINE 50 MG/ML VIAL IV PRN (21:59)
[2024-11-03] MEDS ORDERED: diphenhydrAMINE Capsule 25 MG CAP PO PRN (21:59)
[2024-11-03] MEDS ORDERED: SODIUM CHLORIDE 0.9% 1,000 ML IV SCH (21:59)
[2024-11-03] MEDS ORDERED: PROMETHAZINE 12.5 MG/50.5 ML BAG IV PRN (21:59)
[2024-11-03] MEDS ORDERED: NALOXONE HCL 0.4 MG/1 ML VIAL/CARP IV PRN (21:59)
[2024-11-03] MEDS ORDERED: BENZOCAINE 20% SPRY 85 APPLN/85 GM CAN EXT PRN (21:59)
--- NOTE | 2024-11-03 22:04 | Anesthesiology Progress Note ---
Date of Service November 03, 2024 Anesthesia Post Procedure Vital Signs Vital Signs: Temp Pulse Resp BP Pulse Ox 11/03/24 22:02 84 97 11/03/24 21:59 87 174/78 H 11/03/24 21:57 89 99 11/03/24 21:52 91 H 98 11/03/24 21:49 88 168/76 H 11/03/24 21:47 84 97 11/03/24 21:42 90 97 11/03/24 21:39 87 160/78 H 11/03/24 21:37 90 98 11/03/24 21:32 90 97 11/03/24 21:29 89 143/77 H 11/03/24 21:27 88 96 11/03/24 21:22 90 95 11/03/24 21:19 92 H 130/70 93 11/03/24 19:50 36.9 C 100 H 20 142/67 H 11/03/24 19:49 100 H 142/67 H Transfer of Care Handoff Completed per policy Notes Mental Status: alert / awake / arousable and participated in evaluation Patient Amnestic to Procedure: Yes Nausea / Vomiting: adequately controlled Pain: adequately controlled Airway Patency, RR, SpO2: stable & adequate BP & HR: stable & adequate Hydration State: stable & adequate Anesthetic Complications: no major complications apparent
[2024-11-03] MEDS ORDERED: CARBOHYDRATES FOR HYPOGLYCEMIA PO PRN (22:10)
[2024-11-03] MEDS ORDERED: GLUCAGON FOR INJ 1 MG VIAL SQ PRN (22:10)
[2024-11-03] MEDS ORDERED: GLUCOSE 10 TAB/TUBE PO PRN (22:10)
[2024-11-03] MEDS ORDERED: INSULIN ASPART 100 UNITS/ML VIAL SC PRN (22:10)
[2024-11-03] MEDS ORDERED: GLUCOSE 40% GEL 15 GM TUBE PO PRN (22:10)
[2024-11-03] MEDS ORDERED: DEXTROSE 50% 50 ML SYRINGE IV PRN (22:10)
[2024-11-03] MEDS ORDERED: Continuous Glucose Monitor SCH (22:15)
[2024-11-03] MEDS ORDERED: INSULIN, Rapid-Acting PUMP SC SCH (22:15)
[2024-11-03] MEDS: KETOROLAC 30 MG/ML VIAL IV SCH (22:27)
[2024-11-03] MEDS: OXYTOCIN 20 UNITS/LR 1,002 ML IV SCH (22:30)
[2024-11-03] MEDS: HYDROmorphone PCA 30 MG/30 ML IV PRN (23:19)
[2024-11-04] MEDS: ACETAMINOPHEN 325 MG TAB PO SCH (04:21)
[2024-11-04] MEDS: LEVOTHYROXINE SODIUM 200 MCG TABLET PO SCH (06:35)
[2024-11-04] MEDS: LEVOTHYROXINE SODIUM 75 MCG TABLET PO SCH (06:35)
[2024-11-04 06:49] LABS: Hematocrit (blood only) 25.4 % (37.0-47.0); Hemoglobin 8.1 g/dl (12.0-16.0); Immature Granulocytes # (auto) 0.04 K/uL (0.01-0.20); Immature Granulocytes % (auto) 0.5 %; Mean Corpuscular Hemoglobin 27.6 pg (25.0-34.0); Mean Corpuscular Volume 86.4 fL (80.0-100.0); Platelet Count 276 K/uL (130-400); RDW Standard Deviation 46.8 fL (36.4-46.3); Red Blood Count 2.94 M/uL (4.20-5.40); White Blood Count 8.67 K/ul (4.8-10.8)
--- NOTE | 2024-11-04 07:52 | Obstetrical Progress Note ---
Date of Service November 04, 2024 Assessment & Plan (1) Placental abruption: (2) Severe preeclampsia: Plan T1DM: Patient essentially self-managing with her dexcom and insulin pump. cHTN: usual dose 100mg PO Labetalol BID. Pressure this morning on mag is normal, so continuing only her home baseline dose. Severe preeclampsia: On the basis of BP 230/130 on arrival to OR as well as abruption without other etiology / suspected 2/2 preeclampsia, magnesium was started in the OR and continues. Plan 24 hr therapy. RCS x4: Surgically uncomplicated with the usual expected scar tissue. Recovery proceeds with a CONSULTANT NURSE for pain management today as she had GETA without any regional duramorph, and will advance to PO/IV prn pain meds after this evening when she is able to be ambulating after Mag therapy stops. Lovenox 40mg SQ QAM due to patient with morbid obesity and limited ambulation. Hypothyroid: Continue home doses synthroid Subjective Ambulation: limited ambulation Voiding: mckeon catheter in place Passing Gas:: Yes Diet Tolerance:: regular diet Lochia:: Small Feeding Type:: breast feeding Physical Exam Constitutional WD/WN, vitals as above Eyes PERRL, conjunctivae normal, anicteric sclerae Neck normal visual inspection Respiratory normal respiratory effort and able to speak in complete sentences; no respiratory distress and no labored breathing Cardiovascular Rate/Rhythm: regular rate and regular rhythm Extremities: + edema Chest (Breasts) Chest: normal inspection of chest Gastrointestinal (Abdomen) Inspection/Auscultation: abdomen normal to inspection Soft, postgravid, morbidly obese, REUBEN dressing in place without shadowing Neurologic DTR 1+ bilateral patellae Psychiatric A+Ox3, euthymic affect Genitourinary OB Exam Abdomen: + fundal height Fundus: + firm and + relation to umbilicus (fundus just below umbilicus); not tender Results & Data Vital Signs (Past 12 Hours) Vital Signs Temp Pulse Resp BP Pulse Ox 11/04/24 07:42 81 97 11/04/24 07:37 81 97 11/04/24 07:32 83 97 11/04/24 07:30 84 119/65 11/04/24 07:27 84 96 11/04/24 07:22 83 97 11/04/24 07:17 85 96 11/04/24 07:12 83 99 11/04/24 07:07 84 98 11/04/24 07:02 85 97 11/04/24 06:57 84 97 11/04/24 06:52 85 97 11/04/24 06:47 82 97 11/04/24 06:42 84 97 11/04/24 06:37 85 97 11/04/24 06:32 88 97 11/04/24 06:30 86 20 129/72 11/04/24 06:27 91 H 97 11/04/24 06:22 77 96 11/04/24 06:17 77 96 11/04/24 06:12 84 97 11/04/24 06:07 78 97 11/04/24 06:02 79 96 11/04/24 05:57 77 97 11/04/24 05:52 81 97 11/04/24 05:47 79 96 11/04/24 05:42 80 97 11/04/24 05:37 79 97 11/04/24 05:32 85 98 11/04/24 05:30 77 22 123/59 L 11/04/24 05:27 80 97 11/04/24 05:22 78 97 11/04/24 05:17 81 97 11/04/24 05:12 79 97 11/04/24 05:07 81 97 11/04/24 05:02 90 97 11/04/24 04:57 90 97 11/04/24 04:52 91 H 97 11/04/24 04:47 84 97 11/04/24 04:42 90 97 11/04/24 04:37 91 H 97 11/04/24 04:32 90 96 11/04/24 04:30 90 22 117/58 L 11/04/24 04:27 92 H 98 11/04/24 04:22 93 H 97 11/04/24 04:17 85 97 11/04/24 04:12 90 97 11/04/24 04:07 89 97 11/04/24 04:02 89 97 11/04/24 03:57 90 97 11/04/24 03:52 94 H 97 11/04/24 03:47 91 H 97 11/04/24 03:42 91 H 97 11/04/24 03:37 86 97 11/04/24 03:32 89 97 11/04/24 03:30 22 11/04/24 03:30 98.2 F 89 22 124/70 11/04/24 03:27 95 H 96 11/04/24 03:22 85 96 11/04/24 03:17 84 97 11/04/24 03:12 87 97 11/04/24 03:07 85 96 11/04/24 03:02 84 96 11/04/24 02:57 86 96 11/04/24 02:52 86 96 11/04/24 02:47 85 96 11/04/24 02:42 89 96 11/04/24 02:37 91 H 96 11/04/24 02:32 88 96 11/04/24 02:30 18 11/04/24 02:30 86 123/57 L 11/04/24 02:27 88 96 11/04/24 02:22 90 96 11/04/24 02:17 97 H 97 11/04/24 02:12 96 H 97 11/04/24 02:07 100 H 97 11/04/24 02:02 96 H 97 11/04/24 01:57 102 H 97 11/04/24 01:52 98 H 98 11/04/24 01:47 93 H 96 11/04/24 01:42 100 H 97 11/04/24 01:37 108 H 97 11/04/24 01:32 98 H 97 11/04/24 01:30 98 H 24 135/72 11/04/24 01:27 96 H 96 11/04/24 01:22 93 H 96 11/04/24 01:17 96 H 96 11/04/24 01:12 92 H 96 11/04/24 01:07 92 H 96 11/04/24 01:02 95 H 97 11/04/24 00:57 93 H 97 11/04/24 00:52 95 H 96 11/04/24 00:47 94 H 97 11/04/24 00:42 101 H 97 11/04/24 00:37 92 H 96 11/04/24 00:32 98 H 96 11/04/24 00:30 91 H 22 137/78 11/04/24 00:27 94 H 97 11/04/24 00:22 90 96 11/04/24 00:17 88 97 11/04/24 00:12 94 H 97 11/04/24 00:07 95 H 96 11/04/24 00:02 94 H 96 11/04/24 00:00 93 H 141/68 H 11/03/24 23:57 91 H 97 11/03/24 23:52 93 H 96 11/03/24 23:47 89 96 11/03/24 23:42 94 H 97 11/03/24 23:37 95 H 96 11/03/24 23:32 92 H 96 11/03/24 23:29 94 H 147/75 H 11/03/24 23:27 95 H 97 11/03/24 23:22 88 96 11/03/24 23:19 97.9 F 88 22 144/68 H 11/03/24 23:17 85 96 11/03/24 23:12 91 H 96 11/03/24 23:10 92 H 156/71 H 11/03/24 23:07 91 H 96 11/03/24 23:02 87 96 11/03/24 22:59 84 158/77 H 11/03/24 22:57 88 97 11/03/24 22:52 86 97 11/03/24 22:49 90 22 162/81 H 11/03/24 22:47 85 96 11/03/24 22:42 83 96 11/03/24 22:39 82 152/79 H 11/03/24 22:37 86 98 11/03/24 22:32 89 100 11/03/24 22:29 86 145/67 H 11/03/24 22:27 88 99 11/03/24 22:22 90 99 11/03/24 22:19 82 20 151/65 H 11/03/24 22:17 85 99 11/03/24 22:12 85 100 11/03/24 22:09 86 20 159/73 H 11/03/24 22:07 84 99 11/03/24 22:02 84 97 11/03/24 21:59 87 20 174/78 H 11/03/24 21:57 89 99 11/03/24 21:52 91 H 98 11/03/24 21:49 88 18 168/76 H 11/03/24 21:47 84 97 11/03/24 21:42 90 97 11/03/24 21:39 87 20 160/78 H 11/03/24 21:37 90 98 11/03/24 21:32 90 97 11/03/24 21:29 89 20 143/77 H 11/03/24 21:27 88 96 11/03/24 21:22 90 95 11/03/24 21:19 22 11/03/24 21:19 97.7 F 92 H 20 130/70 93 11/03/24 19:50 98.4 F 100 H 20 142/67 H 11/03/24 19:49 100 H 142/67 H
[2024-11-04] MEDS: PRENATAL VITAMIN 1 TAB PO SCH (08:01)
[2024-11-04] MEDS: DOCUSATE SODIUM 100 MG CAP PO SCH (08:01)
[2024-11-04] MEDS: FERROUS SULFATE 325 MG TAB PO SCH (08:01)
[2024-11-04] MEDS: SIMETHICONE 80 MG CHEW PO SCH (08:01)
[2024-11-04] MEDS: FLUTICASONE PROPIONATE NA SPR 16 GM BTL SCH (08:58)
[2024-11-04] MEDS: LABETALOL HCL 100 MG TAB PO SCH (08:59)
[2024-11-04] MEDS ORDERED: INSULIN LISPRO 200 UNIT/ML SQ SCH (09:00)
[2024-11-04] MEDS ORDERED: [UNRECOGNIZED DRUG - OTHER] SQ SCH (09:00)
[2024-11-04] MEDS ORDERED: LABETALOL HCL 200 MG TAB PO SCH (09:00)
[2024-11-04] MEDS ORDERED: INSU SQ SCH (09:00)
[2024-11-04] MEDS: ONDANSETRON INJ 2 MG/ML 2 ML VIAL IV PRN (09:02)
[2024-11-04] MEDS: ENOXAPARIN INJ 40 MG/0.4 ML SYR SQ SCH (09:07)
[2024-11-04] MEDS: MAGNESIUM SULFATE / WTR 40 GM/1,000 ML BAG IV SCH (13:20)
[2024-11-04] MEDS ORDERED: LACTATED RINGER'S 1,000 ML IV SCH (14:30)
[2024-11-04] MEDS ORDERED: KETOROLAC 30 MG/ML VIAL IV PRN (21:32)
[2024-11-04] MEDS: IBUPROFEN 600 MG TAB PO SCH (22:00)
[2024-11-04 22:01] VITALS: RESP 18
--- NOTE | 2024-11-05 05:55 | Obstetrical Progress Note ---
Date of Service November 05, 2024 Assessment & Plan (1) Severe preeclampsia: (2) Diabetes mellitus type 1: (3) Morbid obesity: (4) Hypothyroidism: (5) Placental abruption: (6) state: (7) Depression: (8) Anxiety: Plan T1DM - continue self-management of dexcom and insulin pump. cHTN w/ superimposed severe preeclampsia - BP was 230/130 on arrival to the OR as well as placental abruption. Magnesium therapy was starting in OR and continued for 24 hours. Therapy stopped at 21:15. Pressures have been stable since discontinuation of therapy. This morning 128/69 - continue 100mg PO Labetalol BID. RCS x4 - REUBEN dressing in place. Pain has been managed well with scheduled tylenol and ibuprofen. - continue Lovenox 40mg SQ QAM due to patient with morbid obesity and limited ambulation. Hypothyroid - continue home synthroid Depression/anxiety - patient emotional at bedside this morning given events of delivery and her baby. - restart sertraline 50 mg for one week. Increase to 75 mg after 1 week. Discharge home today. Follow-up with Dr. Yeung in 1 week for staple removal, dressing change, and BP check and in 6 weeks for check. Admission and Anticipated Discharge Date Admission Date: November 03, 2024 Anticipated date of discharge: 11/05/24 Supervising Physician Co-Signing Physician Notes Resident Physician Supervision Note: I interviewed and examined the patient. Discussed with Dr. Mcdonald and agree with findings and plan as documented in the note. Any exceptions or clarifications are listed here: No need to continue labetalol after discharge home. Patient to be released today and will be traveling to [place] [facility] to be with her who is transferred there for preemie / NICU care. Aware of f/u to be done in our office at 7-10 days postop for removal of REUBEN and [place]. Documented By: Dory Yeung MD, FACOG Subjective Rayna RamirezZanderMatheus is a 34 y/p day 2 s/p emergency c- section secondary to placental abruption at 31w 0d. was also complicated by T1DM, cHTN with superimposed severe pre-eclampsia, morbid obesity, and hypothyroidism. Ambulation: ambulating with some assistance Voiding: no voiding problems Passing Gas:: Yes Diet Tolerance:: regular diet Lochia:: Small Feeding Type:: breast-feeding Current Pain Level: 1/10 Resting comfortably this AM in NAD. Denies GRAVES, CP, SOB, N/V/D, LE pain/swelling. Review of Systems Review of Systems: All systems reviewed & are unremarkable except as noted in HPI & below Physical Exam Physical Exam: General: patient resting comfortably, NAD, non-toxic in appearance, AA&O x 4, answers questions appropriately. Skin: warm, dry, intact HEENT: NC/AT, anicteric sclera, conjunctiva without injection, moist mucus membranes. Heart: +S1/S2, regular, no m/r/g Lungs: equal air entry bilaterally, no rales/rhonchi/wheezes Abd: +BS, soft, NT/ND, uterine fundus firm at umbilicus, REUBEN dressing in place Ext: warm, no clubbing/cyanosis or edema, Angeli's neg. Neuro: nonfocal, patient AA&O x 4, speech intact, no facial droop, moving all extremities on command. Constitutional: WD/WN, vitals as above Results & Data Vital Signs (Past 12 Hours) Vital Signs Temp Pulse Pulse Resp BP BP Pulse Ox 11/05/24 04:00 36.6 C 84 18 128/69 96 11/04/24 21:45 36.5 C 87 18 122/76 98 11/04/24 20:57 85 97 11/04/24 20:52 81 96 11/04/24 20:47 87 97 11/04/24 20:42 93 H 97 11/04/24 20:37 91 H 97 11/04/24 20:32 89 97 11/04/24 20:30 88 24 120/65 11/04/24 20:27 91 H 97 11/04/24 20:22 91 H 97 11/04/24 20:17 93 H 97 11/04/24 20:12 91 H 97 11/04/24 20:07 92 H 97 11/04/24 20:02 93 H 98 11/04/24 19:57 93 H 97 11/04/24 19:52 85 96 11/04/24 19:47 83 97 11/04/24 19:42 82 96 11/04/24 19:37 81 97 11/04/24 19:32 89 97 11/04/24 19:30 20 11/04/24 19:30 36.8 C 88 20 131/69 11/04/24 19:27 88 97 11/04/24 19:22 85 97 11/04/24 19:17 85 96 11/04/24 19:12 94 H 97 11/04/24 19:07 76 97 11/04/24 19:02 78 97 11/04/24 18:57 77 97 11/04/24 18:52 79 97 11/04/24 18:48 83 94 11/04/24 18:47 84 95 11/04/24 18:42 83 95 11/04/24 18:41 84 92 11/04/24 18:37 83 96 11/04/24 18:32 79 96 11/04/24 18:30 78 124/61 11/04/24 18:27 75 96 11/04/24 18:22 78 96 11/04/24 18:17 77 96 11/04/24 18:12 74 97 11/04/24 18:07 77 96 11/04/24 18:02 78 97 11/04/24 17:57 77 96 11/04/24 17:52 79 96 11/04/24 17:47 82 97 11/04/24 17:42 84 97 11/04/24 17:37 85 98 11/04/24 17:32 87 98 11/04/24 17:31 88 149/63 H 11/04/24 17:27 91 H 98 O2 Del Method 11/05/24 04:00 Room Air 11/04/24 21:45 Room Air 11/04/24 20:57 11/04/24 20:52 11/04/24 20:47 11/04/24 20:42 11/04/24 20:37 11/04/24 20:32 11/04/24 20:30 11/04/24 20:27 11/04/24 20:22 11/04/24 20:17 11/04/24 20:12 11/04/24 20:07 11/04/24 20:02 11/04/24 19:57 11/04/24 19:52 11/04/24 19:47 11/04/24 19:42 11/04/24 19:37 11/04/24 19:32 11/04/24 19:30 11/04/24 19:30 11/04/24 19:27 11/04/24 19:22 11/04/24 19:17 11/04/24 19:12 11/04/24 19:07 11/04/24 19:02 11/04/24 18:57 11/04/24 18:52 11/04/24 18:48 11/04/24 18:47 11/04/24 18:42 11/04/24 18:41 11/04/24 18:37 11/04/24 18:32 11/04/24 18:30 11/04/24 18:27 11/04/24 18:22 11/04/24 18:17 11/04/24 18:12 11/04/24 18:07 11/04/24 18:02 11/04/24 17:57 11/04/24 17:52 11/04/24 17:47 11/04/24 17:42 11/04/24 17:37 11/04/24 17:32 11/04/24 17:31 11/04/24 17:27
[2024-11-05 06:05] LABS: Hematocrit (blood only) 22.6 % (37.0-47.0); Hemoglobin 7.4 g/dl (12.0-16.0)
[2024-11-05 07:05] VITALS: BP 132/82; PULSE 88; TEMP 97.7; O2SAT 97
[2024-11-05] MEDS ORDERED: IBUPROFEN 600 MG TAB PO PRN (21:32)
[2024-11-06] MEDS ORDERED: ACETAMINOPHEN 325 MG TAB PO PRN (03:32)
== END 2024-11-05 14:25 | disposition home or self-care (01) | DRG 786 ==
LOC: OPB 19:32 → 4S1 19:33 → 4E2 11-04 21:49